=== PATIENT | male | born 1955 | race Caucasian/White ===

== ENCOUNTER 2017-08-21 08:47 | Inpatient (IN) | payer OTHER ==
[2017-08-21] MEDS ORDERED: ONDANSETRON 4 MG/2 ML VIAL IVPUSH ONE ×2 (09:38→14:35)
[2017-08-21] MEDS ORDERED: SODIUM CHLORIDE 0.9% 500 ML INFUS.BAG IV ONE ×2 (09:38→12:11)
[2017-08-21 10:08] LABS: BASOPHIL 0.5 % (0-2.0); EOSINOPHIL 0.2 % (0-4.5); MCH 32.3 pg (25.7-33.7); MEAN CELL VOLUME 94.9 fl (80-96); MEAN PLT VOLUME 8.7 fl (7.5-11.1); NEUTROPHILS 80.8 % (42.8-82.8); PLATELET COUNT 264 K/MM3 (134-434); RDW 12.9 % (11.9-15.9); WHITE BLOOD COUNT 12.1 K/mm3 (4.0-10.0)
[2017-08-21] MEDS ORDERED: ONDANSETRON 4 MG/2 ML VIAL ONE ×2 (10:14→14:35)
[2017-08-21 10:21] LABS: INR 1.08 (0.82-1.09); PROTHROMBIN TIME (PATIENT) 11.9 SEC (9.98-11.88)
[2017-08-21 10:23] LABS: ACTIVATED PTT 30.6 SECONDS (26.9-34.4)
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
[2017-08-21 10:35] LABS: ALK PHOS 110 U/L (45-117); ANION GAP 12 (8-16); CALCIUM 9.8 mg/dL (8.5-10.1); CO2 26 mmol/L (21-32); CREATININE 1.4 mg/dL (0.7-1.3); GLUCOSE,RANDOM 134 mg/dL (74-106); MAGNESIUM 2.4 mg/dL (1.8-2.4); SGOT/AST 81 U/L (15-37); SGPT/ALT 99 U/L (12-78); TOT PROT 8.1 g/dl (6.4-8.2)
[2017-08-21 12:04] LABS: URINE APPEARANCE CLEAR; URINE BILIRUBIN NEGATIVE (NEGATIVE); URINE BLOOD NEGATIVE (NEGATIVE); URINE COLOR AMBER; URINE GLUCOSE (UA) NEGATIVE (NEGATIVE); URINE KETONE NEGATIVE (NEGATIVE); URINE LEUK ESTERASE NEGATIVE (NEGATIVE); URINE NITRITE NEGATIVE (NEGATIVE); URINE PROTEIN NEGATIVE (NEGATIVE); URINE UROBILINOGEN 4.0 E.U/dl mg/dL (0.2-1.0)
[2017-08-21] MEDS ORDERED: LIDOCAINE HCL 2% JELLY (5 ML/TUBE) ONE (14:27)
[2017-08-21] MEDS ORDERED: morphine CARPU-JECT 4 MG/1 ML DISP.SYRIN IVPUSH ONE (14:57)
[2017-08-21] MEDS ORDERED: morphine CARPU-JECT 4 MG/1 ML DISP.SYRIN ONE (14:57)
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
--- NOTE | 2017-08-21 15:58 | EKG ---
Test Reason : Blood Pressure : / mmHG Vent. Rate : 100 BPM Atrial Rate : 100 BPM P-R Int : 152 ms QRS Dur : 082 ms QT Int : 338 ms P-R-T Axes : 057 -29 062 degrees QTc Int : 436 ms NORMAL SINUS RHYTHM POSSIBLE LEFT ATRIAL ENLARGEMENT NONSPECIFIC ST ABNORMALITY ABNORMAL ECG NO PREVIOUS ECGS AVAILABLE Confirmed by ABBY HERNANDEZ MD ([id number]) on 08/21/2017 3:57:22 PM Referred By: Confirmed By:ABBY HERNANDEZ MD
[2017-08-21] MEDS ORDERED: ONDANSETRON 4 MG/2 ML VIAL IVPB PRN ×2 (16:51→20:45)
[2017-08-21] MEDS ORDERED: morphine CARPU-JECT 2 MG/1 ML DISP.SYRIN IVPUSH PRN (16:51)
[2017-08-21] MEDS ORDERED: MIDAZOLAM HCL 2 MG/2 ML SINGLE DOSE VIAL ONE (16:53)
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
[2017-08-21] MEDS ORDERED: SODIUM CHLORIDE 1,000 ML IV SCH (17:00)
[2017-08-21] MEDS ORDERED: SUCCINYLCHOLINE CHLORIDE 200 MG/10 ML VIAL ONE (17:01)
[2017-08-21] MEDS ORDERED: PROPOFOL 20 ML ONE (17:02)
[2017-08-21] MEDS ORDERED: ROCURONIUM BROMIDE 50 MG/5 ML VIAL ONE (17:04)
[2017-08-21] MEDS ORDERED: CEFOXITIN SODIUM 1 GM IVPB ONE (17:04)
[2017-08-21] MEDS ORDERED: ePHEDrine SULFATE 50 MG/1 ML AMPULE ONE (17:30)
[2017-08-21] MEDS ORDERED: cefOXitin SODIUM 1 GM VIAL (RESTRICTED TO ID) IVPB ONE (17:38)
[2017-08-21] MEDS ORDERED: morphine CARPU-JECT 4 MG/1 ML DISP.SYRIN IVPUSH PRN (17:54)
[2017-08-21] MEDS ORDERED: DEXTROSE 5%-0.45% SALINE 1,000 ML IV SCH (18:00)
[2017-08-21] MEDS ORDERED: HYDROmorphone HCL/PF 1 MG/ML VIAL (FOR PYXIS CHARGING ONLY) ONE ×2 (18:00→18:23)
[2017-08-21] MEDS ORDERED: CALCIUM CHLORIDE 1 GM/10 ML *DISP.SYRIN ONE (18:21)
[2017-08-21] MEDS ORDERED: NEOSTIGMINE METHYLSULFATE 0.5 MG/ML - 10 ML MDV ONE (18:31)
[2017-08-21] MEDS ORDERED: GLYCOPYRROLATE 0.2 MG/1 ML VIAL ONE (18:31)
--- NOTE | 2017-08-21 18:36 | PN ---
Teaching Attending Note Name of Resident: Norma Sales ATTENDING PHYSICIAN STATEMENT I saw and evaluated the patient. I reviewed the resident's note and discussed the case with the resident. I agree with the resident's findings and plan as documented. SUBJECTIVE: Pt is seen after surgery in recovery CC: N/V , Abd pain x few days HPI : has h/o ventral hernia which was reducible in past. he developed abd pain few days ago. Skin above abd hernia was became erythematous and hernia became non-reducible. he developed N/V , and then constipation . in ER he was found to have incarcerated hernia , and went to OR OBJECTIVE: drowsy but arousable. Dry MM, NGT with green drainage CV: RRR, tachy Lungs : clear anteriorly Abd : soft, positive BS , surgical dressing on mid abd. TTP . Ext : no edema ASSESSMENT AND PLAN: 62 y/o man with h/o abd wall hernia after laparotomy, h/o HTN who presented with abd pain and was found to have incarcerated hernia 1- Incarcerated ventral hernia: s/p surgical repair POD0. significant blood loss reported during sx . - check CBC in 2 hours . - start meropenem due to the degree of ischemia seen ( given zosyn per Surgical PA ) - ID consult - send blood cx - IVF - pain control , morphine - NPO - monitor electrolytes and blood count. 2- h/o HTN: hold po meds . - labetalol IV PRN fro BP > 170/100 3- DVT px : SCDS, hold any heparin ICU placement Critical Care Total Critical Care Time (in minutes): 45 Critical Care Statement: The care of this patient involved high complexity decision making to prevent further life threatening deterioration of the patient 's condition and/or to evaluate & treat vital organ system(s) failure or risk of failure.
[2017-08-21] MEDS ORDERED: LABETALOL HCL 5 MG/1 ML (100MG/20 ML VIAL) IVPUSH PRN (18:47)
[2017-08-21] MEDS ORDERED: HYDROmorphone *PCA* 10MG/50ML DISP.SYRIN PCA SCH (19:30)
[2017-08-21] MEDS ORDERED: LACTATED RINGERS SOLUTION 1,000 ML IV SCH (19:30)
--- NOTE | 2017-08-21 19:33 | CONSULT ---
Consult Consult Specialty:: Surgery Reason for Consultation:: Intraoperative consultation- incarcerated hernia with small bowel involvement and mesenteric edema - History of Present Illness History of Present Illness: 62 male brought emergently to OR by Dr Orlando for incarecerated ventral hernia Intraop noted to have small bowel involvement with diffuse mesenteric edema and congestion Asked for intraoperative consult Needed small bowel resection for mesenteric congestion and involvement Agree with findings and operative management by Dr Orlando - History Source History Provided By: Medical Record Limitations to Obtaining History: Intubated - Alcohol/Substance Use Hx Alcohol Use: No - Smoking History Smoking history: Never smoked Home Medications - Allergies Allergies/Adverse Reactions: Allergies Allergy/AdvReac Type Severity Reaction Status Date / Time No Known Allergies Allergy Verified 08/21/17 08:56 - Home Medications Home Medications: Ambulatory Orders Aspirin [ASA -] 81 mg PO DAILY 08/21/17 Lisinopril/Hydrochlorothiazide [Lisinopril-Hctz 10-12.5 mg Tab] 1 each PO DAILY 08/21/17 Family Disease History - Family Disease History Family History: Unable to Obtain Review of Systems Unable to obtain ROS, reason: Intraop Physical Exam Vital Signs: Vital Signs Temperature 98.3 F 08/21/17 13:38 Pulse Rate 98 H 08/21/17 15:23 Respiratory Rate 18 08/21/17 15:23 Blood Pressure 125/104 08/21/17 15:23 O2 Sat by Pulse Oximetry (%) 95 08/21/17 15:23 Gastrointestinal: Yes: Other (Incarcerated small bowel with diffuse mesenteric congestion) Problem List - Problems (1) Incarcerated hernia Code(s): K46.0 - UNSP ABDOMINAL HERNIA WITH OBSTRUCTION, WITHOUT GANGRENE Assessment/Plan Intraop consult Agree with Dr Orlando's findings Small bowel resection needed for mesenteric congestion and edema and bowel incarceration
--- NOTE | 2017-08-21 19:33 | CONSULT ---
Consult Consult Specialty:: Surgery Reason for Consultation:: Strangulated ventral hernia, intestuinal obstruction. Consult dictated, [place]. [id number]. - Alcohol/Substance Use Hx Alcohol Use: No - Smoking History Smoking history: Never smoked Home Medications - Allergies Allergies/Adverse Reactions: Allergies Allergy/AdvReac Type Severity Reaction Status Date / Time No Known Allergies Allergy Verified 08/21/17 08:56 - Home Medications Home Medications: Ambulatory Orders Aspirin [ASA -] 81 mg PO DAILY 08/21/17 Lisinopril/Hydrochlorothiazide [Lisinopril-Hctz 10-12.5 mg Tab] 1 each PO DAILY 08/21/17 Physical Exam Vital Signs: Vital Signs Temperature 98.3 F 08/21/17 13:38 Pulse Rate 98 H 08/21/17 15:23 Respiratory Rate 18 08/21/17 15:23 Blood Pressure 125/104 08/21/17 15:23 O2 Sat by Pulse Oximetry (%) 95 08/21/17 15:23 Assessment/Plan Incarcerated ventral hernia with strangulation , Renal dysfunction, Leucocytosis, Hypertension. Plan : Emergency laparotomy, hydrate , consent obtained. Antibiotics
[2017-08-21] MEDS: HYDROmorphone HCL CARPU-JECT 1 MG/1 ML DISP.SYRIN IVPUSH PRN ×4 (19:35→19:50)
[2017-08-21] MEDS ORDERED: HYDROmorphone HCL CARPU-JECT 2 MG/1 ML DISP.SYRIN ONE ×2 (19:35→20:06)
--- NOTE | 2017-08-21 19:39 | OP ---
Operative Note - Note: Operative Date: 08/21/17 Pre-Operative Diagnosis: Strangulated ventral / incisonal hernia,. Hyperetension,. Renal dysfunction ,. Dehydration,. Leucocytosis. Operation: Exploratory laparotomy,. Release of strangulated omentum and small intestine. Small bowel resection with anastamosis,. Omentectomy, lysis of adhesions,. Primary repair of incisional hernia. Findings: Incarcerated incisional / ventral hernia with strangulation. Srangulated small intestine and omentum, Omental adhesions, Massive edema of small bowel mesentery. Post-Operative Diagnosis: Other (Strangulated incisional / ventral hernia, infarcted gangrenous omentum , excised; srangulated loop of small intestinr resected and primary anastamosis performed, marked edematous mesentery of small intestine to the base of the mesentery, with venous congestion.) Surgeon: Jg Orlando Hydrogen Power Plant Engineer: Marguerite Bolden () Anesthesiologist/VELVET STEAMER: Petra Ling Anesthesia: General Specimens Removed: 1)Infarcted omentum,. 2) Strangulated small intestine. Estimated Blood Loss (mls): 250 Operative Report Dictated: Yes
[2017-08-21] MEDS ORDERED: PIPERACILLIN/TAZOB 4.5 GM 4.5 GM in DEXTROSE 5%-WATER - 100 ML IVPB ONE (19:52)
[2017-08-21] MEDS ORDERED: PIPERACILLIN/TAZOB 3.375 GM 3.375 GM in DEXTROSE 5%-WATER - 50 ML IVPB SCH (20:00)
[2017-08-21] MEDS ORDERED: MEROPENEM 500 MG VIAL (RESTRICTED TO ID) IVPB SCH (20:00)
[2017-08-21] MEDS ORDERED: HYDROmorphone HCL CARPU-JECT 1 MG/1 ML DISP.SYRIN IVPUSH ONE (20:10)
[2017-08-21] MEDS ORDERED: HYDROmorphone *PCA* 10MG/50ML DISP.SYRIN PCA ONE (20:38)
[2017-08-21] MEDS ORDERED: HYDROmorphone HCL CARPU-JECT 1 MG/1 ML DISP.SYRIN IVPUSH PRN (20:45)
[2017-08-21] MEDS: HYDROmorphone *PCA* 10MG/50ML DISP.SYRIN PCA SCH (21:00)
[2017-08-21] MEDS: MEROPENEM 500 MG in DEXTROSE 5%-WATER - 100 ML IVPB SCH (21:20)
--- NOTE | 2017-08-21 21:49 | SURG ---
Surgery Artificial Foliage Arranger Note Artificial Foliage Arranger: Marguerite Bolden PA-C Date of Service: 08/21/17 Diagnosis: Strangulated ventral / incisonal hernia,. Hyperetension,. Renal dysfunction , . Dehydration,. Leucocytosis. Procedure: Exploratory laparotomy,. Release of strangulated omentum and small intestine. Small bowel resection with anastamosis,. Omentectomy, lysis of adhesions,. Primary repair of incisional hernia. I was present for the entirety of the operative procedure. For further detail, please refer to operative report. Visit type - Case Type Case Type: ED Admission - Emergency Emergency Visit: Yes ED Registration Date: 08/21/17 Care time: The patient presented to the Emergency Department on the above date and was hospitalized for further evaluation of their emergent condition. - New patient This patient is new to me today: Yes Date on this admission: 08/21/17 - Critical Care Critical Care patient: No
[2017-08-21] MEDS ORDERED: HEPARIN NA (PORCINE) 5,000 UNITS/ML 1ML VIAL SQ SCH (22:00)
[2017-08-21] MEDS: LACTATED RINGERS SOLUTION 1,000 ML IV SCH (22:30)
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
[2017-08-22 01:34] VITALS: BMI 27.6
[2017-08-22] MEDS ORDERED: PIPERACILLIN/TAZOB 3.375 GM 3.375 GM in DEXTROSE 5%-WATER - 50 ML IVPB ONE (04:00)
[2017-08-22] MEDS: MEROPENEM 500 MG in DEXTROSE 5%-WATER - 100 ML IVPB SCH (05:15)
[2017-08-22 05:54] LABS: BASOPHIL 0.1 % (0-2.0); MCH 33.5 pg (25.7-33.7); MCHC 34.8 g/dl (32.0-35.9); MEAN CELL VOLUME 96.2 fl (80-96); MEAN PLT VOLUME 8.6 fl (7.5-11.1); NEUTROPHILS 85.9 % (42.8-82.8); PLATELET COUNT 230 K/MM3 (134-434); RDW 13.2 % (11.9-15.9)
[2017-08-22 06:21] LABS: ALBUMIN 2.8 g/dl (3.4-5.0); ANION GAP 10 (8-16); CALCIUM 8.2 mg/dL (8.5-10.1); CO2 23 mmol/L (21-32); CREATININE 1.7 mg/dL (0.7-1.3); GLUCOSE,RANDOM 127 mg/dL (74-106); PHOSPHOROUS 4.1 mg/dL (2.5-4.9); SGOT/AST 58 U/L (15-37); SGPT/ALT 86 U/L (12-78)
[2017-08-22 06:24] LABS: ALK PHOS 61 U/L (45-117); BILIRUBIN,TOTAL 1.9 mg/dL (0.2-1.0); TOT PROT 5.1 g/dl (6.4-8.2)
--- NOTE | 2017-08-22 08:07 | PN ---
Physical Exam: SUBJECTIVE: Patient seen and examined. POD#1 "Strangulated incisional / ventral hernia, infarcted gangrenous omentum , excised; srangulated loop of small intestinr resected and primary anastamosis performed, marked edematous mesentery of small intestine to the base of the mesentery, with venous congestion" OBJECTIVE: Vital Signs Period Temp Pulse Resp BP Sys/Jacome Pulse Ox Last 24 Hr 97.9 F-98.2 F 88-128 10-24 81-166/58-104 95-100 Intake & Output 08/19/17 08/20/17 08/21/17 08/22/17 23:59 23:59 23:59 23:59 Intake Total 4000 Output Total 400 100 Balance 3600 -100 Weight 84.822 kg 90 kg Constitutional: Yes: Calm Eyes: Yes: Conjunctiva Clear, EOM Intact Cardiovascular: Yes: Regular Rate and Rhythm, S1, S2 Respiratory: Yes: CTA Bilaterally Gastrointestinal: Yes: Distention, Hypoactive Bowel Sounds, Tenderness. Clean wound. Edema: No Wound/Incision: Yes: Clean/Dry, Dressing Dry and Intact Neurological: Yes: Alert, Oriented ...Motor Strength: WNL Psychiatric: Yes: Alert, Oriented Laboratory Results - last 24 hr 08/22/17 08/22/17 05:00 05:00 WBC 8.0 D RBC 3.37 L D Hgb 11.3 L D Hct 32.4 L D MCV 96.2 H MCH 33.5 MCHC 34.8 RDW 13.2 Plt Count 230 MPV 8.6 Neutrophils % 85.9 H Lymphocytes % 5.7 L D Monocytes % 8.3 Eosinophils % 0.0 D Basophils % 0.1 Sodium 142 Potassium 4.6 Chloride 109 H D Carbon Dioxide 23 Anion Gap 10 BUN 39 H Creatinine 1.7 H D Creat Clearance w eGFR 40.78 Random Glucose 127 H Calcium 8.2 L Phosphorus 4.1 Magnesium 2.0 Total Bilirubin 1.9 H AST 58 H D ALT 86 H Alkaline Phosphatase 61 D Total Protein 5.1 L D Albumin 2.8 L D Active Medications Generic Name Dose Route Start Last Admin Trade Name Freq PRN Reason Stop Dose Admin Hydromorphone HCl 0 mg 08/21/17 20:45 08/21/17 21:00 Dilaudid Sign Language Interpreter - WEIGH MACHINE OPERATOR 08/28/17 19:23 10 mg WEIGH MACHINE OPERATOR SANTOSH Administration Protocol Hydromorphone HCl 0.5 mg 08/21/17 20:45 Dilaudid Injection - IVPUSH 08/24/17 19:22 [id number] PRN PAIN Lactated Ringer's 1,000 mls @ 125 mls/hr 08/21/17 22:30 08/21/17 22:30 Lactated Ringers Solution IV 125 mls/hr ASDIR SANTOSH Administration Meropenem 500 mg 08/21/17 20:00 Merrem (Restricted To Id) - IVPB 08/22/17 19:59 Q8H-IV SANTOSH Ondansetron HCl 4 mg 08/21/17 20:45 Zofran Injection IVPB Q6H PRN NAUSEA ASSESSMENT/PLAN: a/p: 62 yo man with strangulated hernia c/b infarcted gangrenous omentum POD: 0 , LORE likely prerenal from abdominal sepsis NPO Boluses of Lactated ringer's to correct creatinine from prerenal LORE Zofran prn for nausea Pain management with WEIGH MACHINE OPERATOR ABX coverage Incentive spirometry O2 for sat >90% Outpatient follow up of lung nodule seen on CT SCD for DVT prophylaxis Visit type - Emergency Visit Emergency Visit: No - New Patient This patient is new to me today: Yes Date on this admission: 08/22/17 - Critical Care Critical Care patient: Yes Total Critical Care Time (in minutes): 30 Critical Care Statement: The care of this patient involved high complexity decision making to prevent further life threatening deterioration of the patient 's condition and/or to evaluate & treat vital organ system(s) failure or risk of failure.
[2017-08-22] MEDS ORDERED: LACTATED RINGERS SOLUTION 1,000 ML IV ONE (08:27)
--- NOTE | 2017-08-22 08:36 | PN ---
Progress Note, Physician Chief Complaint: Patient is awake, alert , fairly comfortable. History of Present Illness: S/P laparotomy , resection of strangulated small intestine and omentum , primary repair of ventral hernia, with lysis of adhesions. P.o.day 1 - Current Medication List Current Medications: Active Medications Hydromorphone HCl (Dilaudid Sound Technician -) 0 mg INTAKE COORDINATOR INTAKE COORDINATOR SANTOSH PRN Reason: Protocol Stop: 08/28/17 19:23 Last Admin: 08/21/17 21:00 Dose: 10 mg Hydromorphone HCl (Dilaudid Injection -) 0.5 mg IVPUSH [id number] PRN PRN Reason: PAIN Stop: 08/24/17 19:22 Lactated Ringer's (Lactated Ringers Solution) 1,000 mls @ 125 mls/hr IV ASDIR SANTOSH Last Admin: 08/21/17 22:30 Dose: 125 mls/hr Meropenem (Merrem (Restricted To Id) -) 500 mg IVPB Q8H-IV SANTOSH Stop: 08/23/17 12:59 Ondansetron HCl (Zofran Injection) 4 mg IVPB Q6H PRN PRN Reason: NAUSEA - Objective Vital Signs: Vital Signs Temperature 98.2 F 08/22/17 05:00 Pulse Rate 88 08/22/17 07:00 Respiratory Rate 18 08/22/17 07:00 Blood Pressure 99/69 08/22/17 07:00 O2 Sat by Pulse Oximetry (%) 95 08/22/17 01:15 Labs: CBC, BMP 08/22/17 05:00 08/22/17 05:00 INR, PTT INR 1.08 (0.82-1.09) 08/21/17 09:45 Problem List - Problems (1) Small intestinal gangrene Code(s): K55.029 - ACUTE INFARCTION OF SMALL INTESTINE, EXTENT UNSPECIFIED (2) Omental infarction Code(s): K55.069 - ACUTE INFARCTION OF INTESTINE, PART AND EXTENT UNSPECIFIED (3) Elevated BUN Code(s): R79.9 - ABNORMAL FINDING OF BLOOD CHEMISTRY, UNSPECIFIED (4) Elevated serum creatinine Code(s): R79.89 - OTHER SPECIFIED ABNORMAL FINDINGS OF BLOOD CHEMISTRY Assessment/Plan Patient is alert , he is informed of operative findings and surgical procedure. Legs are normal, Wound is clean. Creatinine elevated. WBC is normal. Albumin 2.7 , low. Monitor renal function . I & O , Continue nasogastric aspiration , Antibiotics Out of bed . Chest PT. Resumr DVT chemoprophylaxis.
[2017-08-22] MEDS ORDERED: LACTATED RINGERS SOLUTION 500 ML IV ONE (08:54)
--- NOTE | 2017-08-22 09:50 | PN ---
Progress Note (short form) - Note Progress Note: POD #1 - s/p exploratory laparotomy, resection of strangulated small intestine, repair of ventral hernia under general anesthesia. VSS. Pt. doing well, resting comfortably in bed. No complaints. Good pain control on dilaudid ENVIRONMENTAL ENGINEER SCIENTIST. Creatinine a little elevated and urine output down a little. Will need more IV hydration - boluses ordered. Will continue ENVIRONMENTAL ENGINEER SCIENTIST and reevaluate tomorrow.
--- NOTE | 2017-08-22 12:42 | OP ---
DATE OF OPERATION: 08/21/2017 PREOPERATIVE DIAGNOSES: Strangulated ventral/incisional hernia, hypertension, renal dysfunction, dehydration, and leukocytosis. POSTOPERATIVE DIAGNOSES: 1. Incarcerated incisional/ventral hernia with strangulation of omentum and small intestine. 2. Omental adhesions. 3. Massive edema of the small-bowel mesentery with venous congestion. 4. Infarcted gangrenous omentum (excised). 5. Strangulated loop of small intestine, resected with primary anastomosis. 6. Marked edema of the mesentery of small intestine to the base of the mesentery, with venous congestion. SURGEON: Candice Orlando MD SILK FINISHER: BRIAN Coelho and Calvin Gifford MD, with intraoperative consultation and dental assistant teacher. ANESTHESIA: General. ANESTHESIOLOGIST: OPERATIVE DESCRIPTION: This 62-year-old man with history of hypertension on medication came to the emergency room complaining of swelling in his incisional/ventral hernia for the past 4 days with increasing swelling, vomiting , abdominal pain, and distention. The patient was seen, was in a lot of pain. He had swelling and tenderness in the epigastrium above the umbilicus with a large nonreducible mass and erythematous skin over it. He also had elevated BUN and creatinine secondary to dehydration, and leukocytosis. He had a CAT scan of the abdomen which showed herniated small bowel with intestinal obstruction. The mass was not reducible. He had diffuse abdominal pain and tenderness. Patient was resuscitated with 3 L normal saline. The patient was brought up to the holding area at about 2:43 p.m. However, he was held in the holding area until he went into the operating room. Consent was obtained from the patient. His was also explained about the severity of his condition and the possibility of of bowel as well. Patient was given general anesthesia. The abdomen was painted and draped. Nicholson catheter was placed in the bladder. The NG tube was draining bilious material. The abdomen was opened through a vertical midline incision. On making the incision, there was noted a large strangulated hernia defect in the abdominal wall in the midline. This was carefully , and it was noted there was a 2-3 cm defect of the abdominal wall, through which there was a large piece of omentum that had been strangulated and infarcted. The sac was excised, and the omentum was resected and sent to Pathology. The incision was then opened above and below the defect. The small bowel was markedly distended until the loop that was trapped, and the hernia was identified. This was about 6-8 cm in length with constriction on both sides. The distal small bowel was collapsed. However, there was marked edema of the mesentery of the small bowel up to this point, with marked edema of the mesentery, secondary severe venous congestion. The mesentery was very friable. The loop of bowel, small intestine, that was trapped, was very congested. It was decided to resect this segment of the small intestine using KYLEE stapling device. The mesentery was also markedly erythematous, and edematous, and it was oversewn with 3-0 silk sutures in a locking fashion. A ecsh-fa-hyry anastomosis of viable proximal distended small bowel and distally collapsed small bowel, was done around the antimesenteric aspect using KYLEE stapling device after opening the staple line on the antimesenteric side of the bowel after the bowel had been resected. The resected loop of small intestine was sent to Pathology. An adequate anastomosis was performed using 60 mm KYLEE stapling device. The open end of the 2 loops of bowel was then closed off with another layer of KYLEE ford to close the defect. The anastomosis was adequate. The open end of the bowel was closed off, was then resected, leaving an adequate arxb-yh-sjek anastomosis of the loops of bowel, which was essentially a functional end-to-end. A few seromuscular 3-0 silk sutures were obtained to bury the anastomosis. The anastomosis was adequate. The mesentery was carefully approximated with interrupted silk sutures. The mesentery was very erythematous and edematous. The bowel with anastomosis was viable. The bowel was returned to the abdominal cavity. The abdominal cavity was thoroughly irrigated with normal saline. There was no bleeding from the site. The hernia was then repaired primarily using continuous No. 1 PDS sutures. The skin was loosely approximated with interrupted ford. Between the staple line , the wound was packed with Iodoform gauze. Sterile dressing was applied. Estimated blood loss was between 250 to 300 mL. The procedure was then completed, which consisted of exploratory laparotomy, resection of strangulated loop of small intestine with end-to-end anastomosis, lysis of omental adhesions, omentectomy, and primary repair of the incisional hernia. Patient was sent to the recovery room and then to the ICU in critical condition. Susan [id number] cc: Calvin Gifford MD [facility]
[2017-08-22] MEDS ORDERED: LACTATED RINGERS SOLUTION 1,000 ML IV SCH (12:45)
--- NOTE | 2017-08-22 12:51 | PN ---
Teaching Attending Note Name of Resident: Marcel Tilley ATTENDING PHYSICIAN STATEMENT I saw and evaluated the patient. I reviewed the resident's note and discussed the case with the resident. I agree with the resident's findings and plan as documented. SUBJECTIVE: Patient seen and examined in the ICU. Awake and alert. Pain reasonably controlled by ETIOLOGIST. No BM. Minimal flatus. No CP or SOB. Intake & Output 08/19/17 08/20/17 08/21/17 08/22/17 23:59 23:59 23:59 23:59 Intake Total 4000 Output Total 400 100 Balance 3600 -100 Weight 187 lb 198 lb 6.656 oz Last Vital Signs Temp Pulse Resp BP Pulse Ox 98.4 F 105 H 16 92/61 95 08/22/17 10:00 08/22/17 12:00 08/22/17 12:00 08/22/17 12:00 08/22/17 09:00 Active Medications Heparin Sodium (Porcine) (Heparin -) 5,000 unit SQ TID SANTOSH Hydromorphone HCl (Dilaudid Flight Engineer Instructor -) 0 mg ETIOLOGIST ETIOLOGIST SANTOSH PRN Reason: Protocol Stop: 08/28/17 19:23 Last Admin: 08/21/17 21:00 Dose: 10 mg Hydromorphone HCl (Dilaudid Injection -) 0.5 mg IVPUSH [id number] PRN PRN Reason: PAIN Stop: 08/24/17 19:22 Lactated Ringer's (Lactated Ringers Solution) 1,000 mls @ 125 mls/hr IV ASDIR SANTOSH Last Admin: 08/21/17 22:30 Dose: 125 mls/hr Lactated Ringer's (Lactated Ringers Solution) 1,000 mls @ 500 mls/hr IV ASDIR SANTOSH Meropenem (Merrem (Restricted To Id) -) 500 mg IVPB Q8H-IV SANTOSH Stop: 08/23/17 12:59 Ondansetron HCl (Zofran Injection) 4 mg IVPB Q6H PRN PRN Reason: NAUSEA Constitutional: Yes: Awake and alert Eyes: Yes: Conjunctiva Clear, EOM Intact Cardiovascular: Yes: Regular Rate and Rhythm, S1, S2 Respiratory: Yes: Diminished at he bases Gastrointestinal: Yes: Mildly distention, Hypoactive Bowel Sounds, Tenderness Edema: No Wound/Incision: Yes: Clean/Dry, Dressing Dry and Intact Neurological: Yes: Alert, Oriented ...Motor Strength: WNL Psychiatric: Yes: Alert, Oriented Labs: Laboratory Results - last 24 hr 08/21/17 08/22/17 08/22/17 11:55 05:00 05:00 WBC 8.0 D RBC 3.37 L D Hgb 11.3 L D Hct 32.4 L D MCV 96.2 H MCH 33.5 MCHC 34.8 RDW 13.2 Plt Count 230 MPV 8.6 Neutrophils % 85.9 H Lymphocytes % 5.7 L D Monocytes % 8.3 Eosinophils % 0.0 D Basophils % 0.1 Sodium 142 Potassium 4.6 Chloride 109 H D Carbon Dioxide 23 Anion Gap 10 BUN 39 H Creatinine 1.7 H D Creat Clearance w eGFR 40.78 POC Glucometer Random Glucose 127 H Calcium 8.2 L Phosphorus 4.1 Magnesium 2.0 Total Bilirubin 1.9 H AST 58 H D ALT 86 H Alkaline Phosphatase 61 D Total Protein 5.1 L D Albumin 2.8 L D Urine Color Annalise Urine Appearance Clear Urine pH 5.0 Ur Specific [place] 1.025 Urine Protein Negative Urine Glucose (UA) Negative Urine Ketones Negative Urine Blood Negative Urine Nitrite Negative Urine Bilirubin Negative Urine Urobilinogen 4.0 e.u/dl 08/22/17 09:51 WBC RBC Hgb Hct MCV MCH MCHC RDW Plt Count MPV Neutrophils % Lymphocytes % Monocytes % Eosinophils % Basophils % Sodium Potassium Chloride Carbon Dioxide Anion Gap BUN Creatinine Creat Clearance w eGFR POC Glucometer [id number] Random Glucose Calcium Phosphorus Magnesium Total Bilirubin AST ALT Alkaline Phosphatase Total Protein Albumin Urine Color Urine Appearance Urine pH Ur Specific [place] Urine Protein Urine Glucose (UA) Urine Ketones Urine Blood Urine Nitrite Urine Bilirubin Urine Urobilinogen Problem List - Problems (1) Hernia of abdominal cavity, with obstruction Code(s): K46.0 - UNSP ABDOMINAL HERNIA WITH OBSTRUCTION, WITHOUT GANGRENE (2) Incarcerated hernia Code(s): K46.0 - UNSP ABDOMINAL HERNIA WITH OBSTRUCTION, WITHOUT GANGRENE (3) Pulmonary nodule Code(s): R91.1 - SOLITARY PULMONARY NODULE Assessment/Plan POD #1 SB resection with primary anastomosis due to strangulated hernia, infarcted gangrenous omentum LORE NPO NGT to LWS Zofran prn for nausea Pain management with ETIOLOGIST ABX coverage Incentive spirometry O2 for sat >90% Outpatient follow up of lung nodule seen on CT SCD for DVT prophylaxis Dr Eddy Critical care time spent in reviewing chart, evaluating patient and formulating plan - 35 minutes.
[2017-08-22] MEDS ORDERED: LACTATED RINGERS SOLUTION 500 ML IV SCH (12:53)
[2017-08-22] MEDS ORDERED: MEROPENEM 500 MG VIAL (RESTRICTED TO ID) IVPB SCH (13:00)
[2017-08-22] MEDS: HEPARIN NA (PORCINE) 5,000 UNITS/ML 1ML VIAL SQ SCH ×2 (13:43→22:00)
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
[2017-08-22] MEDS: MEROPENEM 1 GM in DEXTROSE 5%-WATER - 100 ML IVPB SCH ×2 (15:29→17:18)
--- NOTE | 2017-08-22 15:44 | PN ---
Teaching Attending Note Name of Resident: Norma Sales ATTENDING PHYSICIAN STATEMENT I saw and evaluated the patient. I reviewed the resident's note and discussed the case with the resident. I agree with the resident's findings and plan as documented. SUBJECTIVE: Feels better than yesterday . abd pain , well controlled with dialudid . no N/V OBJECTIVE: NAD , NGT in CV : RRR, slightly tachy Lungs : CTAB Ext : no edema ABd: soft, TTP in all quadrants . mid line surgical dressing , No BS heard ASSESSMENT AND PLAN: 62 y/o man with h/o abd wall hernia after laparotomy, h/o HTN who presented with abd pain and was found to have strangulated hernia 1- Strangulated ventral hernia: s/p small bowel resection and primary anastomosis, POD1 . No bowel functionobserved. 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 hypotensive 3- LORE: likely prerenal, - cont IVF ' - avoid hypotension 4-Transaminitis : . improved . monitor 5- DVT px : SCDS, heparin ICU level of care Critical Care Total Critical Care Time (in minutes): 30 Critical Care Statement: The care of this patient involved high complexity decision making to prevent further life threatening deterioration of the patient 's condition and/or to evaluate & treat vital organ system(s) failure or risk of failure.
[2017-08-22 15:50] LABS: MCH 33.8 pg (25.7-33.7); MCHC 34.7 g/dl (32.0-35.9); MEAN CELL VOLUME 97.3 fl (80-96); MEAN PLT VOLUME 8.9 fl (7.5-11.1); PLATELET COUNT 186 K/MM3 (134-434); WHITE BLOOD COUNT 7.4 K/mm3 (4.0-10.0)
[2017-08-22 19:43] LABS: ANION GAP 4 (8-16); CALCIUM 8.3 mg/dL (8.5-10.1); CO2 28 mmol/L (21-32); CREATININE 1.4 mg/dL (0.7-1.3); GLUCOSE,RANDOM 110 mg/dL (74-106)
--- NOTE | 2017-08-22 20:33 | PN ---
Physical Exam: SUBJECTIVE: Patient seen and examined No new C/o. No vomiting. OBJECTIVE: Vital Signs Period Temp Pulse Resp BP Sys/Jacome Pulse Ox Last 24 Hr 98 F-98.8 F 88-124 10-24 81-120/58-77 95-100 GENERAL: The patient is awake, alert, and fully oriented, in no acute distress. HEAD: Normal with no signs of trauma. EYES: PERRL, extraocular movements intact, sclera anicteric, conjunctiva clear. No ptosis. ENT: Ears normal, nares patent, oropharynx clear without exudates, moist mucous membranes. NECK: Trachea midline, full range of motion, supple. LUNGS: Breath sounds equal, clear to auscultation bilaterally, no wheezes, no crackles, no accessory muscle use. HEART: Regular rate and rhythm, S1, S2 without murmur, rub or gallop. ABDOMEN: Soft, midline dressing in place , clean dry, appropriately tender, hypoactive bowel sounds, EXTREMITIES: 2+ pulses, warm, well-perfused, no edema. NEUROLOGICAL: Cranial nerves II through XII grossly intact. Normal speech, gait not observed. PSYCH: Normal mood, normal affect. SKIN: Warm, dry, normal turgor, no rashes or lesions noted Laboratory Results - last 24 hr 08/22/17 08/22/17 08/22/17 05:00 05:00 09:51 WBC 8.0 D RBC 3.37 L D Hgb 11.3 L D Hct 32.4 L D MCV 96.2 H MCH 33.5 MCHC 34.8 RDW 13.2 Plt Count 230 MPV 8.6 Neutrophils % 85.9 H Lymphocytes % 5.7 L D Monocytes % 8.3 Eosinophils % 0.0 D Basophils % 0.1 Sodium 142 Potassium 4.6 Chloride 109 H D Carbon Dioxide 23 Anion Gap 10 BUN 39 H Creatinine 1.7 H D Creat Clearance w eGFR 40.78 POC Glucometer 113.22402 Random Glucose 127 H Calcium 8.2 L Phosphorus 4.1 Magnesium 2.0 Total Bilirubin 1.9 H AST 58 H D ALT 86 H Alkaline Phosphatase 61 D Total Protein 5.1 L D Albumin 2.8 L D 08/22/17 08/22/17 15:30 18:30 WBC 7.4 RBC 3.08 L Hgb 10.4 L Hct 30.0 L MCV 97.3 H MCH 33.8 H MCHC 34.7 RDW 13.0 Plt Count 186 MPV 8.9 Neutrophils % Lymphocytes % Monocytes % Eosinophils % Basophils % Sodium 141 Potassium 4.1 Chloride 109 H Carbon Dioxide 28 D Anion Gap 4 L BUN 38 H Creatinine 1.4 H Creat Clearance w eGFR POC Glucometer Random Glucose 110 H Calcium 8.3 L Phosphorus Magnesium Total Bilirubin AST ALT Alkaline Phosphatase Total Protein Albumin Active Medications Generic Name Dose Route Start Last Admin Trade Name Freq PRN Reason Stop Dose Admin Chlorhexidine Gluconate 1 applic 08/22/17 22:00 Hibiclens For Decolonization - TP HS SANTOSH Heparin Sodium (Porcine) 5,000 unit 08/22/17 14:00 08/22/17 13:43 Heparin - SQ 5,000 unit TID SANTOSH Administration Hydromorphone HCl 0 mg 08/21/17 20:45 08/21/17 21:00 Dilaudid Glass Finisher - MULTI CARE TECHNICIAN 08/28/17 19:23 10 mg MULTI CARE TECHNICIAN SANTOSH Administration Protocol Hydromorphone HCl 0.5 mg 08/21/17 20:45 Dilaudid Injection - IVPUSH 08/24/17 19:22 [id number] PRN PAIN Lactated Ringer's 1,000 mls @ 125 mls/hr 08/21/17 22:30 08/21/17 22:30 Lactated Ringers Solution IV 125 mls/hr ASDIR SANTOSH Administration Meropenem 1 gm/ Dextrose 100 mls @ 200 mls/hr 08/22/17 14:15 08/22/17 17:18 IVPB 200 mls/hr Q8H-IV SANTOSH Administration Protocol Mupirocin 1 applic 08/22/17 22:00 Bactroban Ointment (For Decolonization) - NS 08/27/17 21:59 BID SANTOSH Ondansetron HCl 4 mg 08/21/17 20:45 Zofran Injection IVPB Q6H PRN NAUSEA ASSESSMENT/PLAN: 62 y/o man with h/o abd wall hernia after laparotomy, h/o HTN who presented with abd pain and was found to have strangulated hernia 1- Strangulated ventral hernia: s/p small bowel resection and primary anastomosis, POD1 . No bowel function observed. 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 hypotensive 3- LORE: likely prerenal, - cont IVF ' - avoid hypotension 4-Transaminitis : . improved . monitor 5- DVT px : SCDS, heparin Visit type - Emergency Visit Emergency Visit: Yes ED Registration Date: 08/21/17 Care time: The patient presented to the Emergency Department on the above date and was hospitalized for further evaluation of their emergent condition. - New Patient This patient is new to me today: No - Critical Care Critical Care patient: Yes Total Critical Care Time (in minutes): 45 Critical Care Statement: The care of this patient involved high complexity decision making to prevent further life threatening deterioration of the patient 's condition and/or to evaluate & treat vital organ system(s) failure or risk of failure. - Discharge Referral Referred to [facility] Med [facility] No
[2017-08-22] MEDS ORDERED: LACTATED RINGERS SOLUTION 500 ML IV STA (20:39)
[2017-08-22] MEDS: MUPIROCIN 2% TOPICAL OINTMENT FOR DECOLONIZATION NS SCH (21:03)
[2017-08-22] MEDS: CHLORHEXIDINE GLUCONATE 4% CLEANSER FOR DECOLONIZATION TP SCH (21:03)
[2017-08-22] MEDS: LACTATED RINGERS SOLUTION 1,000 ML IV SCH (22:30)
[2017-08-23] MEDS ORDERED: HYDROmorphone *PCA* 10MG/50ML DISP.SYRIN PCA ONE (02:15)
[2017-08-23] MEDS: HYDROmorphone *PCA* 10MG/50ML DISP.SYRIN PCA SCH (02:40)
[2017-08-23] MEDS: MEROPENEM 1 GM in DEXTROSE 5%-WATER - 100 ML IVPB SCH ×3 (02:42→17:46)
[2017-08-23 05:58] LABS: BASOPHIL 0.2 % (0-2.0); EOSINOPHIL 0.1 % (0-4.5); MCH 33.6 pg (25.7-33.7); MCHC 34.8 g/dl (32.0-35.9); MEAN CELL VOLUME 96.7 fl (80-96); MEAN PLT VOLUME 8.7 fl (7.5-11.1); NEUTROPHILS 77.1 % (42.8-82.8); PLATELET COUNT 158 K/MM3 (134-434); RDW 13.2 % (11.9-15.9); WHITE BLOOD COUNT 3.9 K/mm3 (4.0-10.0)
[2017-08-23] MEDS: HEPARIN NA (PORCINE) 5,000 UNITS/ML 1ML VIAL SQ SCH ×3 (06:13→21:06)
[2017-08-23 06:26] LABS: ALBUMIN 2.4 g/dl (3.4-5.0); ALK PHOS 52 U/L (45-117); ANION GAP 7 (8-16); CALCIUM 8.5 mg/dL (8.5-10.1); CO2 30 mmol/L (21-32); CREATININE 1.1 mg/dL (0.7-1.3); GLUCOSE,RANDOM 101 mg/dL (74-106); MAGNESIUM 2.2 mg/dL (1.8-2.4); PHOSPHOROUS 1.5 mg/dL (2.5-4.9); SGOT/AST 34 U/L (15-37); SGPT/ALT 54 U/L (12-78); TOT PROT 5.1 g/dl (6.4-8.2)
--- NOTE | 2017-08-23 09:06 | PN ---
Physical Exam: SUBJECTIVE: Patient seen and examined No complaints. Sitting up in chair OBJECTIVE: Vital Signs Period Temp Pulse Resp BP Sys/Jacome Pulse Ox Last 24 Hr 98.2 F-98.8 F 89-117 16-23 81-162/61-79 97 GENERAL: The patient is awake, alert, and fully oriented, in no acute distress. HEAD: Normal with no signs of trauma. EYES: PERRL, extraocular movements intact, sclera anicteric, conjunctiva clear. No ptosis. ENT: NGT in place draining bilous fluids.Ears normal, nares patent, oropharynx clear without exudates, moist mucous membranes. NECK: Trachea midline, full range of motion, supple. LUNGS: Breath sounds equal, clear to auscultation bilaterally, no wheezes, no crackles, no accessory muscle use. HEART: Regular rate and rhythm, S1, S2 without murmur, rub or gallop. ABDOMEN: Soft, midline dressing in place , clean dry, appropriately tender, hypoactive bowel sounds. EXTREMITIES: 2+ pulses, warm, well-perfused, no edema. NEUROLOGICAL: Cranial nerves II through XII grossly intact. Normal speech, gait not observed. PSYCH: Normal mood, normal affect. SKIN: Warm, dry, normal turgor, no rashes or lesions noted : Nicholson in place draining clear urine Laboratory Results - last 24 hr 08/22/17 08/22/17 08/22/17 09:51 15:30 18:30 WBC 7.4 RBC 3.08 L Hgb 10.4 L Hct 30.0 L MCV 97.3 H MCH 33.8 H MCHC 34.7 RDW 13.0 Plt Count 186 MPV 8.9 Neutrophils % Lymphocytes % Monocytes % Eosinophils % Basophils % Sodium 141 Potassium 4.1 Chloride 109 H Carbon Dioxide 28 D Anion Gap 4 L BUN 38 H Creatinine 1.4 H Creat Clearance w eGFR POC Glucometer 113.05050 Random Glucose 110 H Calcium 8.3 L Phosphorus Magnesium Total Bilirubin AST ALT Alkaline Phosphatase Total Protein Albumin 08/22/17 08/23/17 08/23/17 21:28 05:15 05:15 WBC 3.9 L D RBC 2.59 L Hgb 8.7 L D Hct 25.0 L D MCV 96.7 H MCH 33.6 MCHC 34.8 RDW 13.2 Plt Count 158 MPV 8.7 Neutrophils % 77.1 Lymphocytes % 13.0 D Monocytes % 9.6 Eosinophils % 0.1 D Basophils % 0.2 Sodium 143 Potassium 3.7 Chloride 106 Carbon Dioxide 30 Anion Gap 7 L BUN 27 H D Creatinine 1.1 D Creat Clearance w eGFR > 60 POC Glucometer [phone] Random Glucose 101 Calcium 8.5 Phosphorus 1.5 L D Magnesium 2.2 Total Bilirubin 1.0 D AST 34 D ALT 54 D Alkaline Phosphatase 52 Total Protein 5.1 L Albumin 2.4 L Active Medications Generic Name Dose Route Start Last Admin Trade Name Freq PRN Reason Stop Dose Admin Chlorhexidine Gluconate 1 applic 08/22/17 22:00 08/22/17 21:03 Hibiclens For Decolonization - TP 1 applic HS SANTOSH Administration Heparin Sodium (Porcine) 5,000 unit 08/22/17 14:00 08/23/17 06:13 Heparin - SQ 5,000 unit TID SANTOSH Administration Hydromorphone HCl 0 mg 08/21/17 20:45 08/23/17 02:40 Dilaudid Chief Petroleum Engineer - SOLUTIONS EXECUTIVE CLOUD SALES 08/28/17 19:23 10 mg SOLUTIONS EXECUTIVE CLOUD SALES SANTOSH Administration Protocol Hydromorphone HCl 0.5 mg 08/21/17 20:45 Dilaudid Injection - IVPUSH 08/24/17 19:22 [id number] PRN PAIN Lactated Ringer's 1,000 mls @ 125 mls/hr 08/21/17 22:30 08/22/17 22:30 Lactated Ringers Solution IV 125 mls/hr ASDIR SANTOSH Administration Meropenem 1 gm/ Dextrose 100 mls @ 200 mls/hr 08/22/17 14:15 08/23/17 02:42 IVPB 200 mls/hr Q8H-IV SANTOSH Administration Protocol Mupirocin 1 applic 08/22/17 22:00 08/22/17 21:03 Bactroban Ointment (For Decolonization) - NS 08/27/17 21:59 1 applic BID SANTOSH Administration Ondansetron HCl 4 mg 08/21/17 20:45 Zofran Injection IVPB Q6H PRN NAUSEA ASSESSMENT/PLAN: 62 y/o man with h/o abd wall hernia after laparotomy, h/o HTN who presented with abd pain and was found to have strangulated hernia # Strangulated ventral hernia: s/p small bowel resection and primary anastomosis , POD1 . No bowel function observed. hypotensive this am s/p IVF bolus - cont IVF - cont meropenem - follow blood cx - pain control with dilaudid SOLUTIONS EXECUTIVE CLOUD SALES - monitor electrolyte and H&H , monitor for any signs of sepsis #Neutopenia On antibiotics repeat CBC watch #Anemia: not tachypneic no evidence of decompensation repeat CBC watch if hgb drops below 7 transfuse #h/o HTN: hold po meds . hypotensive #LORE: likely prerenal; Improving Cr-1.0 from 1.7 - cont IVF ' - avoid hypotension Visit type - Emergency Visit Emergency Visit: Yes ED Registration Date: 08/21/17 Care time: The patient presented to the Emergency Department on the above date and was hospitalized for further evaluation of their emergent condition. - New Patient This patient is new to me today: No - Critical Care Critical Care patient: Yes Total Critical Care Time (in minutes): 40 Critical Care Statement: The care of this patient involved high complexity decision making to prevent further life threatening deterioration of the patient 's condition and/or to evaluate & treat vital organ system(s) failure or risk of failure. - Discharge Referral Referred to [facility] Med [facility].C.: No
--- NOTE | 2017-08-23 09:10 | PN ---
Progress Note (short form) - Note Progress Note: Pot op day#2.P 106,BP126/75 and Spo2 100% on O2 3L NC.Patient stable and c/o pain score of 3-4/10.He did not use DRY JANITOR today so will DC DRY JANITOR and put patient on Dilaudid IV PRN.No any anesthesia related problem.Patient DC from the anesthesia care.
[2017-08-23] MEDS ORDERED: HYDROmorphone HCL CARPU-JECT 1 MG/1 ML DISP.SYRIN IVPB PRN (09:11)
--- NOTE | 2017-08-23 09:51 | PN ---
Teaching Attending Note Name of Resident: Norma Sales ATTENDING PHYSICIAN STATEMENT I saw and evaluated the patient. I reviewed the resident's note and discussed the case with the resident. I agree with the resident's findings and plan as documented. SUBJECTIVE: Minimal abd pain , has no fever or chills. NO N/V . OBJECTIVE: NAD , NGT in , AAOx3 CV : RRR Lungs : CTAB Ext : no edema ABD: soft, TTP in all quadrants . mid line surgical dressing , hypoactive BS ASSESSMENT AND PLAN: 62 y/o man with h/o abd wall hernia after laparotomy, h/o HTN who presented with abd pain and was found to have strangulated hernia 1- Strangulated ventral hernia: s/p small bowel resection and primary anastomosis, POD2. Bowel sounds have returned, but no flatus or BM. pain is controlled off EXPLORATION MANAGER . Hb dropped frm 16-->8.7 . - cont but decrease IVF - cont meropenem - blood cx neg to date ( drawn before abx ) - cont PRN dilaudid - replete electrolytes 2- h/o HTN: Not hypotensive any more . BP meds o n hold. - will resume if BP increases 3- Acute blood loss anemia : due to surgical loss. - No need fro transusion now , as he has no tachycardia, or hypotension or other Sx. - monitor . 4- LORE: likely prerenal, resolved - cont IVF 5-Transaminitis : resolved 6- DVT px : SCDS, heparin Transfer to med surg
--- NOTE | 2017-08-23 10:16 | PN ---
Progress Note (short form) - Note Progress Note: PULMONARY/CCM Pt seen and examined in the ICU. Pain controlled. No nausea or vomiting. No flatus or BM. No fevers or chills. Last Vital Signs Temp Pulse Resp BP Pulse Ox 98.7 F 85 20 146/79 97 08/23/17 02:00 08/23/17 10:00 08/23/17 10:00 08/23/17 10:00 08/22/17 20:11 Intake & Output 08/20/17 08/21/17 08/22/17 08/23/17 23:59 23:59 23:59 23:59 Intake Total 4000 3950 875 Output Total 400 1600 1300 Balance 3600 2350 -425 Weight 187 lb 198 lb 6.656 oz 198 lb 6.656 oz Gen: NAD at rest Heart: RRR Lung: decreased breath sounds at the bases Abd: soft, appropriately tender, no rebound, dressings clean, decreased bowel sounds Ext: no edema CBC, BMP 08/23/17 05:15 08/23/17 05:15 Active Medications Chlorhexidine Gluconate (Hibiclens For Decolonization -) 1 applic TP HS SANTOSH Last Admin: 08/22/17 21:03 Dose: 1 applic Heparin Sodium (Porcine) (Heparin -) 5,000 unit SQ TID SANTOSH Last Admin: 08/23/17 06:13 Dose: 5,000 unit Hydromorphone HCl (Dilaudid Injection -) 1 mg IVPB Q4H PRN PRN Reason: PAIN Meropenem 1 gm/ Dextrose 100 mls @ 200 mls/hr IVPB Q8H-IV SANTOSH PRN Reason: Protocol Last Admin: 08/23/17 02:42 Dose: 200 mls/hr Lactated Ringer's (Lactated Ringers Solution) 1,000 mls @ 75 mls/hr IV ASDIR SANTOSH Mupirocin (Bactroban Ointment (For Decolonization) -) 1 applic NS BID SANTOSH Stop: 08/27/17 21:59 Last Admin: 08/22/17 21:03 Dose: 1 applic Ondansetron HCl (Zofran Injection) 4 mg IVPB Q6H PRN PRN Reason: NAUSEA A/P Strangulated Ventral Hernia s/p exploratory laparotomy/small bowel resection/primary anastamosis Anemia Acute Kidney Injury improving HTN - on empiric antibiotics - pain control - incentive spirometry - await return of bowel function - IVF - OOB, ambulate - DVT prophylaxis - transfer to surgical floor when ok with surgery
[2017-08-23] MEDS ORDERED: PT OWN MED DRAWER 7, Y5N ONE ×2 (11:26→17:36)
[2017-08-23] MEDS: LACTATED RINGERS SOLUTION 1,000 ML IV SCH (11:28)
[2017-08-23] MEDS: MUPIROCIN 2% TOPICAL OINTMENT FOR DECOLONIZATION NS SCH ×2 (11:28→21:06)
[2017-08-23] MEDS: KCL 10 MEQ IVPB 100 ML IVPB SCH ×3 (12:03→14:41)
--- NOTE | 2017-08-23 13:43 | PN ---
Progress Note, Physician History of Present Illness: patient doing well c/o of throat and mouth pain - Current Medication List Current Medications: Active Medications Chlorhexidine Gluconate (Hibiclens For Decolonization -) 1 applic TP HS [facility] Last Admin: 08/22/17 21:03 Dose: 1 applic Heparin Sodium (Porcine) (Heparin -) 5,000 unit SQ TID [facility] Last Admin: 08/23/17 06:13 Dose: 5,000 unit Hydromorphone HCl (Dilaudid Injection -) 1 mg IVPB Q4H PRN PRN Reason: PAIN Meropenem 1 gm/ Dextrose 100 mls @ 200 mls/hr IVPB Q8H-IV SANTOSH PRN Reason: Protocol Last Admin: 08/23/17 11:28 Dose: 200 mls/hr Lactated Ringer's (Lactated Ringers Solution) 1,000 mls @ 75 mls/hr IV ASDIR [facility] Last Admin: 08/23/17 11:28 Dose: 75 mls/hr Potassium Chloride (Potassium Chloride 10 Meq Premix Ivpb -) 100 mls @ 100 mls/ hr IVPB Q60M [facility] Stop: 08/23/17 13:59 Last Admin: 08/23/17 12:03 Dose: 100 mls/hr Mupirocin (Bactroban Ointment (For Decolonization) -) 1 applic NS BID [facility] Stop: 08/27/17 21:59 Last Admin: 08/23/17 11:28 Dose: 1 applic Ondansetron HCl (Zofran Injection) 4 mg IVPB Q6H PRN PRN Reason: NAUSEA - Objective Vital Signs: Vital Signs Temperature 98.7 F 08/23/17 02:00 Pulse Rate 85 08/23/17 10:00 Respiratory Rate 20 08/23/17 10:00 Blood Pressure 146/79 08/23/17 10:00 O2 Sat by Pulse Oximetry (%) 97 08/22/17 20:11 Constitutional: Yes: Calm, Mild Distress HENT: Yes: Other (mouth ulcer --patient has developed and sore throat) Cardiovascular: Yes: Regular Rate and Rhythm Respiratory: Yes: Regular, CTA Bilaterally Gastrointestinal: Yes: Soft, Other (absent bowel sounds ng tube in place still drianing) Musculoskeletal: Yes: WNL Extremities: Yes: WNL Neurological: Yes: Alert, Oriented Psychiatric: Yes: Alert, Oriented Labs: CBC, BMP 08/23/17 05:15 08/23/17 05:15 INR, PTT INR 1.08 (0.82-1.09) 08/21/17 09:45 Assessment/Plan Problem List - Problems (1) Hernia of abdominal cavity, with obstruction Code(s): K46.0 - UNSP ABDOMINAL HERNIA WITH OBSTRUCTION, WITHOUT GANGRENE (2) Incarcerated hernia Code(s): K46.0 - UNSP ABDOMINAL HERNIA WITH OBSTRUCTION, WITHOUT GANGRENE (3) Pulmonary nodule Code(s): R91.1 - SOLITARY PULMONARY NODULE POD #1 SB resection with primary anastomosis due to strangulated hernia, infarcted gangrenous omentum LORE plan continue abx hydration ng suction monitor bp rest as per icu will start magic mouth wash and also nystatin swish and spit cc time 45 min
[2017-08-23 13:46] LABS: MCH 32.8 pg (25.7-33.7); MCHC 34.4 g/dl (32.0-35.9); MEAN CELL VOLUME 95.4 fl (80-96); MEAN PLT VOLUME 8.3 fl (7.5-11.1); PLATELET COUNT 166 K/MM3 (134-434); RDW 13.1 % (11.9-15.9); WHITE BLOOD COUNT 5.9 K/mm3 (4.0-10.0)
[2017-08-23] MEDS: MAG HYDROX/ALH/SMC/DPHA/LIDO 240 ML MOUTHWASH MM SCH ×2 (14:36→23:03)
[2017-08-23] MEDS: NYSTATIN 500,000 UNITS/5 ML SUSPENSION PO SCH ×3 (14:36→23:03)
--- NOTE | 2017-08-23 15:47 | PN ---
Progress Note, Physician Chief Complaint: Patient is out of bed in chair. - Current Medication List Current Medications: Active Medications Chlorhexidine Gluconate (Hibiclens For Decolonization -) 1 applic TP HS [facility] Last Admin: 08/22/17 21:03 Dose: 1 applic Heparin Sodium (Porcine) (Heparin -) 5,000 unit SQ TID [facility] Last Admin: 08/23/17 06:13 Dose: 5,000 unit Hydromorphone HCl (Dilaudid Injection -) 1 mg IVPB Q4H PRN PRN Reason: PAIN Meropenem 1 gm/ Dextrose 100 mls @ 200 mls/hr IVPB Q8H-IV [facility]ANTOSH PRN Reason: Protocol Last Admin: 08/23/17 11:28 Dose: 200 mls/hr Lactated Ringer's (Lactated Ringers Solution) 1,000 mls @ 75 mls/hr IV ASDIR [facility] Last Admin: 08/23/17 11:28 Dose: 75 mls/hr Lidocaine/Aluminum/Magnesium/Simeth (Magic Mouthwash *Sjr Formula* -) 5 ml MM Q6HPO [facility] Last Admin: 08/23/17 14:36 Dose: 5 ml Mupirocin (Bactroban Ointment (For Decolonization) -) 1 applic NS BID [facility] Stop: 08/27/17 21:59 Last Admin: 08/23/17 11:28 Dose: 1 applic Nystatin (Nystatin Oral Suspension -) 500,000 units PO Q6HPO [facility] Last Admin: 08/23/17 14:36 Dose: 500,000 units Ondansetron HCl (Zofran Injection) 4 mg IVPB Q6H PRN PRN Reason: NAUSEA - Objective Vital Signs: Vital Signs Temperature 99.8 F H 08/23/17 14:00 Pulse Rate 102 H 08/23/17 14:00 Respiratory Rate 24 08/23/17 14:00 Blood Pressure 126/78 08/23/17 14:00 O2 Sat by Pulse Oximetry (%) 95 08/23/17 14:33 Labs: CBC, BMP 08/23/17 13:25 08/23/17 05:15 INR, PTT INR 1.08 (0.82-1.09) 08/21/17 09:45 Problem List - Problems (1) Small intestinal gangrene Code(s): K55.029 - ACUTE INFARCTION OF SMALL INTESTINE, EXTENT UNSPECIFIED (2) Omental infarction Code(s): K55.069 - ACUTE INFARCTION OF INTESTINE, PART AND EXTENT UNSPECIFIED (3) Elevated BUN Code(s): R79.9 - ABNORMAL FINDING OF BLOOD CHEMISTRY, UNSPECIFIED (4) Elevated serum creatinine Code(s): R79.89 - OTHER SPECIFIED ABNORMAL FINDINGS OF BLOOD CHEMISTRY Assessment/Plan Urine ouput has improved. Wbc is normal Hematocrit is stable around 25. Wound is clean. NG drainage 400ml. Plan : D/C baptiste catheter, maintain NG, Follow hematocrit and platelets.
[2017-08-23 17:39] LABS: BASOPHIL 0.2 % (0-2.0); EOSINOPHIL 0.3 % (0-4.5); MCH 33.1 pg (25.7-33.7); MEAN CELL VOLUME 94.6 fl (80-96); MEAN PLT VOLUME 8.7 fl (7.5-11.1); PLATELET COUNT 175 K/MM3 (134-434); WHITE BLOOD COUNT 5.4 K/mm3 (4.0-10.0)
[2017-08-23 18:13] LABS: MAGNESIUM 2.3 mg/dL (1.8-2.4); PHOSPHOROUS 1.4 mg/dL (2.5-4.9)
[2017-08-23] MEDS: CHLORHEXIDINE GLUCONATE 4% CLEANSER FOR DECOLONIZATION TP SCH (21:06)
[2017-08-24] MEDS: MEROPENEM 1 GM in DEXTROSE 5%-WATER - 100 ML IVPB SCH ×3 (02:43→18:16)
[2017-08-24] MEDS: NYSTATIN 500,000 UNITS/5 ML SUSPENSION PO SCH ×3 (05:58→18:16)
[2017-08-24] MEDS: MAG HYDROX/ALH/SMC/DPHA/LIDO 240 ML MOUTHWASH MM SCH ×3 (05:59→18:15)
[2017-08-24] MEDS: HEPARIN NA (PORCINE) 5,000 UNITS/ML 1ML VIAL SQ SCH ×3 (05:59→21:18)
[2017-08-24 06:08] LABS: BASOPHIL 0.4 % (0-2.0); MCH 33.4 pg (25.7-33.7); MCHC 35.3 g/dl (32.0-35.9); MEAN CELL VOLUME 94.9 fl (80-96); MEAN PLT VOLUME 8.8 fl (7.5-11.1); NEUTROPHILS 74.2 % (42.8-82.8); PLATELET COUNT 176 K/MM3 (134-434); WHITE BLOOD COUNT 3.9 K/mm3 (4.0-10.0)
[2017-08-24 06:26] LABS: ALBUMIN 2.5 g/dl (3.4-5.0); ANION GAP 6 (8-16); CALCIUM 8.9 mg/dL (8.5-10.1); CO2 34 mmol/L (21-32); CREATININE 0.8 mg/dL (0.7-1.3); GLUCOSE,RANDOM 102 mg/dL (74-106); MAGNESIUM 2.4 mg/dL (1.8-2.4); PHOSPHOROUS 1.7 mg/dL (2.5-4.9); SGOT/AST 29 U/L (15-37); SGPT/ALT 40 U/L (12-78)
[2017-08-24 06:28] LABS: ALK PHOS 54 U/L (45-117); BILIRUBIN,TOTAL 0.8 mg/dL (0.2-1.0)
--- NOTE | 2017-08-24 07:36 | PN ---
Physical Exam: SUBJECTIVE: Patient seen and examined OBJECTIVE: Vital Signs Period Temp Pulse Resp BP Sys/Jacome Pulse Ox Last 24 Hr 98.4 F-99.8 F 85-108 16-24 119-167/72-86 92-95 GENERAL: The patient is awake, alert, and fully oriented, in no acute distress. HEAD: Normal with no signs of trauma. EYES: PERRL, extraocular movements intact, sclera anicteric, conjunctiva clear. No ptosis. ENT: Ears normal, nares patent, oropharynx clear without exudates, moist mucous membranes. NECK: Trachea midline, full range of motion, supple. LUNGS: Breath sounds equal, clear to auscultation bilaterally, no wheezes, no crackles, no accessory muscle use. HEART: Regular rate and rhythm, S1, S2 without murmur, rub or gallop. ABDOMEN: Soft, nontender, nondistended, normoactive bowel sounds, no guarding, no rebound, no hepatosplenomegaly, no masses. EXTREMITIES: 2+ pulses, warm, well-perfused, no edema. NEUROLOGICAL: Cranial nerves II through XII grossly intact. Normal speech, gait not observed. PSYCH: Normal mood, normal affect. SKIN: Warm, dry, normal turgor, no rashes or lesions noted Laboratory Results - last 24 hr 08/23/17 08/23/17 08/23/17 13:25 17:20 17:20 WBC 5.9 D 5.4 RBC 2.76 L 2.64 L Hgb 9.0 L 8.8 L Hct 26.3 L 25.0 L MCV 95.4 94.6 MCH 32.8 33.1 MCHC 34.4 35.0 RDW 13.1 13.0 Plt Count 166 175 MPV 8.3 8.7 Neutrophils % 77.0 Lymphocytes % 11.4 Monocytes % 11.1 H Eosinophils % 0.3 D Basophils % 0.2 Sodium Potassium Chloride Carbon Dioxide Anion Gap BUN Creatinine Creat Clearance w eGFR Random Glucose Calcium Phosphorus 1.4 L Magnesium 2.3 Total Bilirubin AST ALT Alkaline Phosphatase Total Protein Albumin 08/24/17 08/24/17 05:15 05:15 WBC 3.9 L RBC 2.49 L Hgb 8.3 L Hct 23.6 L MCV 94.9 MCH 33.4 MCHC 35.3 RDW 13.0 Plt Count 176 MPV 8.8 Neutrophils % 74.2 Lymphocytes % 14.6 D Monocytes % 9.8 Eosinophils % 1.0 D Basophils % 0.4 Sodium 144 Potassium 3.5 Chloride 104 Carbon Dioxide 34 H Anion Gap 6 L BUN 24 H Creatinine 0.8 D Creat Clearance w eGFR > 60 Random Glucose 102 Calcium 8.9 Phosphorus 1.7 L D Magnesium 2.4 Total Bilirubin 0.8 AST 29 ALT 40 D Alkaline Phosphatase 54 Total Protein 5.0 L Albumin 2.5 L Active Medications Generic Name Dose Route Start Last Admin Trade Name Freq PRN Reason Stop Dose Admin Chlorhexidine Gluconate 1 applic 08/22/17 22:00 08/23/17 21:06 Hibiclens For Decolonization - TP 1 applic HS [facility] Administration Heparin Sodium (Porcine) 5,000 unit 08/22/17 14:00 08/24/17 05:59 Heparin - SQ 5,000 unit TID [facility] Administration Hydromorphone HCl 1 mg 08/23/17 09:11 Dilaudid Injection - IVPB Q4H PRN PAIN Meropenem 1 gm/ Dextrose 100 mls @ 200 mls/hr 08/22/17 14:15 08/24/17 02:43 IVPB 200 mls/hr Q8H-IV [facility] Administration Protocol Lactated Ringer's 1,000 mls @ 75 mls/hr 08/23/17 09:51 08/23/17 11:28 Lactated Ringers Solution IV 75 mls/hr ASDIR [facility] Administration Lidocaine/Aluminum/Magnesium/Simeth 5 ml 08/23/17 18:00 08/24/17 05:59 Magic Mouthwash *Sjr Formula* - MM 5 ml Q6HPO [facility] Administration Mupirocin 1 applic 08/22/17 22:00 08/23/17 21:06 Bactroban Ointment (For Decolonization) - NS 08/27/17 21:59 1 applic BID [facility] Administration Nystatin 500,000 units 08/23/17 18:00 08/24/17 05:58 Nystatin Oral Suspension - PO 500,000 units Q6HPO [facility] Administration Ondansetron HCl 4 mg 08/21/17 20:45 Zofran Injection IVPB Q6H PRN NAUSEA Potassium Chloride 20 meq 08/24/17 07:34 Potassium Chloride 20 Meq Premix Ivpb - IVPB 08/24/17 07:35 ONCE ONE ASSESSMENT/PLAN:
[2017-08-24] MEDS ORDERED: POTASSIUM CHLORIDE 20 MEQ PREMIX IVPB 100 ML IVPB ONE (08:30)
[2017-08-24] MEDS ORDERED: PT OWN MED DRAWER 7, Y5N ONE ×3 (08:49→22:48)
[2017-08-24] MEDS: MUPIROCIN 2% TOPICAL OINTMENT FOR DECOLONIZATION NS SCH ×2 (09:40→21:14)
[2017-08-24] MEDS: LACTATED RINGERS SOLUTION 1,000 ML IV SCH ×2 (09:47→09:51)
--- NOTE | 2017-08-24 10:15 | PN ---
Progress Note (short form) - Note Progress Note: PULMONARY/CCM Pt seen and examined in the ICU. Pain controlled. No nausea or vomiting. No flatus or BM. No fevers or chills. Last Vital Signs Temp Pulse Resp BP Pulse Ox 98.2 F 96 H 18 172/86 96 08/24/17 10:00 08/24/17 10:00 08/24/17 10:00 08/24/17 10:00 08/24/17 08:00 Intake & Output 08/21/17 08/22/17 08/23/17 08/24/17 23:59 23:59 23:59 23:59 Intake Total 4000 3950 3690 825 Output Total 400 1600 2900 1600 Balance 3600 2350 790 -775 Weight 187 lb 198 lb 6.656 oz 198 lb 6.656 oz Gen: NAD at rest Heart: RRR Lung: decreased breath sounds at the bases Abd: abdominal binder in place decreased bowel sounds Ext: no edema CBC, BMP 08/24/17 05:15 08/24/17 05:15 Active Medications Chlorhexidine Gluconate (Hibiclens For Decolonization -) 1 applic TP HS [facility] Last Admin: 08/23/17 21:06 Dose: 1 applic Heparin Sodium (Porcine) (Heparin -) 5,000 unit SQ TID [facility] Last Admin: 08/24/17 05:59 Dose: 5,000 unit Hydromorphone HCl (Dilaudid Injection -) 1 mg IVPB Q4H PRN PRN Reason: PAIN Meropenem 1 gm/ Dextrose 100 mls @ 200 mls/hr IVPB Q8H-IV [facility] PRN Reason: Protocol Last Admin: 08/24/17 09:39 Dose: 200 mls/hr Lactated Ringer's (Lactated Ringers Solution) 1,000 mls @ 75 mls/hr IV ASDIR [facility] Last Admin: 08/24/17 09:47 Dose: 75 mls/hr Lidocaine/Aluminum/Magnesium/Simeth (Magic Mouthwash *Sjr Formula* -) 5 ml MM Q6HPO [facility] Last Admin: 08/24/17 05:59 Dose: 5 ml Mupirocin (Bactroban Ointment (For Decolonization) -) 1 applic NS BID [facility] Stop: 08/27/17 21:59 Last Admin: 08/24/17 09:40 Dose: 1 applic Nystatin (Nystatin Oral Suspension -) 500,000 units PO Q6HPO [facility] Last Admin: 08/24/17 05:58 Dose: 500,000 units Ondansetron HCl (Zofran Injection) 4 mg IVPB Q6H PRN PRN Reason: NAUSEA A/P Strangulated Ventral Hernia s/p exploratory laparotomy/small bowel resection/primary anastamosis Anemia Acute Kidney Injury improving HTN - on empiric antibiotics - pain control - incentive spirometry - await return of bowel function - IVF - OOB, ambulate - DVT prophylaxis - transfer to surgical floor when ok with surgery
--- NOTE | 2017-08-24 12:33 | PN ---
Progress Note, Physician Chief Complaint: Surgery: Patient has no complaints. Feels some bowel activity in the abdomen . has not passed flatus , or had a bowel movement. - Current Medication List Current Medications: Active Medications Chlorhexidine Gluconate (Hibiclens For Decolonization -) 1 applic TP HS [facility] Last Admin: 08/23/17 21:06 Dose: 1 applic Heparin Sodium (Porcine) (Heparin -) 5,000 unit SQ TID [facility] Last Admin: 08/24/17 05:59 Dose: 5,000 unit Hydromorphone HCl (Dilaudid Injection -) 1 mg IVPB Q4H PRN PRN Reason: PAIN Meropenem 1 gm/ Dextrose 100 mls @ 200 mls/hr IVPB Q8H-IV [facility] PRN Reason: Protocol Last Admin: 08/24/17 09:39 Dose: 200 mls/hr Lactated Ringer's (Lactated Ringers Solution) 1,000 mls @ 75 mls/hr IV ASDIR [facility] Last Admin: 08/24/17 09:51 Dose: Not Given Lidocaine/Aluminum/Magnesium/Simeth (Magic Mouthwash *Sjr Formula* -) 5 ml MM Q6HPO [facility] Last Admin: 08/24/17 05:59 Dose: 5 ml Mupirocin (Bactroban Ointment (For Decolonization) -) 1 applic NS BID [facility] Stop: 08/27/17 21:59 Last Admin: 08/24/17 09:40 Dose: 1 applic Nystatin (Nystatin Oral Suspension -) 500,000 units PO Q6HPO [facility] Last Admin: 08/24/17 05:58 Dose: 500,000 units Ondansetron HCl (Zofran Injection) 4 mg IVPB Q6H PRN PRN Reason: NAUSEA - Objective Vital Signs: Vital Signs Temperature 98.2 F 08/24/17 10:00 Pulse Rate 91 H 08/24/17 11:15 Respiratory Rate 18 08/24/17 10:00 Blood Pressure 172/86 08/24/17 10:00 O2 Sat by Pulse Oximetry (%) 96 08/24/17 11:15 Labs: CBC, BMP 08/24/17 05:15 08/24/17 05:15 INR, PTT INR 1.08 (0.82-1.09) 08/21/17 09:45 Problem List - Problems (1) Small intestinal gangrene Code(s): K55.029 - ACUTE INFARCTION OF SMALL INTESTINE, EXTENT UNSPECIFIED (2) Omental infarction Code(s): K55.069 - ACUTE INFARCTION OF INTESTINE, PART AND EXTENT UNSPECIFIED (3) Elevated BUN Code(s): R79.9 - ABNORMAL FINDING OF BLOOD CHEMISTRY, UNSPECIFIED (4) Elevated serum creatinine Code(s): R79.89 - OTHER SPECIFIED ABNORMAL FINDINGS OF BLOOD CHEMISTRY Assessment/Plan Post op day #2. Urine ouput has improved. Afebrile. Wbc is normal Hematocrit is stable around 23. Wound is clean. No drainage , no sign of infection.. NG drainage 1200ml in 24 hours. Patient is swallowing a lot of ice chips. Plan : maintain NG, Follow hematocrit . Continue antibiotics, Maintain ng tube to suction.
--- NOTE | 2017-08-24 14:25 | PN ---
Progress Note, Physician History of Present Illness: patient doing well mouth and throat pain much better - Current Medication List Current Medications: Active Medications Chlorhexidine Gluconate (Hibiclens For Decolonization -) 1 applic TP HS [facility] Last Admin: 08/23/17 21:06 Dose: 1 applic Heparin Sodium (Porcine) (Heparin -) 5,000 unit SQ TID [facility] Last Admin: 08/24/17 05:59 Dose: 5,000 unit Hydromorphone HCl (Dilaudid Injection -) 1 mg IVPB Q4H PRN PRN Reason: PAIN Meropenem 1 gm/ Dextrose 100 mls @ 200 mls/hr IVPB Q8H-IV [facility] PRN Reason: Protocol Last Admin: 08/24/17 09:39 Dose: 200 mls/hr Lactated Ringer's (Lactated Ringers Solution) 1,000 mls @ 75 mls/hr IV ASDIR [facility] Last Admin: 08/24/17 09:51 Dose: Not Given Lidocaine/Aluminum/Magnesium/Simeth (Magic Mouthwash *Sjr Formula* -) 5 ml MM Q6HPO [facility] Last Admin: 08/24/17 12:00 Dose: Not Given Mupirocin (Bactroban Ointment (For Decolonization) -) 1 applic NS BID [facility] Stop: 08/27/17 21:59 Last Admin: 08/24/17 09:40 Dose: 1 applic Nystatin (Nystatin Oral Suspension -) 500,000 units PO Q6HPO [facility] Last Admin: 08/24/17 12:00 Dose: Not Given Ondansetron HCl (Zofran Injection) 4 mg IVPB Q6H PRN PRN Reason: NAUSEA - Objective Vital Signs: Vital Signs Temperature 97.9 F 08/24/17 12:00 Pulse Rate 90 08/24/17 12:00 Respiratory Rate 20 08/24/17 12:00 Blood Pressure 147/86 08/24/17 12:00 O2 Sat by Pulse Oximetry (%) 96 08/24/17 11:15 Constitutional: Yes: No Distress, Calm HENT: Yes: Atraumatic Cardiovascular: Yes: Regular Rate and Rhythm Respiratory: Yes: Regular, CTA Bilaterally Gastrointestinal: Yes: Soft, Other (ng tube in place) Musculoskeletal: Yes: WNL Extremities: Yes: WNL Neurological: Yes: Alert, Oriented Psychiatric: Yes: Alert, Oriented Labs: CBC, BMP 08/24/17 05:15 08/24/17 05:15 INR, PTT INR 1.08 (0.82-1.09) 08/21/17 09:45 Assessment/Plan Problem List - Problems (1) Hernia of abdominal cavity, with obstruction Code(s): K46.0 - UNSP ABDOMINAL HERNIA WITH OBSTRUCTION, WITHOUT GANGRENE (2) Incarcerated hernia Code(s): K46.0 - UNSP ABDOMINAL HERNIA WITH OBSTRUCTION, WITHOUT GANGRENE (3) Pulmonary nodule Code(s): R91.1 - SOLITARY PULMONARY NODULE POD #1 SB resection with primary anastomosis due to strangulated hernia, infarcted gangrenous omentum LORE plan continue abx hydration ng suction continue mouth wash rest as per surgery cc time 40 min
[2017-08-24] MEDS ORDERED: POTASSIUM PHOSPHATE 15 MM in DEXTROSE 5%-WATER - 250 ML IVPB ONE (18:33)
--- NOTE | 2017-08-24 18:37 | PN ---
Progress Note (short form) - Note Progress Note: Subjective: minimal abd pain , no N/V, no flatus or BM yet Objective: Vital Signs: Last Vital Signs Temp Pulse Resp BP Pulse Ox 98.0 F 85 20 167/88 96 08/24/17 18:00 08/24/17 18:00 08/24/17 18:00 08/24/17 18:00 08/24/17 11:15 Laboratory Results - last 24 hr 08/24/17 08/24/17 05:15 05:15 WBC 3.9 L RBC 2.49 L Hgb 8.3 L Hct 23.6 L MCV 94.9 MCH 33.4 MCHC 35.3 RDW 13.0 Plt Count 176 MPV 8.8 Neutrophils % 74.2 Lymphocytes % 14.6 D Monocytes % 9.8 Eosinophils % 1.0 D Basophils % 0.4 Sodium 144 Potassium 3.5 Chloride 104 Carbon Dioxide 34 H Anion Gap 6 L BUN 24 H Creatinine 0.8 D Creat Clearance w eGFR > 60 Random Glucose 102 Calcium 8.9 Phosphorus 1.7 L D Magnesium 2.4 Total Bilirubin 0.8 AST 29 ALT 40 D Alkaline Phosphatase 54 Total Protein 5.0 L Albumin 2.5 L Microbiology 08/21/17 21:05 Blood Culture - Preliminary Blood - Peripheral Venous NO GROWTH OBTAINED AFTER 48 HOURS, INCUBATION TO CONTINUE FOR 3 DAYS. 08/21/17 21:10 Blood Culture - Preliminary Blood - Peripheral Venous NO GROWTH OBTAINED AFTER 48 HOURS, INCUBATION TO CONTINUE FOR 3 DAYS. Physical Exam: NAD , NGT in , AAOx3 CV : RRR Lungs : CTAB Ext : no edema ABD: soft, TTP in all quadrants . mid line surgical dressing, removed . has a mid line clear sugical wound with ford , NL BS ASSESSMENT AND PLAN: 62 y/o man with h/o abd wall hernia after laparotomy, h/o HTN who presented with abd pain and was found to have strangulated hernia 1- Strangulated ventral hernia: s/p small bowel resection and primary anastomosis, POD3. Bowel sounds have returned, but no flatus or BM. stable HB - Cont IVF - cont meropenem - blood cx neg to date - cont PRN dilaudid - replete electrolytes 2- HTN: - start norvasc while here - cont to hold lisinopril, adn HCTZ ( home meds ) , due to recent recovery of his LORE 3- Acute blood loss anemia : due to surgical loss. - No need fro transusion now , as he has no tachycardia, or hypotension or other Sx. - monitor . 4- LORE: likely prerenal, resolved - cont IVF 5-Transaminitis : resolved 6- DVT px : SCDS, heparin WIll transfer to [facility] Surg probably tomorrow Visit type - Emergency Visit Emergency Visit: Yes ED Registration Date: 08/21/17 Care time: The patient presented to the Emergency Department on the above date and was hospitalized for further evaluation of their emergent condition. - New Patient This patient is new to me today: No - Critical Care Critical Care patient: No
[2017-08-24] MEDS ORDERED: amLODIPine BESYLATE 5 MG TABLET (FP) PO SCH (18:45)
[2017-08-24] MEDS ORDERED: LABETALOL HCL 5 MG/1 ML (100MG/20 ML VIAL) IVPUSH PRN (19:16)
[2017-08-24] MEDS: CHLORHEXIDINE GLUCONATE 4% CLEANSER FOR DECOLONIZATION TP SCH (21:18)
[2017-08-25] MEDS: NYSTATIN 500,000 UNITS/5 ML SUSPENSION PO SCH ×4 (00:30→17:20)
[2017-08-25] MEDS: MAG HYDROX/ALH/SMC/DPHA/LIDO 240 ML MOUTHWASH MM SCH ×4 (00:30→17:20)
[2017-08-25] MEDS: MEROPENEM 1 GM in DEXTROSE 5%-WATER - 100 ML IVPB SCH ×3 (02:26→17:22)
[2017-08-25 06:04] LABS: BASOPHIL 0.3 % (0-2.0); EOSINOPHIL 2.3 % (0-4.5); MCH 32.7 pg (25.7-33.7); MCHC 34.4 g/dl (32.0-35.9); MEAN CELL VOLUME 95.1 fl (80-96); MEAN PLT VOLUME 7.9 fl (7.5-11.1); NEUTROPHILS 72.6 % (42.8-82.8); PLATELET COUNT 204 K/MM3 (134-434); RDW 12.7 % (11.9-15.9); WHITE BLOOD COUNT 3.8 K/mm3 (4.0-10.0)
[2017-08-25] MEDS: HEPARIN NA (PORCINE) 5,000 UNITS/ML 1ML VIAL SQ SCH ×3 (06:35→21:30)
[2017-08-25 06:37] LABS: ANION GAP 9 (8-16); CALCIUM 8.5 mg/dL (8.5-10.1); CO2 33 mmol/L (21-32); CREATININE 0.7 mg/dL (0.7-1.3); GLUCOSE,RANDOM 92 mg/dL (74-106); MAGNESIUM 2.4 mg/dL (1.8-2.4)
[2017-08-25] MEDS: LACTATED RINGERS SOLUTION 1,000 ML IV SCH ×2 (08:00→09:51)
--- NOTE | 2017-08-25 09:06 | PN ---
Physical Exam: 24H Events: Continues to be NPO with ice chips only, NGT high bilious output overnight, + Flatus, no BMs. SUBJECTIVE: Patient seen and examined in ICU. Minimal abdominal pain. No fever, chills, nausea, or vomitting. OBJECTIVE: Vital Signs Period Temp Pulse Resp BP Sys/Jacome Pulse Ox Last 24 Hr 97.9 F-99.6 F 70-100 17-22 130-172/65-96 95-96 Intake & Output 08/22/17 08/23/17 08/24/17 08/25/17 23:59 23:59 23:59 23:59 Intake Total 3950 3690 1975 1250 Output Total 1600 2900 3150 700 Balance 2350 790 -1175 550 Weight 90 kg 90 kg 88.11 kg GENERAL: The patient is awake, alert, and fully oriented, nad EYES: sclera anicteric, conjunctiva clear ENT: NGT, moist mucous membranes LUNGS: CTAB, no wheezes, rhonchi or rales HEART: rrr, normal s1/s2, no murmur, rub or gallop ABDOMEN: soft, diffuse mild TTP, intact abdominal dressing/binder EXTREMITIES: 2+ pulses, warm, well-perfused, no edema Laboratory Results - last 24 hr 08/25/17 08/25/17 05:00 05:00 WBC 3.8 L RBC 2.65 L Hgb 8.7 L Hct 25.2 L MCV 95.1 MCH 32.7 MCHC 34.4 RDW 12.7 Plt Count 204 MPV 7.9 D Neutrophils % 72.6 Lymphocytes % 13.4 Monocytes % 11.4 H Eosinophils % 2.3 D Basophils % 0.3 Sodium 146 H Potassium 3.4 L Chloride 104 Carbon Dioxide 33 H Anion Gap 9 BUN 21 H Creatinine 0.7 Random Glucose 92 Calcium 8.5 Phosphorus 3.0 D Magnesium 2.4 Active Medications Chlorhexidine Gluconate (Hibiclens For Decolonization -) 1 applic TP HS [facility] Last Admin: 08/24/17 21:18 Dose: 1 applic Heparin Sodium (Porcine) (Heparin -) 5,000 unit SQ TID [facility] Last Admin: 08/25/17 06:35 Dose: 5,000 unit Hydromorphone HCl (Dilaudid Injection -) 1 mg IVPB Q4H PRN PRN Reason: PAIN Meropenem 1 gm/ Dextrose 100 mls @ 200 mls/hr IVPB Q8H-IV [facility] PRN Reason: Protocol Last Admin: 08/25/17 02:26 Dose: 200 mls/hr Lactated Ringer's (Lactated Ringers Solution) 1,000 mls @ 75 mls/hr IV ASDIR [facility] Last Admin: 08/25/17 08:00 Dose: 75 mls/hr Labetalol HCl (Normodyne Injection -) 10 mg IVPUSH Q6H PRN PRN Reason: HYPERTENSION Lidocaine/Aluminum/Magnesium/Simeth (Magic Mouthwash *Sjr Formula* -) 5 ml MM Q6HPO [facility] Last Admin: 08/25/17 06:22 Dose: 5 ml Mupirocin (Bactroban Ointment (For Decolonization) -) 1 applic NS BID [facility] Stop: 08/27/17 21:59 Last Admin: 08/24/17 21:14 Dose: 1 applic Nystatin (Nystatin Oral Suspension -) 500,000 units PO Q6HPO [facility] Last Admin: 08/25/17 06:37 Dose: 500,000 units Ondansetron HCl (Zofran Injection) 4 mg IVPB Q6H PRN PRN Reason: NAUSEA ASSESSMENT/PLAN: 62yo man who is POD4 s/p ex-lap and small bowel resection and anastomosis for strangulated ventral hernia. He continues to be NPO with bilious drainage via NGT. Pre-renal LORE resolving with downtrending creatinine. #GI -Bowel rest -Advance diet per surgery -Monitor NGT output -Zofran for nausea #Pulm -Incentive spirometry #ID -Emperic abx per ID (meropenem) #HTN -Hold home meds -Labetalol 10mg IV q6h prn #Neuro -hydromorphone 1 mg IVPB Q4H PRN #Renal -Continue IVF #FEN -LR @ 75cc/hr -Repleting K with 20mEq KCl IVPB -NPO, advance per surgery #DVT ppx -SCD's -Heparin 5000U sq TID #GI ppx - not indicated #Dispo: can transfer to floors pending surgery approval FULL code d/w Dr. Jasen Villatoro MD PGY-1 Visit type - Emergency Visit Emergency Visit: No - New Patient This patient is new to ri today: Yes Date on this admission: 08/25/17 - Critical Care Critical Care patient: Yes Total Critical Care Time (in minutes): 35 Critical Care Statement: The care of this patient involved high complexity decision making to prevent further life threatening deterioration of the patient 's condition and/or to evaluate & treat vital organ system(s) failure or risk of failure.
[2017-08-25] MEDS: MUPIROCIN 2% TOPICAL OINTMENT FOR DECOLONIZATION NS SCH ×2 (09:46→21:30)
[2017-08-25] MEDS ORDERED: POTASSIUM CHLORIDE 20 MEQ PREMIX IVPB 100 ML IVPB ONE (12:00)
[2017-08-25] MEDS: KCL 10 MEQ IVPB 100 ML IVPB SCH ×2 (12:20→13:20)
[2017-08-25] MEDS ORDERED: PT OWN MED DRAWER 7, Y5N ONE (12:30)
--- NOTE | 2017-08-25 13:12 | PN ---
Teaching Attending Note Name of Resident: Tracey Villatoro ATTENDING PHYSICIAN STATEMENT I saw and evaluated the patient. I reviewed the resident's note and discussed the case with the resident. I agree with the resident's findings and plan as documented. SUBJECTIVE: Pt seen and examined in the ICU. +flatus, no BM. No fevers or chills. High output from NGT. OBJECTIVE: Last Vital Signs Temp Pulse Resp BP Pulse Ox 99.0 F 86 20 173/86 94 L 08/25/17 12:00 08/25/17 12:00 08/25/17 12:00 08/25/17 12:00 08/25/17 10:50 Intake & Output 08/22/17 08/23/17 08/24/17 08/25/17 23:59 23:59 23:59 23:59 Intake Total 3950 3690 1975 1250 Output Total 1600 2900 3150 700 Balance 2350 790 -1175 550 Weight 198 lb 6.656 oz 198 lb 6.656 oz 194 lb 4 oz Gen: NAD at rest Heart: RRR Lung: decreased breath sounds at the bases Abd: soft, nontender, + bowel sounds Ext: no edema CBC, BMP 08/25/17 05:00 08/25/17 05:00 Active Medications Chlorhexidine Gluconate (Hibiclens For Decolonization -) 1 applic TP HS [facility] Last Admin: 08/24/17 21:18 Dose: 1 applic Heparin Sodium (Porcine) (Heparin -) 5,000 unit SQ TID [facility] Last Admin: 08/25/17 06:35 Dose: 5,000 unit Hydromorphone HCl (Dilaudid Injection -) 1 mg IVPB Q4H PRN PRN Reason: PAIN Meropenem 1 gm/ Dextrose 100 mls @ 200 mls/hr IVPB Q8H-IV [facility] PRN Reason: Protocol Last Admin: 08/25/17 09:44 Dose: 200 mls/hr Lactated Ringer's (Lactated Ringers Solution) 1,000 mls @ 75 mls/hr IV ASDIR [facility] Last Admin: 08/25/17 09:51 Dose: Not Given Potassium Chloride (Potassium Chloride 10 Meq Premix Ivpb -) 100 mls @ 100 mls/ hr IVPB Q60M [facility] Stop: 08/25/17 14:44 Last Admin: 08/25/17 12:20 Dose: 100 mls/hr Labetalol HCl (Normodyne Injection -) 10 mg IVPUSH Q6H PRN PRN Reason: HYPERTENSION Last Admin: 08/25/17 12:33 Dose: 10 mg Lidocaine/Aluminum/Magnesium/Simeth (Magic Mouthwash *Sjr Formula* -) 5 ml MM Q6HPO [facility] Last Admin: 08/25/17 12:14 Dose: 5 ml Mupirocin (Bactroban Ointment (For Decolonization) -) 1 applic NS BID [facility] Stop: 08/27/17 21:59 Last Admin: 08/25/17 09:46 Dose: 1 applic Nystatin (Nystatin Oral Suspension -) 500,000 units PO Q6HPO [facility] Last Admin: 08/25/17 12:13 Dose: 500,000 units Ondansetron HCl (Zofran Injection) 4 mg IVPB Q6H PRN PRN Reason: NAUSEA ASSESSMENT AND PLAN: Strangulated Ventral Hernia s/p exploratory laparotomy/small bowel resection/primary anastamosis Anemia Acute Kidney Injury improving HTN - on empiric antibiotics - pain control - incentive spirometry - await return of bowel function - IVF - OOB, ambulate - DVT prophylaxis - transfer to surgical floor when ok with surgery
--- NOTE | 2017-08-25 14:57 | PN ---
Progress Note, Physician History of Present Illness: patient with no complaints still with alonso colored ng tube secretions color has darkened from yesterday patient with temp is 99 no other complaints - Current Medication List Current Medications: Active Medications Chlorhexidine Gluconate (Hibiclens For Decolonization -) 1 applic TP HS [facility] Last Admin: 08/24/17 21:18 Dose: 1 applic Heparin Sodium (Porcine) (Heparin -) 5,000 unit SQ TID [facility] Last Admin: 08/25/17 14:43 Dose: 5,000 unit Hydromorphone HCl (Dilaudid Injection -) 1 mg IVPB Q4H PRN PRN Reason: PAIN Meropenem 1 gm/ Dextrose 100 mls @ 200 mls/hr IVPB Q8H-IV [facility] PRN Reason: Protocol Last Admin: 08/25/17 09:44 Dose: 200 mls/hr Lactated Ringer's (Lactated Ringers Solution) 1,000 mls @ 75 mls/hr IV ASDIR [facility] Last Admin: 08/25/17 09:51 Dose: Not Given Labetalol HCl (Normodyne Injection -) 10 mg IVPUSH Q6H PRN PRN Reason: HYPERTENSION Last Admin: 08/25/17 12:33 Dose: 10 mg Lidocaine/Aluminum/Magnesium/Simeth (Magic Mouthwash *Sjr Formula* -) 5 ml MM Q6HPO [facility] Last Admin: 08/25/17 12:14 Dose: 5 ml Mupirocin (Bactroban Ointment (For Decolonization) -) 1 applic NS BID [facility] Stop: 08/27/17 21:59 Last Admin: 08/25/17 09:46 Dose: 1 applic Nystatin (Nystatin Oral Suspension -) 500,000 units PO Q6HPO [facility] Last Admin: 08/25/17 12:13 Dose: 500,000 units Ondansetron HCl (Zofran Injection) 4 mg IVPB Q6H PRN PRN Reason: NAUSEA - Objective Vital Signs: Vital Signs Temperature 98.2 F 08/25/17 14:00 Pulse Rate 73 08/25/17 14:00 Respiratory Rate 20 08/25/17 14:00 Blood Pressure 146/79 08/25/17 14:00 O2 Sat by Pulse Oximetry (%) 94 L 08/25/17 10:50 Constitutional: Yes: No Distress, Calm Cardiovascular: Yes: Regular Rate and Rhythm Respiratory: Yes: Regular, CTA Bilaterally Gastrointestinal: Yes: Soft, Other (ng tube with slightly bloody secretions) Musculoskeletal: Yes: WNL Extremities: Yes: WNL Neurological: Yes: Alert, Oriented Psychiatric: Yes: Alert, Oriented Labs: CBC, BMP 08/25/17 05:00 08/25/17 05:00 INR, PTT INR 1.08 (0.82-1.09) 08/21/17 09:45 Assessment/Plan Problem List - Problems (1) Hernia of abdominal cavity, with obstruction Code(s): K46.0 - UNSP ABDOMINAL HERNIA WITH OBSTRUCTION, WITHOUT GANGRENE (2) Incarcerated hernia Code(s): K46.0 - UNSP ABDOMINAL HERNIA WITH OBSTRUCTION, WITHOUT GANGRENE (3) Pulmonary nodule Code(s): R91.1 - SOLITARY PULMONARY NODULE SB resection with primary anastomosis due to strangulated hernia, infarcted gangrenous omentum LORE plan continue empiric abx hydration ng suction continue mouth wash rest as per surgery will see the temp curve might stop abx tomorrow cc time 40 min
--- NOTE | 2017-08-25 15:24 | PATH ---
Surgical Pathology Report Patient Name: MARY BETH MYERS [facility]. Rec. #: [id number] /Age/Gender: 1955 (Age: 62) / M Account: [id number] Location: ICU [facility] [employer] Taken: 08/22/2017 Received: 08/22/2017 Reported: 08/25/2017 Physicians: Candice Orlando M.D. Specimen(s) Received A: SMALL BOWEL B: HERNIATED OMENTUM Clinical History Abdominal hernia with obstruction Final Diagnosis A. SMALL BOWEL, SEGMENTAL RESECTION: PORTION OF SMALL BOWEL WITH TRANSMURAL HEMORRHAGE AND ISCHEMIA. PROXIMAL AND DISTAL MARGINS OF RESECTION FREE OF ISCHEMIC CHANGES.: B. SOFT TISSUE, ABDOMEN, EXCISION: BENIGN ADIPOSE TISSUE CONSISTENT WITH PORTIONS OF OMENTUM, WITH VASCULAR CONGESTION. FIBROMEMBRANOUS TISSUE WITH MESOTHELIAL LINING CONSISTENT WITH PORTION OF HERNIA SAC PRESENT. Electronically Signed Portillo Randhawa M.D. Gross Description A. Received in formalin labeled "small bowel," is a 30 cm in length portion of small bowel with 2 stapled mucosal margins and moderate attached fat. The serosa is olea purple and dusky. The mucosa is hart with focally flattened folds. No mucosal masses are identified. Sectioning reveals multiple foci of submucosal hemorrhage. Separately received within the same container is a 5.5 x 1.5 x 1.5 cm additional portion of unremarkable bowel with a staple line. [employer] sections are submitted in 6 cassettes as follows: 9-9-[id number] stapled mucosal margins; 1-0-wvfrwtveghvxfr small bowel; 6-section from separately received portion of small bowel. B. Received in formalin labeled "herniated omentum," is a 7.5 x 7.5 x 2.2 cm aggregate of yellow, lobulated adipose tissue. Sectioning reveals a focus of hemorrhage. [employer] sections are submitted in one cassette. /08/22/2017 saudi08/22/2017
--- NOTE | 2017-08-25 15:56 | PN ---
Progress Note, Physician History of Present Illness: S/P repair of strangulated ventral hernia, small bowel resection. PO day 4. Passing flatus. Abdomen is soft , not tender, Wound is clean, no sign of infection. D/C Ng tube , sips of water , liquid diet in am. hematocrit is stable, 25. Normal WBC. - Current Medication List Current Medications: Active Medications Chlorhexidine Gluconate (Hibiclens For Decolonization -) 1 applic TP HS [facility] Last Admin: 08/24/17 21:18 Dose: 1 applic Heparin Sodium (Porcine) (Heparin -) 5,000 unit SQ TID [facility] Last Admin: 08/25/17 14:43 Dose: 5,000 unit Hydromorphone HCl (Dilaudid Injection -) 1 mg IVPB Q4H PRN PRN Reason: PAIN Meropenem 1 gm/ Dextrose 100 mls @ 200 mls/hr IVPB Q8H-IV [facility] PRN Reason: Protocol Last Admin: 08/25/17 09:44 Dose: 200 mls/hr Lactated Ringer's (Lactated Ringers Solution) 1,000 mls @ 75 mls/hr IV ASDIR [facility] Last Admin: 08/25/17 09:51 Dose: Not Given Labetalol HCl (Normodyne Injection -) 10 mg IVPUSH Q6H PRN PRN Reason: HYPERTENSION Last Admin: 08/25/17 12:33 Dose: 10 mg Lidocaine/Aluminum/Magnesium/Simeth (Magic Mouthwash *Sjr Formula* -) 5 ml MM Q6HPO [facility] Last Admin: 08/25/17 12:14 Dose: 5 ml Mupirocin (Bactroban Ointment (For Decolonization) -) 1 applic NS BID [facility] Stop: 08/27/17 21:59 Last Admin: 08/25/17 09:46 Dose: 1 applic Nystatin (Nystatin Oral Suspension -) 500,000 units PO Q6HPO [facility] Last Admin: 08/25/17 12:13 Dose: 500,000 units Ondansetron HCl (Zofran Injection) 4 mg IVPB Q6H PRN PRN Reason: NAUSEA - Objective Vital Signs: Vital Signs Temperature 98.2 F 08/25/17 14:00 Pulse Rate 73 08/25/17 14:00 Respiratory Rate 20 08/25/17 14:00 Blood Pressure 146/79 09/25/17 14:00 O2 Sat by Pulse Oximetry (%) 94 L 08/25/17 10:50 Labs: CBC, BMP 08/25/17 05:00 08/25/17 05:00 INR, PTT INR 1.08 (0.82-1.09) 08/21/17 09:45 Problem List - Problems (1) Small intestinal gangrene Code(s): K55.029 - ACUTE INFARCTION OF SMALL INTESTINE, EXTENT UNSPECIFIED (2) Omental infarction Code(s): K55.069 - ACUTE INFARCTION OF INTESTINE, PART AND EXTENT UNSPECIFIED (3) Elevated BUN Code(s): R79.9 - ABNORMAL FINDING OF BLOOD CHEMISTRY, UNSPECIFIED (4) Elevated serum creatinine Code(s): R79.89 - OTHER SPECIFIED ABNORMAL FINDINGS OF BLOOD CHEMISTRY
[2017-08-25] MEDS: amLODIPine BESYLATE 5 MG TABLET (FP) PO SCH (16:43)
--- NOTE | 2017-08-25 17:21 | PN ---
Teaching Attending Note Name of Resident: Norma Sales ATTENDING PHYSICIAN STATEMENT I saw and evaluated the patient. I reviewed the resident's note and discussed the case with the resident. I agree with the resident's findings and plan as documented. SUBJECTIVE: no fever or chills, has mild abd pain . mno N/V OBJECTIVE: NAD , NGT in , AAOx3 CV : RRR Lungs : CTAB Ext : no edema ABD: soft, TTP in all quadrants . mid line surgical dressing, removed . has a mid line clear surgical wound with ford , NL BS ASSESSMENT AND PLAN: 62 y/o man with h/o abd wall hernia after laparotomy, h/o HTN who presented with abd pain and was found to have strangulated hernia 1- Strangulated ventral hernia: s/p small bowel resection and primary anastomosis, POD4 Bowel sounds have returned, had flatus but no BM. stable HB - Cont IVF - cont meropenem - blood cx neg to date - cont PRN dilaudid - replete electrolytes 2- HTN: - PRN IV meds when BP > 165/100 while NPO 3- Acute blood loss anemia : due to surgical loss. -stable HB - monitor . 4- LORE: likely prerenal, resolved - cont IVF 5-Transaminitis : resolved 6- DVT px : SCDS, heparin Critical Care Total Critical Care Time (in minutes): 35 Critical Care Statement: The care of this patient involved high complexity decision making to prevent further life threatening deterioration of the patient 's condition and/or to evaluate & treat vital organ system(s) failure or risk of failure.
--- NOTE | 2017-08-25 18:13 | PN ---
Physical Exam: SUBJECTIVE: Patient seen and examined Said to have passed gas OBJECTIVE: Vital Signs Period Temp Pulse Resp BP Sys/Jacome Pulse Ox Last 24 Hr 97.9 F-99.6 F 70-100 17-22 130-174/65-96 94-96 GENERAL: The patient is awake, alert, and fully oriented, in no acute distress. HEAD: Normal with no signs of trauma. EYES: PERRL, extraocular movements intact, sclera anicteric, conjunctiva clear. No ptosis. ENT: NGT in place draining bilous fluids.Ears normal, nares patent, oropharynx clear without exudates, moist mucous membranes. NECK: Trachea midline, full range of motion, supple. LUNGS: Breath sounds equal, clear to auscultation bilaterally, no wheezes, no crackles, no accessory muscle use. HEART: Regular rate and rhythm, S1, S2 without murmur, rub or gallop. ABDOMEN: Soft, band across abdoment and chest, midline surgical wound seen, clean, dry with ford in place. appropriately tender, normoactive bowel sounds. EXTREMITIES: 2+ pulses, warm, well-perfused, no edema. NEUROLOGICAL: Cranial nerves II through XII grossly intact. Normal speech, gait not observed. PSYCH: Normal mood, normal affect. SKIN: Warm, dry, normal turgor, no rashes or lesions noted Laboratory Results - last 24 hr 08/25/17 08/25/17 05:00 05:00 WBC 3.8 L RBC 2.65 L Hgb 8.7 L Hct 25.2 L MCV 95.1 MCH 32.7 MCHC 34.4 RDW 12.7 Plt Count 204 MPV 7.9 D Neutrophils % 72.6 Lymphocytes % 13.4 Monocytes % 11.4 H Eosinophils % 2.3 D Basophils % 0.3 Sodium 146 H Potassium 3.4 L Chloride 104 Carbon Dioxide 33 H Anion Gap 9 BUN 21 H Creatinine 0.7 Random Glucose 92 Calcium 8.5 Phosphorus 3.0 D Magnesium 2.4 Active Medications Generic Name Dose Route Start Last Admin Trade Name Freq PRN Reason Stop Dose Admin Amlodipine Besylate 5 mg 08/25/17 16:30 08/25/17 16:43 Norvasc - PO 5 mg DAILY [facility] Administration Chlorhexidine Gluconate 1 applic 08/22/17 22:00 08/24/17 21:18 Hibiclens For Decolonization - TP 1 applic HS [facility] Administration Heparin Sodium (Porcine) 5,000 unit 08/22/17 14:00 08/25/17 14:43 Heparin - SQ 5,000 unit TID [facility] Administration Hydromorphone HCl 1 mg 08/23/17 09:11 Dilaudid Injection - IVPB Q4H PRN PAIN Meropenem 1 gm/ Dextrose 100 mls @ 200 mls/hr 08/22/17 14:15 08/25/17 17:22 IVPB 200 mls/hr Q8H-IV [facility] Administration Protocol Lactated Ringer's 1,000 mls @ 75 mls/hr 08/23/17 09:51 08/25/17 09:51 Lactated Ringers Solution IV Not Given ASDIR [facility] Lidocaine/Aluminum/Magnesium/Simeth 5 ml 08/23/17 18:00 08/25/17 17:20 Magic Mouthwash *Sjr Formula* - MM 5 ml Q6HPO [facility] Administration Mupirocin 1 applic 08/22/17 22:00 08/25/17 09:46 Bactroban Ointment (For Decolonization) - NS 08/27/17 21:59 1 applic BID [facility] Administration Nystatin 500,000 units 08/23/17 18:00 08/25/17 17:20 Nystatin Oral Suspension - PO 500,000 units Q6HPO [facility] Administration Ondansetron HCl 4 mg 08/21/17 20:45 Zofran Injection IVPB Q6H PRN NAUSEA ASSESSMENT/PLAN: 62 y/o man with h/o abd wall hernia after laparotomy, h/o HTN who presented with abd pain and was found to have strangulated hernia s/p laparotomy # Strangulated ventral hernia: s/p small bowel resection and primary anastomosis. 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 IV labetolol - with standing parameters #LORE: likely prerenal; IResolved #Electrolytes Replete as needed BMP #Prophylaxis DVT-Heparin #Dispo Transfer to Med-Surg- per surgeon Visit type - Emergency Visit Emergency Visit: Yes ED Registration Date: 08/21/17 Care time: The patient presented to the Emergency Department on the above date and was hospitalized for further evaluation of their emergent condition. - New Patient This patient is new to me today: No - Critical Care Critical Care patient: Yes Total Critical Care Time (in minutes): 43 Critical Care Statement: The care of this patient involved high complexity decision making to prevent further life threatening deterioration of the patient 's condition and/or to evaluate & treat vital organ system(s) failure or risk of failure. - Discharge Referral Referred to [facility] Med P.C.: No
[2017-08-25] MEDS ORDERED: HYDROmorphone HCL CARPU-JECT 1 MG/1 ML DISP.SYRIN IVPB PRN (18:52)
[2017-08-25] MEDS ORDERED: LACTATED RINGERS SOLUTION 1,000 ML IV SCH (18:52)
[2017-08-25] MEDS ORDERED: ONDANSETRON 4 MG/2 ML VIAL IVPB PRN (18:52)
[2017-08-25] MEDS: CHLORHEXIDINE GLUCONATE 4% CLEANSER FOR DECOLONIZATION TP SCH (21:30)
[2017-08-26] MEDS: NYSTATIN 500,000 UNITS/5 ML SUSPENSION PO SCH ×5 (00:41→23:37)
[2017-08-26] MEDS: MAG HYDROX/ALH/SMC/DPHA/LIDO 240 ML MOUTHWASH MM SCH ×6 (00:41→23:37)
[2017-08-26] MEDS ORDERED: PT OWN MED DRAWER 7, Y5N ONE ×6 (01:13→23:32)
[2017-08-26] MEDS: MEROPENEM 1 GM in DEXTROSE 5%-WATER - 100 ML IVPB SCH ×2 (01:17→11:35)
[2017-08-26] MEDS: HYDROmorphone *PCA* 10MG/50ML DISP.SYRIN PCA SCH (01:58)
[2017-08-26] MEDS: HEPARIN NA (PORCINE) 5,000 UNITS/ML 1ML VIAL SQ SCH ×3 (05:36→21:26)
[2017-08-26 07:59] LABS: BASOPHIL 0.6 % (0-2.0); EOSINOPHIL 2.6 % (0-4.5); MCH 32.9 pg (25.7-33.7); MCHC 34.3 g/dl (32.0-35.9); MEAN CELL VOLUME 95.9 fl (80-96); MEAN PLT VOLUME 8.5 fl (7.5-11.1); NEUTROPHILS 68.1 % (42.8-82.8); PLATELET COUNT 273 K/MM3 (134-434); RDW 13.1 % (11.9-15.9); WHITE BLOOD COUNT 6.7 K/mm3 (4.0-10.0)
[2017-08-26 08:16] LABS: GLUCOSE,RANDOM 91 mg/dL (74-106)
[2017-08-26 08:29] LABS: ANION GAP 8 (8-16); CALCIUM 8.5 mg/dL (8.5-10.1); CO2 30 mmol/L (21-32); CREATININE 0.8 mg/dL (0.7-1.3); MAGNESIUM 2.4 mg/dL (1.8-2.4); PHOSPHOROUS 2.6 mg/dL (2.5-4.9)
--- NOTE | 2017-08-26 09:33 | PN ---
Progress Note, Physician History of Present Illness: PO day 5. He has had a bowel movement, liquid stools. Wound is clean , no drainage. Abdomen is soft , not distended. WBC is normal . Hematocrit is improving. Will progress diet. Discharge planning, possible discharge in a.m. - Current Medication List Current Medications: Active Medications Amlodipine Besylate (Norvasc -) 5 mg PO DAILY [facility] Last Admin: 08/25/17 16:43 Dose: 5 mg Chlorhexidine Gluconate (Hibiclens For Decolonization -) 1 applic TP HS [facility] Last Admin: 08/25/17 21:30 Dose: Not Given Heparin Sodium (Porcine) (Heparin -) 5,000 unit SQ TID [facility] Last Admin: 08/26/17 05:36 Dose: 5,000 unit Hydromorphone HCl (Dilaudid Injection -) 1 mg IVPB Q4H PRN PRN Reason: PAIN Meropenem 1 gm/ Dextrose 100 mls @ 200 mls/hr IVPB Q8H-IV [facility] PRN Reason: Protocol Last Admin: 08/26/17 01:17 Dose: 200 mls/hr Lactated Ringer's (Lactated Ringers Solution) 1,000 mls @ 75 mls/hr IV ASDIR [facility] Last Admin: 08/25/17 19:42 Dose: 75 mls/hr Lidocaine/Aluminum/Magnesium/Simeth (Magic Mouthwash *Sjr Formula* -) 5 ml MM Q6HPO [facility] Last Admin: 08/26/17 05:36 Dose: 5 ml Mupirocin (Bactroban Ointment (For Decolonization) -) 1 applic NS BID [facility] Stop: 08/27/17 21:59 Last Admin: 08/25/17 21:30 Dose: Not Given Nystatin (Nystatin Oral Suspension -) 500,000 units PO Q6HPO [facility] Last Admin: 08/26/17 05:36 Dose: 500,000 units Ondansetron HCl (Zofran Injection) 4 mg IVPB Q6H PRN PRN Reason: NAUSEA - Objective Vital Signs: Vital Signs Temperature 99.3 F 08/26/17 06:00 Pulse Rate 89 08/26/17 06:00 Respiratory Rate 20 08/26/17 06:00 Blood Pressure 155/98 08/26/17 06:00 O2 Sat by Pulse Oximetry (%) 94 L 08/25/17 21:00 Labs: CBC, BMP 08/26/17 07:00 08/26/17 07:00 INR, PTT INR 1.08 (0.82-1.09) 08/21/17 09:45 Problem List - Problems (1) Small intestinal gangrene Code(s): K55.029 - ACUTE INFARCTION OF SMALL INTESTINE, EXTENT UNSPECIFIED (2) Omental infarction Code(s): K55.069 - ACUTE INFARCTION OF INTESTINE, PART AND EXTENT UNSPECIFIED (3) Elevated BUN Code(s): R79.9 - ABNORMAL FINDING OF BLOOD CHEMISTRY, UNSPECIFIED (4) Elevated serum creatinine Code(s): R79.89 - OTHER SPECIFIED ABNORMAL FINDINGS OF BLOOD CHEMISTRY
[2017-08-26] MEDS: MUPIROCIN 2% TOPICAL OINTMENT FOR DECOLONIZATION NS SCH ×2 (09:36→21:27)
[2017-08-26] MEDS: amLODIPine BESYLATE 5 MG TABLET (FP) PO SCH (10:10)
[2017-08-26] MEDS: LISINOPRIL 10 MG TABLET (FP) PO SCH (15:14)
--- NOTE | 2017-08-26 15:55 | PN ---
Progress Note (short form) - Note Progress Note: No acute events overnight. (+) Liquid BM. No CP or SOB. OBJECTIVE: Intake & Output 08/23/17 08/24/17 08/25/17 08/26/17 23:59 23:59 23:59 23:59 Intake Total 3690 1975 2770 700 Output Total 2900 3150 1400 Balance 790 -1175 1370 700 Weight 198 lb 6.656 oz 194 lb 4 oz 196 lb 4 oz Last Vital Signs Temp Pulse Resp BP Pulse Ox 99.0 F 99 H 18 133/73 94 L 08/26/17 13:34 08/26/17 13:34 08/26/17 13:34 08/26/17 13:34 08/26/17 09:00 Active Medications Chlorhexidine Gluconate (Hibiclens For Decolonization -) 1 applic TP HS [facility] Last Admin: 08/25/17 21:30 Dose: Not Given Heparin Sodium (Porcine) (Heparin -) 5,000 unit SQ TID [facility] Last Admin: 08/26/17 15:14 Dose: 5,000 unit Hydromorphone HCl (Dilaudid Injection -) 1 mg IVPB Q4H PRN PRN Reason: PAIN Meropenem 1 gm/ Dextrose 100 mls @ 200 mls/hr IVPB Q8H-IV [facility] PRN Reason: Protocol Last Admin: 08/26/17 11:35 Dose: 200 mls/hr Lidocaine/Aluminum/Magnesium/Simeth (Magic Mouthwash *Sjr Formula* -) 5 ml MM Q6HPO [facility] Last Admin: 08/26/17 11:36 Dose: 5 ml Lisinopril (Prinivil) 10 mg PO DAILY [facility] Last Admin: 08/26/17 15:14 Dose: 10 mg Mupirocin (Bactroban Ointment (For Decolonization) -) 1 applic NS BID [facility] Stop: 08/27/17 21:59 Last Admin: 08/26/17 09:36 Dose: Not Given Nystatin (Nystatin Oral Suspension -) 500,000 units PO Q6HPO [facility] Last Admin: 08/26/17 11:35 Dose: 500,000 units Ondansetron HCl (Zofran Injection) 4 mg IVPB Q6H PRN PRN Reason: NAUSEA Gen: NAD at rest Heart: RRR Lung: decreased breath sounds at the bases Abd: soft, nontender, + bowel sounds Ext: no edema Laboratory Results - last 24 hr 08/26/17 08/26/17 07:00 07:00 WBC 6.7 D RBC 2.87 L Hgb 9.4 L Hct 27.5 L MCV 95.9 MCH 32.9 MCHC 34.3 RDW 13.1 Plt Count 273 D MPV 8.5 Neutrophils % 68.1 Lymphocytes % 18.1 D Monocytes % 10.6 H Eosinophils % 2.6 Basophils % 0.6 Sodium 141 Potassium 3.6 Chloride 103 Carbon Dioxide 30 Anion Gap 8 BUN 19 H Creatinine 0.8 Random Glucose 91 Calcium 8.5 Phosphorus 2.6 Magnesium 2.4 ASSESSMENT AND PLAN: Strangulated Ventral Hernia s/p exploratory laparotomy/small bowel resection/primary anastamosis Anemia Acute Kidney Injury improving HTN - pain control - incentive spirometry - IVF - OOB, ambulate - DVT prophylaxis - PO per surgery Dr Eddy
--- NOTE | 2017-08-26 16:57 | PN ---
Progress Note, Physician History of Present Illness: patient with no complaints ng tube removed patient tolerated liquid diet - Current Medication List Current Medications: Active Medications Chlorhexidine Gluconate (Hibiclens For Decolonization -) 1 applic TP HS [facility] Last Admin: 08/25/17 21:30 Dose: Not Given Heparin Sodium (Porcine) (Heparin -) 5,000 unit SQ TID [facility] Last Admin: 08/26/17 15:14 Dose: 5,000 unit Hydromorphone HCl (Dilaudid Injection -) 1 mg IVPB Q4H PRN PRN Reason: PAIN Lidocaine/Aluminum/Magnesium/Simeth (Magic Mouthwash *Sjr Formula* -) 5 ml MM Q6HPO [facility] Last Admin: 08/26/17 11:36 Dose: 5 ml Lisinopril (Prinivil) 10 mg PO DAILY [facility] Last Admin: 08/26/17 15:14 Dose: 10 mg Mupirocin (Bactroban Ointment (For Decolonization) -) 1 applic NS BID [facility] Stop: 08/27/17 21:59 Last Admin: 08/26/17 09:36 Dose: Not Given Nystatin (Nystatin Oral Suspension -) 500,000 units PO Q6HPO [facility] Last Admin: 08/26/17 11:35 Dose: 500,000 units Ondansetron HCl (Zofran Injection) 4 mg IVPB Q6H PRN PRN Reason: NAUSEA - Objective Vital Signs: Vital Signs Temperature 99.0 F 08/26/17 13:34 Pulse Rate 99 H 08/26/17 13:34 Respiratory Rate 18 08/26/17 13:34 Blood Pressure 133/73 08/26/17 13:34 O2 Sat by Pulse Oximetry (%) 94 L 08/26/17 09:00 Constitutional: Yes: No Distress, Calm Cardiovascular: Yes: Regular Rate and Rhythm Respiratory: Yes: Regular, CTA Bilaterally Gastrointestinal: Yes: Normal Bowel Sounds, Soft Musculoskeletal: Yes: WNL Extremities: Yes: WNL Neurological: Yes: Alert, Oriented Psychiatric: Yes: Alert Labs: CBC, BMP 08/26/17 07:00 08/26/17 07:00 INR, PTT INR 1.08 (0.82-1.09) 08/21/17 09:45 Assessment/Plan Problem List - Problems (1) Hernia of abdominal cavity, with obstruction Code(s): K46.0 - UNSP ABDOMINAL HERNIA WITH OBSTRUCTION, WITHOUT GANGRENE (2) Incarcerated hernia Code(s): K46.0 - UNSP ABDOMINAL HERNIA WITH OBSTRUCTION, WITHOUT GANGRENE (3) Pulmonary nodule Code(s): R91.1 - SOLITARY PULMONARY NODULE SB resection with primary anastomosis due to strangulated hernia, infarcted gangrenous omentum LORE plan continue as per surgery will stop all abx
--- NOTE | 2017-08-26 18:50 | PN ---
Physical Exam: SUBJECTIVE: Patient seen and examined Patient seen. Had NGT removed yesterday, started feeds today and passed loose stool. OBJECTIVE: Vital Signs Period Temp Pulse Resp BP Sys/Jacome Pulse Ox Last 24 Hr 98.7 F-100.4 F 87-99 18-20 133-181/73-98 94-94 GENERAL: The patient is awake, alert, and fully oriented, in no acute distress. HEAD: Normal with no signs of trauma. EYES: PERRL, extraocular movements intact, sclera anicteric, conjunctiva clear. No ptosis. ENT: NGT removed. .Ears normal, nares patent, oropharynx clear without exudates , moist mucous membranes. NECK: Trachea midline, full range of motion, supple. LUNGS: Breath sounds equal, clear to auscultation bilaterally, no wheezes, no crackles, no accessory muscle use. HEART: Regular rate and rhythm, S1, S2 without murmur, rub or gallop. ABDOMEN: Soft, band across abdoment and chest, midline surgical wound seen, clean, dry with ford in place. Mild tenderness normoactive bowel sounds. EXTREMITIES: 2+ pulses, warm, well-perfused, no edema. NEUROLOGICAL: Cranial nerves II through XII grossly intact. Normal speech, gait not observed. PSYCH: Normal mood, normal affect. SKIN: Warm, dry, normal turgor, no rashes or lesions noted Laboratory Results - last 24 hr 08/26/17 08/26/17 07:00 07:00 WBC 6.7 D RBC 2.87 L Hgb 9.4 L Hct 27.5 L MCV 95.9 MCH 32.9 MCHC 34.3 RDW 13.1 Plt Count 273 D MPV 8.5 Neutrophils % 68.1 Lymphocytes % 18.1 D Monocytes % 10.6 H Eosinophils % 2.6 Basophils % 0.6 Sodium 141 Potassium 3.6 Chloride 103 Carbon Dioxide 30 Anion Gap 8 BUN 19 H Creatinine 0.8 Random Glucose 91 Calcium 8.5 Phosphorus 2.6 Magnesium 2.4 Active Medications Generic Name Dose Route Start Last Admin Trade Name Freq PRN Reason Stop Dose Admin Chlorhexidine Gluconate 1 applic 08/25/17 22:00 08/25/17 21:30 Hibiclens For Decolonization - TP Not Given HS [facility] Heparin Sodium (Porcine) 5,000 unit 08/25/17 22:00 08/26/17 15:14 Heparin - SQ 5,000 unit TID [facility] Administration Hydromorphone HCl 1 mg 08/25/17 18:52 Dilaudid Injection - IVPB Q4H PRN PAIN Lidocaine/Aluminum/Magnesium/Simeth 5 ml 08/26/17 00:00 08/26/17 18:28 Magic Mouthwash *Sjr Formula* - MM 5 ml Q6HPO [facility] Administration Lisinopril 10 mg 08/26/17 12:30 08/26/17 15:14 Prinivil PO 10 mg DAILY [facility] Administration Mupirocin 1 applic 08/25/17 22:00 08/26/17 09:36 Bactroban Ointment (For Decolonization) - NS 08/27/17 21:59 Not Given BID [facility] Nystatin 500,000 units 08/26/17 00:00 08/26/17 18:25 Nystatin Oral Suspension - PO 500,000 units Q6HPO [facility] Administration Ondansetron HCl 4 mg 08/25/17 18:52 Zofran Injection IVPB Q6H PRN NAUSEA ASSESSMENT/PLAN: 62 y/o man with h/o abd wall hernia after laparotomy, h/o HTN who presented with abd pain and was found to have strangulated hernia s/p laparotomy # Strangulated ventral hernia: s/p small bowel resection and primary anastomosis. Bowel sounds present, has passed gas -stop IVF - completed meropenem - per Dr Fay today - follow blood cx - no growth after 72hrs -Stable counts #Leucopenia- Improved Stable counts #Anemia: improved stable repeat CBC #h/o HTN: hold po meds . resume Lisinopril 10mg Hold HCTZ Stop amlodipine #LORE: likely prerenal; Resolved #FEN Electrolytes-stable Upgrade feeds as tolerated BMP #Prophylaxis DVT-Heparin Visit type - Emergency Visit Emergency Visit: Yes ED Registration Date: 08/21/17 Care time: The patient presented to the Emergency Department on the above date and was hospitalized for further evaluation of their emergent condition. - New Patient This patient is new to me today: No - Critical Care Critical Care patient: No - Discharge Referral Referred to [facility] Med P.C.: No
--- NOTE | 2017-08-26 19:02 | PN ---
Teaching Attending Note Name of Resident: Nroma Sales ATTENDING PHYSICIAN STATEMENT I saw and evaluated the patient. I reviewed the resident's note and discussed the case with the resident. I agree with the resident's findings and plan as documented. SUBJECTIVE: fever this am . one episode of watery BM. abd pain better . OBJECTIVE: NAD , NGT in , AAOx3 CV : RRR Lungs : CTAB Ext : no edema ABD: soft, TTP in all quadrants . mid line surgical dressing, removed . has a mid line clear surgical wound with ford , NL BS ASSESSMENT AND PLAN: 62 y/o man with h/o abd wall hernia after laparotomy, h/o HTN who presented with abd pain and was found to have strangulated hernia 1- Strangulated ventral hernia: s/p small bowel resection and primary anastomosis, POD5 - DC IVF - ABx stopped today. monitor if fever recurs - blood cx neg to date - Cont PRN dilaudid - diet 2- HTN: - resume BP meds 3- Acute blood loss anemia : due to surgical loss. - Stable HB - monitor . 4- LORE: likely prerenal, resolved 5-Transaminitis : resolved 6- DVT px : SCDS, heparin
[2017-08-26] MEDS: CHLORHEXIDINE GLUCONATE 4% CLEANSER FOR DECOLONIZATION TP SCH (21:27)
[2017-08-27] MEDS: NYSTATIN 500,000 UNITS/5 ML SUSPENSION PO SCH ×3 (06:03→17:25)
[2017-08-27] MEDS: HEPARIN NA (PORCINE) 5,000 UNITS/ML 1ML VIAL SQ SCH ×2 (06:04→13:48)
[2017-08-27] MEDS: MAG HYDROX/ALH/SMC/DPHA/LIDO 240 ML MOUTHWASH MM SCH ×3 (06:04→17:25)
[2017-08-27 08:28] LABS: BASOPHIL 0.4 % (0-2.0); EOSINOPHIL 2.7 % (0-4.5); MCH 32.4 pg (25.7-33.7); MEAN CELL VOLUME 95.5 fl (80-96); MEAN PLT VOLUME 8.3 fl (7.5-11.1); PLATELET COUNT 267 K/MM3 (134-434); RDW 13.3 % (11.9-15.9); WHITE BLOOD COUNT 6.3 K/mm3 (4.0-10.0)
--- NOTE | 2017-08-27 08:40 | PN ---
Teaching Attending Note Name of Resident: Norma Sales ATTENDING PHYSICIAN STATEMENT I saw and evaluated the patient. I reviewed the resident's note and discussed the case with the resident. I agree with the resident's findings and plan as documented. SUBJECTIVE: Patient is feeling better, with no acute distress. No shortness of breath, wants to go home. OBJECTIVE: Vital Signs Temperature 99.1 F 08/27/17 06:00 Pulse Rate 75 08/27/17 06:00 Respiratory Rate 18 08/27/17 06:00 Blood Pressure 146/89 08/27/17 06:00 O2 Sat by Pulse Oximetry (%) 96 08/26/17 21:00 CBCD WBC 6.3 K/mm3 (4.0-10.0) 08/27/17 07:18 RBC 2.86 M/mm3 (4.00-5.60) L 08/27/17 07:18 Hgb 9.3 GM/dL (11.7-16.9) L 08/27/17 07:18 Hct 27.3 % (35.4-49) L 08/27/17 07:18 MCV 95.5 fl (80-96) 08/27/17 07:18 MCHC 34.0 g/dl (32.0-35.9) 08/27/17 07:18 RDW 13.3 % (11.9-15.9) 08/27/17 07:18 Plt Count 267 K/MM3 (134-434) 08/27/17 07:18 MPV 8.3 fl (7.5-11.1) 08/27/17 07:18 CMP Sodium 141 mmol/L (136-145) 08/26/17 07:00 Potassium 3.6 mmol/L (3.5-5.1) 08/26/17 07:00 Chloride 103 mmol/L (98-107) 08/26/17 07:00 Carbon Dioxide 30 mmol/L (21-32) 08/26/17 07:00 Anion Gap 8 (8-16) 08/26/17 07:00 BUN 19 mg/dL (7-18) H 08/26/17 07:00 Creatinine 0.8 mg/dL (0.7-1.3) 08/26/17 07:00 Creat Clearance w eGFR > 60 (>60) 08/24/17 05:15 Random Glucose 91 mg/dL (74-106) 08/26/17 07:00 Calcium 8.5 mg/dL (8.5-10.1) 08/26/17 07:00 Total Bilirubin 0.8 mg/dL (0.2-1.0) 08/24/17 05:15 AST 29 U/L (15-37) 08/24/17 05:15 ALT 40 U/L (12-78) D 08/24/17 05:15 Alkaline Phosphatase 54 U/L (45-117) 08/24/17 05:15 Total Protein 5.0 g/dl (6.4-8.2) L 08/24/17 05:15 Albumin 2.5 g/dl (3.4-5.0) L 08/24/17 05:15 Current Medications Generic Name Dose Route Start Last Admin Trade Name Freq PRN Reason Stop Dose Admin Chlorhexidine Gluconate 1 applic 08/25/17 22:00 08/26/17 21:27 Hibiclens For Decolonization - TP Not Given HS SANTOSH Heparin Sodium (Porcine) 5,000 unit 08/25/17 22:00 08/27/17 06:04 Heparin - SQ 5,000 unit TID S[facility] Administration Hydromorphone HCl 1 mg 08/25/17 18:52 Dilaudid Injection - IVPB Q4H PRN PAIN Lidocaine/Aluminum/Magnesium/Simeth 5 ml 08/26/17 00:00 08/27/17 06:04 Magic Mouthwash *Sjr Formula* - MM 5 ml Q6HPO S[facility] Administration Lisinopril 10 mg 08/26/17 12:30 08/26/17 15:14 Prinivil PO 10 mg DAILY S[facility] Administration Mupirocin 1 applic 08/25/17 22:00 08/26/17 21:27 Bactroban Ointment (For Decolonization) - NS 08/27/17 21:59 Not Given BID SANTOSH Nystatin 500,000 units 08/26/17 00:00 08/27/17 06:03 Nystatin Oral Suspension - PO 500,000 units Q6HPO [facility] Administration Ondansetron HCl 4 mg 08/25/17 18:52 Zofran Injection IVPB Q6H PRN NAUSEA Home Medications Medication Instructions Recorded Aspirin [ASA -] 81 mg PO DAILY 08/21/17 Lisinopril/Hydrochlorothiazide 1 each PO DAILY 08/21/17 [Lisinopril-Hctz 10-12.5 mg Tab] Microbiology 08/21/17 21:05 Blood - Peripheral Venous Blood Culture - Final NO GROWTH AFTER 5 DAYS INCUBATION 08/21/17 21:10 Blood - Peripheral Venous Blood Culture - Final NO GROWTH AFTER 5 DAYS INCUBATION 08/21/17 11:55 Urine - Urine Clean Catch Urine Culture - Final NO GROWTH OBTAINED PE: Anna are intact rest of physical intact per resident's note ASSESSMENT AND PLAN: 62 y/o man with h/o abd wall hernia after laparotomy, h/o HTN who presented with abd pain and was found to have strangulated hernia # POD #6 s/p Strangulated ventral hernia , small bowel resection with primary anastomosis Off antibiotic now, patient can be discharge home as per surgery and ID. PAtient was told if he develops fever to return to ED. continue incentive spirometer. # HTN: continue BP meds # Acute blood loss anemia : due to surgical loss. # LORE: likely prerenal, resolved #Transaminitis : resolved discharge patient home today
--- NOTE | 2017-08-27 08:51 | PN ---
Physical Exam: SUBJECTIVE: Patient seen and examined. Had 3 loose bowels yesterday. No new compalints this morning. Tolerated clear liquids yesterday and is starting regular diet today Asking about wound care at home OBJECTIVE: Vital Signs Period Temp Pulse Resp BP Sys/Jacome Pulse Ox Last 24 Hr 97.5 F-100.4 F 74-99 18-18 128-152/67-91 94-96 GENERAL: The patient is awake, alert, and fully oriented, in no acute distress. HEAD: Normal with no signs of trauma. EYES: PERRL, extraocular movements intact, sclera anicteric, conjunctiva clear. No ptosis. ENT: NGT removed. .Ears normal, nares patent, oropharynx clear without exudates , moist mucous membranes. NECK: Trachea midline, full range of motion, supple. LUNGS: Breath sounds equal, clear to auscultation bilaterally, no wheezes, no crackles, no accessory muscle use. HEART: Regular rate and rhythm, S1, S2 without murmur, rub or gallop. ABDOMEN: Soft, abdominal compression in place, midline surgical wound seen, clean, dry with ford in place. Mild tenderness normoactive bowel sounds. EXTREMITIES: 2+ pulses, warm, well-perfused, no edema. NEUROLOGICAL: Cranial nerves II through XII grossly intact. Normal speech, gait not observed. PSYCH: Normal mood, normal affect. SKIN: Warm, dry, normal turgor, no rashes or lesions noted Laboratory Results - last 24 hr 08/27/17 07:18 WBC 6.3 RBC 2.86 L Hgb 9.3 L Hct 27.3 L MCV 95.5 MCH 32.4 MCHC 34.0 RDW 13.3 Plt Count 267 MPV 8.3 Neutrophils % 69.0 Lymphocytes % 17.4 Monocytes % 10.5 H Eosinophils % 2.7 Basophils % 0.4 Active Medications Generic Name Dose Route Start Last Admin Trade Name Freq PRN Reason Stop Dose Admin Chlorhexidine Gluconate 1 applic 08/25/17 22:00 08/26/17 21:27 Hibiclens For Decolonization - TP Not Given HS [facility] Heparin Sodium (Porcine) 5,000 unit 08/25/17 22:00 08/27/17 06:04 Heparin - SQ 5,000 unit TID [facility] Administration Hydromorphone HCl 1 mg 08/25/17 18:52 Dilaudid Injection - IVPB Q4H PRN PAIN Lidocaine/Aluminum/Magnesium/Simeth 5 ml 08/26/17 00:00 08/27/17 06:04 Magic Mouthwash *Sjr Formula* - MM 5 ml Q6HPO [facility] Administration Lisinopril 10 mg 08/26/17 12:30 08/26/17 15:14 Prinivil PO 10 mg DAILY [facility] Administration Mupirocin 1 applic 08/25/17 22:00 08/26/17 21:27 Bactroban Ointment (For Decolonization) - NS 08/27/17 21:59 Not Given BID S[facility]H Nystatin 500,000 units 08/26/17 00:00 08/27/17 06:03 Nystatin Oral Suspension - PO 500,000 units Q6HPO [facility] Administration Ondansetron HCl 4 mg 08/25/17 18:52 Zofran Injection IVPB Q6H PRN NAUSEA ASSESSMENT/PLAN: 62 y/o man with h/o abd wall hernia after laparotomy, h/o HTN who presented with abd pain and was found to have strangulated hernia s/p laparotomy # Strangulated ventral hernia: s/p small bowel resection and primary anastomosis. Pased loose stool C. diff toxin pending - completed meropenem -Stable counts Wound care instructions per surgical team #Leucopenia- Resolved Stable counts #Anemia: improved stable repeat CBC #h/o HTN: hold po meds . Continue Lisinopril 10mg Hold HCTZ #LORE: likely prerenal; Resolved #FEN Electrolytes-stable Upgrade feeds as tolerated BMP #Prophylaxis DVT-Heparin #Dispo Likely D/C today
[2017-08-27 08:58] LABS: ANION GAP 6 (8-16); CO2 31 mmol/L (21-32); CREATININE 0.8 mg/dL (0.7-1.3); GLUCOSE,RANDOM 92 mg/dL (74-106); MAGNESIUM 2.3 mg/dL (1.8-2.4); PHOSPHOROUS 2.7 mg/dL (2.5-4.9)
[2017-08-27] MEDS: MUPIROCIN 2% TOPICAL OINTMENT FOR DECOLONIZATION NS SCH (10:22)
[2017-08-27] MEDS: LISINOPRIL 10 MG TABLET (FP) PO SCH (10:24)
[2017-08-27] MEDS ORDERED: PT OWN MED DRAWER 7, Y5N ONE (11:54)
--- NOTE | 2017-08-27 14:37 | PN ---
Progress Note, Physician History of Present Illness: patient doing well no complaints still in 99 but clinically no issues tenderness at operated site - Current Medication List Current Medications: Active Medications Chlorhexidine Gluconate (Hibiclens For Decolonization -) 1 applic TP HS [facility] Last Admin: 08/26/17 21:27 Dose: Not Given Heparin Sodium (Porcine) (Heparin -) 5,000 unit SQ TID [facility] Last Admin: 08/27/17 13:48 Dose: 5,000 unit Hydromorphone HCl (Dilaudid Injection -) 1 mg IVPB Q4H PRN PRN Reason: PAIN Lidocaine/Aluminum/Magnesium/Simeth (Magic Mouthwash *Sjr Formula* -) 5 ml MM Q6HPO [facility] Last Admin: 08/27/17 11:57 Dose: 5 ml Lisinopril (Prinivil) 10 mg PO DAILY [facility] Last Admin: 08/27/17 10:24 Dose: 10 mg Mupirocin (Bactroban Ointment (For Decolonization) -) 1 applic NS BID [facility] Stop: 08/27/17 21:59 Last Admin: 08/27/17 10:22 Dose: Not Given Nystatin (Nystatin Oral Suspension -) 500,000 units PO Q6HPO [facility] Last Admin: 08/27/17 11:57 Dose: 500,000 units Ondansetron HCl (Zofran Injection) 4 mg IVPB Q6H PRN PRN Reason: NAUSEA - Objective Vital Signs: Vital Signs Temperature 99.9 F H 08/27/17 13:33 Pulse Rate 93 H 08/27/17 13:33 Respiratory Rate 16 08/27/17 13:33 Blood Pressure 122/70 08/27/17 13:33 O2 Sat by Pulse Oximetry (%) 96 08/27/17 09:00 Constitutional: Yes: No Distress, Calm Cardiovascular: Yes: Regular Rate and Rhythm Respiratory: Yes: Regular, CTA Bilaterally Gastrointestinal: Yes: Normal Bowel Sounds, Soft, Other Musculoskeletal: Yes: WNL Extremities: Yes: WNL Neurological: Yes: Alert, Oriented Psychiatric: Yes: Alert, Oriented Labs: CBC, BMP 08/27/17 07:18 08/27/17 07:18 INR, PTT INR 1.08 (0.82-1.09) 08/21/17 09:45 Assessment/Plan Problem List - Problems (1) Hernia of abdominal cavity, with obstruction Code(s): K46.0 - UNSP ABDOMINAL HERNIA WITH OBSTRUCTION, WITHOUT GANGRENE (2) Incarcerated hernia Code(s): K46.0 - UNSP ABDOMINAL HERNIA WITH OBSTRUCTION, WITHOUT GANGRENE (3) Pulmonary nodule Code(s): R91.1 - SOLITARY PULMONARY NODULE SB resection with primary anastomosis due to strangulated hernia, infarcted gangrenous omentum LORE plan continue as per surgery stable off abx
[2017-08-27 14:52] VITALS: PULSE 88
[2017-08-27 17:52] VITALS: BP 110/60; TEMP 98.8
--- NOTE | 2017-08-27 20:04 | DS ---
Physical Exam: SUBJECTIVE: Patient seen and examined No new complaints overnight Had three bowel movements last night. OBJECTIVE: Vital Signs Period Temp Pulse Resp BP Sys/Jacome Pulse Ox Last 24 Hr 98.8 F-99.9 F 74-104 16-18 110-149/60-89 96-96 PHYSICAL EXAM GENERAL: The patient is awake, alert, and fully oriented, in no acute distress. HEAD: Normal with no signs of trauma. EYES: PERRL, extraocular movements intact, sclera anicteric, conjunctiva clear. No ptosis. ENT: NGT removed. .Ears normal, nares patent, oropharynx clear without exudates , moist mucous membranes. NECK: Trachea midline, full range of motion, supple. LUNGS: Breath sounds equal, clear to auscultation bilaterally, no wheezes, no crackles, no accessory muscle use. HEART: Regular rate and rhythm, S1, S2 without murmur, rub or gallop. ABDOMEN: Soft, abdominal compression in place, midline surgical wound seen, clean, dry with ford in place. Mild tenderness normoactive bowel sounds. EXTREMITIES: 2+ pulses, warm, well-perfused, no edema. NEUROLOGICAL: Cranial nerves II through XII grossly intact. Normal speech, gait not observed. PSYCH: Normal mood, normal affect. SKIN: Warm, dry, normal turgor, no rashes or lesions noted LABS Laboratory Results - last 24 hr 08/27/17 08/27/17 07:18 07:18 WBC 6.3 RBC 2.86 L Hgb 9.3 L Hct 27.3 L MCV 95.5 MCH 32.4 MCHC 34.0 RDW 13.3 Plt Count 267 MPV 8.3 Neutrophils % 69.0 Lymphocytes % 17.4 Monocytes % 10.5 H Eosinophils % 2.7 Basophils % 0.4 Sodium 138 Potassium 3.6 Chloride 101 Carbon Dioxide 31 Anion Gap 6 L BUN 16 Creatinine 0.8 Random Glucose 92 Calcium 8.0 L Phosphorus 2.7 Magnesium 2.3 HOSPITAL COURSE: Date of Admission:08/21/17 Date of Discharge: 08/27/17 62 y/o man with h/o abd wall hernia after laparotomy, h/o HTN who presented with abd pain and was found to have strangulated hernia s/p laparotomy with small bowel resection and primary anastomosis. When he presented, he was noted to have LORE BUN-41, Cr-1.4 on admission, probably prerenal from dehydration but recovered fully, BUN 19 and Cr-0.8 on discharge. Was managed for 5 days on meropem for fecal spillage, received fluids and electrolytes as needed, and recovered well tolerating full diet. He was discharged to follow up with his surgeon and primary care doctor in one week, and to resume his home aspirin and lisinopril-HCTZ. Minutes to complete discharge: 40 Discharge Summary Reason For Visit: ABDOMINAL HERNIA WITH OBSTRUCTION - Instructions Diet, Activity, Other Instructions: You were admitted for a hernia that got complicated with obstruction and of your bowel You had surgery and had your bowel repaired. You were treated with antibiotics, fluids and electrolytes. Follow up with your primary doctor in one week. Also follow up with your surgeon in one week Continue taking all your medicines If you feel you are not getting better or your symptoms worsen see your primary care doctor, or go to the nearest emergency room if you spike tempreature please come back to th emergency room Disposition: HOME - Home Medications Comprehensive Discharge Medication List: Ambulatory Orders Aspirin [ASA -] 81 mg PO DAILY 08/21/17 Lisinopril/Hydrochlorothiazide [Lisinopril-Hctz 10-12.5 mg Tab] 1 each PO DAILY 08/21/17 This patient is new to me today: No Emergency Visit: Yes ED Registration Date: 08/21/17 Care time: The patient presented to the Emergency Department on the above date and was hospitalized for further evaluation of their emergent condition. Critical Care patient: No - Discharge Referral Referred to [facility] No
== END 2017-08-27 19:00 | disposition home or self-care (01) | DRG 329 ==
LOC: JER 08:47 → JERBED 14:23 → JICU 22:01 → J6S 08-25 20:00
PROVIDERS: ADMIT Internal Medicine; ATTEND Internal Medicine
PROC: 0DB80ZZ Excision of Small Intestine, Open Approach (ICD-10-PCS; 2017-08-21)
PROC: 0DBS0ZZ (ICD-10-PCS; 2017-08-21)
PROC: 0DNS0ZZ (ICD-10-PCS; 2017-08-21)
PROC: 0DN80ZZ Release Small Intestine, Open Approach (ICD-10-PCS; 2017-08-21)
PROC: 0WQF0ZZ Repair Abdominal Wall, Open Approach (ICD-10-PCS; principal; 2017-08-21 15:00)
DX: K43.0 Incisional hernia with obstruction, without gangrene (principal); K55.029 Acute infarction of small intestine, extent unspecified; N17.9 Acute kidney failure, unspecified; D62 Acute posthemorrhagic anemia; I10 Essential (primary) hypertension; K66.0 Peritoneal adhesions (postprocedural) (postinfection); D72.828 Other elevated white blood cell count; E86.0 Dehydration; R79.89 Other specified abnormal findings of blood chemistry; R91.1 Solitary pulmonary nodule; R74.0 Nonspecific elevation of levels of transaminase and lactic acid dehydrogenase [LDH]; D70.8 Other neutropenia
CPT/HCPCS: 36415; 71010-TC; 71020-TC; 74020-TC; 74177-TC; 80048; 80053; 81003; 83605; 83690; 83735; 84100; 85025; 85027; 85610; 85730; 86850; 86900; 86901; 87040; 87045; 87046; 87086; 87205; 87324; 87449; 88305-TC; 88307-TC; 93005; 93010; 94760; 97116-GP; 97161-GP; 99284-25; J1644; Q9967

== ENCOUNTER 2017-08-30 16:57 | Inpatient (IN) | payer OTHER ==
[2017-08-30 17:19] VITALS: BMI 24.4
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
[2017-08-30 18:13] LABS: BASOPHIL 0.3 % (0-2.0); EOSINOPHIL 0.9 % (0-4.5); MCH 32.8 pg (25.7-33.7); MCHC 34.9 g/dl (32.0-35.9); MEAN PLT VOLUME 8.2 fl (7.5-11.1); NEUTROPHILS 83.9 % (42.8-82.8); PLATELET COUNT 321 K/MM3 (134-434); RDW 12.9 % (11.9-15.9); WHITE BLOOD COUNT 7.8 K/mm3 (4.0-10.0)
[2017-08-30] MEDS ORDERED: METRONIDAZOLE 500 MG PREMIXED 100 ML IVPB ONE ×2 (18:15→18:45)
[2017-08-30] MEDS ORDERED: LEVOFLOXACIN 750 MG IVPB 150 ML IVPB ONE ×2 (18:15→18:36)
[2017-08-30 18:34] LABS: INR 1.34 (0.82-1.09); PROTHROMBIN TIME (PATIENT) 14.8 SEC (9.98-11.88)
[2017-08-30 20:04] LABS: ALBUMIN 2.1 g/dl (3.4-5.0); ALK PHOS 95 U/L (45-117); ANION GAP 8 (8-16); BILIRUBIN,TOTAL 0.7 mg/dL (0.2-1.0); CALCIUM 7.9 mg/dL (8.5-10.1); CO2 29 mmol/L (21-32); CREATININE 0.9 mg/dL (0.7-1.3); GLUCOSE,RANDOM 121 mg/dL (74-106); SGOT/AST 31 U/L (15-37); SGPT/ALT 39 U/L (12-78); TOT PROT 5.5 g/dl (6.4-8.2)
--- NOTE | 2017-08-30 23:40 | HP ---
CHIEF COMPLAINT: abdominal discharge from recent surgical site PCP: Jen Goode HISTORY OF PRESENT ILLNESS: 62 y/o M w/PMH of HTN and recent hospitalization (discharged from [facility] 3 days ago) for incarcerated hernia requiring surgery and anastamosis presents to the ER with foul smelling discharge from surgical site. Pt has noted increasing discharge since yesterday and states the discharge has been foul smelling. Pt also c/o fevers and chills since yesterday. Measured temp of 102 at home today but did not take any medication to alleviate the fever. He has also has had loose BMs every morning for the last 3 days with today being watery but with no blood noted. Pt denies any CP, SOB, nausea, vomiting, and is tolerating diet. Besides drainage pt states he feels well. ER course was notable for: (1) CT abd (2) Flagyl Levaquin (3) Recent Travel: denies PAST MEDICAL HISTORY: HTN, recent hospitalization (discharged 08/27/17) for incarcerated hernia PAST SURGICAL HISTORY: Laparatomy 1978; strangulated hernia s/p laparotomy with small bowel resection and primary anastomosis (08/21/17) Social History: Smoking: Quit 30years ago previous 20pack years of smoking Alcohol: social Drugs: denies Family History: Father passed from [place] at 53 Allergies No Known Allergies Allergy (Verified 08/30/17 17:10) HOME MEDICATIONS: Home Medications Medication Instructions Recorded Aspirin [ASA -] 81 mg PO DAILY 08/21/17 Lisinopril/Hydrochlorothiazide 1 each PO DAILY 08/21/17 [Lisinopril-Hctz 10-12.5 mg Tab] REVIEW OF SYSTEMS CONSTITUTIONAL: +fever Absent: loss of appetite CARDIOVASCULAR: Absent: chest pain RESPIRATORY: Absent: shortness of breath, dyspnea with exertion GASTROINTESTINAL: +loose stools Absent: abdominal pain, abdominal distension, nausea, vomiting, constipation, melena, hematochezia GENITOURINARY: Absent: dysuria, frequency SKIN: +midline abd surigcal incision with reddish/brown drainage NEUROLOGIC: Absent: headache, light headedness, dizziness PHYSICAL EXAMINATION Vital Signs - 24 hr 08/30/17 17:11 Temperature 99.5 F Pulse Rate 102 H Respiratory 16 Rate Blood Pressure 118/56 O2 Sat by Pulse 97 Oximetry (%) GENERAL: Awake, alert, and fully oriented, in no acute distress. HEAD: Normal with no signs of trauma. EYES: Pupils equal, round and reactive to light, extraocular movements intact, sclera anicteric, conjunctiva clear. No lid lag. EARS, NOSE, THROAT: Ears normal, nares patent, oropharynx clear without exudates. Moist mucous membranes. NECK: Normal range of motion, supple without lymphadenopathy, JVD, or masses. LUNGS: Breath sounds equal, clear to auscultation bilaterally. No wheezes, and no crackles. No accessory muscle use. HEART: Regular rate and rhythm, normal S1 and S2 without murmur, rub or gallop. ABDOMEN:+RLQ mild tender to palpation. Midline surgical site with drainage, with some reddish/brown drainage on pad. Soft, not distended, normoactive bowel sounds. MUSCULOSKELETAL: Normal range of motion at all joints. No bony deformities or tenderness. No CVA tenderness. UPPER EXTREMITIES: 2+ pulses, warm, well-perfused. No cyanosis. No clubbing. No peripheral edema. LOWER EXTREMITIES: 2+ pulses, warm, well-perfused. No calf tenderness. No peripheral edema. NEUROLOGICAL: Cranial nerves II-XII intact. Normal speech. Normal gait. PSYCHIATRIC: Cooperative. Good eye contact. Appropriate mood and affect. SKIN: Warm, dry, normal turgor, no rashes or lesions noted, normal capillary refill. Laboratory Results - last 24 hr 08/30/17 08/30/17 08/30/17 17:50 17:50 17:50 WBC 7.8 RBC 3.00 L Hgb 9.8 L Hct 28.2 L MCV 94.0 MCH 32.8 MCHC 34.9 RDW 12.9 Plt Count 321 D MPV 8.2 Neutrophils % 83.9 H D Lymphocytes % 6.6 L D Monocytes % 8.3 Eosinophils % 0.9 Basophils % 0.3 PT with INR 14.80 H INR 1.34 H Sodium Cancelled Potassium Cancelled Chloride Cancelled Carbon Dioxide Cancelled Anion Gap Cancelled BUN Cancelled Creatinine Cancelled Creat Clearance w eGFR Cancelled Random Glucose Cancelled Lactic Acid Calcium Cancelled Total Bilirubin Cancelled AST Cancelled ALT Cancelled Alkaline Phosphatase Cancelled Total Protein Cancelled Albumin Cancelled Blood Type Antibody Screen 09/30/17 09/30/17 09/30/17 17:50 18:35 18:40 WBC RBC Hgb Hct MCV MCH MCHC RDW Plt Count MPV Neutrophils % Lymphocytes % Monocytes % Eosinophils % Basophils % PT with INR INR Sodium 131 L Potassium 3.2 L Chloride 94 L Carbon Dioxide 29 Anion Gap 8 BUN 15 Creatinine 0.9 Creat Clearance w eGFR > 60 Random Glucose 121 H D Lactic Acid 1.0 Calcium 7.9 L Total Bilirubin 0.7 AST 31 ALT 39 Alkaline Phosphatase 95 D Total Protein 5.5 L Albumin 2.1 L Blood Type O POSITIVE Antibody Screen Negative Imaging: CT abdomen: Pending official read. Prelim read shows possible wound dehiscence, 11x8x5 cm abscess ASSESSMENT/PLAN: 62 y/o M w/PMH of HTN and recent hospitalization (discharged 3 days ago from [facility]) for incarcerated hernia requiring small bowel resection and primary anastamosis admitted for intra-abdominal abscess and wound dehiscence. -Wound dehiscence and intra-abdominal abscess -secondary to abscess and possible anastamosis failure -c/w levaquin and metronidazole -f/u blood cultures; lactic acid wnl currently -NPO -IVF - NS -Surgery consulted - Dr. Orlando; spoke with Dr. Orlando who would like ID to see him , c/w abx, and Dr. Orlando will see him in the AM. -f/u official CT abd read -check C. Diff -pain control with morphine prn -HTN -will hold, restart if hypertensive. Currently normotensive. -DVT ppx -SCDs, ambulation -FEN -IVF - NS -Hyponatremia, Hypochloremia - on NS -Hypokalemia - will replete -monitor electrolytes -NPO except for meds -Dispo: -Admit to med/surg; will need surgical evaluation <Gabriele White - Last Filed: 08/31/17 01:15> CHIEF COMPLAINT: PCP: HISTORY OF PRESENT ILLNESS: ER course was notable for: (1) (2) (3) Recent Travel: PAST MEDICAL HISTORY: PAST SURGICAL HISTORY: Social History: Smoking: Alcohol: Drugs: Family History: Allergies No Known Allergies Allergy (Verified 08/30/17 17:10) HOME MEDICATIONS: Home Medications Medication Instructions Recorded Aspirin [ASA -] 81 mg PO DAILY 08/21/17 Lisinopril/Hydrochlorothiazide 1 each PO DAILY 08/21/17 [Lisinopril-Hctz 10-12.5 mg Tab] REVIEW OF SYSTEMS CONSTITUTIONAL: Absent: fever, chills, diaphoresis, generalized weakness, malaise, loss of appetite, weight change HEENT: Absent: rhinorrhea, nasal congestion, throat pain, throat swelling, difficulty swallowing, mouth swelling, ear pain, eye pain, visual changes CARDIOVASCULAR: Absent: chest pain, syncope, palpitations, irregular heart rate, lightheadedness , peripheral edema RESPIRATORY: Absent: cough, shortness of breath, dyspnea with exertion, orthopnea, wheezing, stridor, hemoptysis GASTROINTESTINAL: Absent: abdominal pain, abdominal distension, nausea, vomiting, diarrhea, constipation, melena, hematochezia GENITOURINARY: Absent: dysuria, frequency, urgency, hesitancy, hematuria, flank pain, genital pain MUSCULOSKELETAL: Absent: myalgia, arthralgia, joint swelling, back pain, neck pain SKIN: Absent: rash, itching, pallor HEMATOLOGIC/IMMUNOLOGIC: Absent: easy bleeding, easy bruising, lymphadenopathy, frequent infections ENDOCRINE: Absent: unexplained weight gain, unexplained weight loss, heat intolerance, cold intolerance NEUROLOGIC: Absent: headache, focal weakness or paresthesias, dizziness, unsteady gait, seizure, mental status changes, bladder or bowel incontinence PSYCHIATRIC: Absent: anxiety, depression, suicidal or homicidal ideation, hallucinations. PHYSICAL EXAMINATION Vital Signs - 24 hr 08/31/17 01:14 Temperature 99 F Pulse Rate 89 Respiratory 16 Rate Blood Pressure 128/81 O2 Sat by Pulse 98 Oximetry (%) GENERAL: Awake, alert, and fully oriented, in no acute distress. HEAD: Normal with no signs of trauma. EYES: Pupils equal, round and reactive to light, extraocular movements intact, sclera anicteric, conjunctiva clear. No lid lag. EARS, NOSE, THROAT: Ears normal, nares patent, oropharynx clear without exudates. Moist mucous membranes. NECK: Normal range of motion, supple without lymphadenopathy, JVD, or masses. LUNGS: Breath sounds equal, clear to auscultation bilaterally. No wheezes, and no crackles. No accessory muscle use. HEART: Regular rate and rhythm, normal S1 and S2 without murmur, rub or gallop. ABDOMEN: Soft, nontender, not distended, normoactive bowel sounds, no guarding, no rebound, no masses. No hepatomegaly or splenomegaly. MUSCULOSKELETAL: Normal range of motion at all joints. No bony deformities or tenderness. No CVA tenderness. UPPER EXTREMITIES: 2+ pulses, warm, well-perfused. No cyanosis. No clubbing. No peripheral edema. LOWER EXTREMITIES: 2+ pulses, warm, well-perfused. No calf tenderness. No peripheral edema. NEUROLOGICAL: Cranial nerves II-XII intact. Normal speech. Normal gait. PSYCHIATRIC: Cooperative. Good eye contact. Appropriate mood and affect. SKIN: Warm, dry, normal turgor, no rashes or lesions noted, normal capillary refill. ASSESSMENT/PLAN: <Hai Shaikh - Last Filed: 08/31/17 06:19> Problem List - Problem (1) Intra-abdominal abscess post-procedure Code(s): T81.4XXA - INFECTION FOLLOWING A PROCEDURE, INITIAL ENCOUNTER K65.1 - PERITONEAL ABSCESS Qualifiers: Encounter type: initial encounter Qualified Code(s): T81.4XXA - Infection following a procedure, initial encounter; T81.4XXA - Infection following a procedure, initial encounter; K65.1 - Peritoneal abscess; K65.1 - Peritoneal abscess; K65.1 - Peritoneal abscess (2) Dehiscence of surgical wound Code(s): T81.31XA - DISRUPTION OF EXTERNAL OPERATION (SURGICAL) WOUND, NEC, INIT <Gabriele White - Last Filed: 08/31/17 01:15> Visit type - Emergency Visit Emergency Visit: Yes ED Registration Date: 08/30/17 Care time: The patient presented to the Emergency Department on the above date and was hospitalized for further evaluation of their emergent condition. - New Patient This patient is new to me today: Yes Date on this admission: 08/31/17 - Critical Care Critical Care patient: No <Gabriele White - Last Filed: 08/31/17 01:15>
--- NOTE | 2017-08-31 00:07 | HP ---
CHIEF COMPLAINT: drainage out of surgery wound with bad smell PCP: Davina sidhu MD Surgeon is Dr. Orlando HISTORY OF PRESENT ILLNESS: 62y M hx of htn, presnts with complaint of abd discharge. The pt has a history of recent incarcerated hernia requiring emergenty surgery s/p anastamosis appox 9 days ago, was d/c from the hospital 3 days ago presents with increased discharge from the wound site. The pt states his abdominal wound started discharging some fluid yesterday that was foul smelling, increased discharge today. Pt endorsed fever/chills, and endorses abdominal pain that has bene persistent since the surgery but is not significantly worse. Patient denies any headach, blurry vision, N/V/C, or urinary symptoms. ER course was notable for: (1) EKG: NSR , (2) Levofluxacine 750 , (3)IV fluids NS @ 125 cc/hr Recent Travel: denies PAST MEDICAL HISTORY: HTN, PAST SURGICAL HISTORY: laparotomy Social History: Smoking:previous smoker. Alcohol:sochial Drugs: never Family History: Allergies No Known Allergies Allergy (Verified 08/30/17 17:10) HOME MEDICATIONS: Home Medications Medication Instructions Recorded Aspirin [ASA -] 81 mg PO DAILY 08/21/17 Lisinopril/Hydrochlorothiazide 1 each PO DAILY 08/21/17 [Lisinopril-Hctz 10-12.5 mg Tab] REVIEW OF SYSTEMS CONSTITUTIONAL: Absent: fever, chills, diaphoresis, generalized weakness, malaise, loss of appetite, weight change HEENT: Absent: rhinorrhea, nasal congestion, throat pain, throat swelling, difficulty swallowing, mouth swelling, ear pain, eye pain, visual changes CARDIOVASCULAR: Absent: chest pain, syncope, palpitations, irregular heart rate, lightheadedness , peripheral edema RESPIRATORY: Absent: cough, shortness of breath, dyspnea with exertion, orthopnea, wheezing, stridor, hemoptysis GASTROINTESTINAL: Absent: abdominal pain, abdominal distension, nausea, vomiting, diarrhea since friday , constipation, melena, hematochezia GENITOURINARY: Absent: dysuria, frequency, urgency, hesitancy, hematuria, flank pain, genital pain MUSCULOSKELETAL: Absent: myalgia, arthralgia, joint swelling, back pain, neck pain SKIN: Absent: rash, itching, pallor HEMATOLOGIC/IMMUNOLOGIC: Absent: easy bleeding, easy bruising, lymphadenopathy, frequent infections ENDOCRINE: Absent: unexplained weight gain, unexplained weight loss, heat intolerance, cold intolerance NEUROLOGIC: Absent: headache, focal weakness or paresthesias, dizziness, unsteady gait, seizure, mental status changes, bladder or bowel incontinence PSYCHIATRIC: Absent: anxiety, depression, suicidal or homicidal ideation, hallucinations. Vital Signs (72 hours) 08/30/17 08/31/17 17:11 01:14 Temperature 99.5 F 99 F Pulse Rate 102 H 89 Respiratory 16 16 Rate Blood Pressure 118/56 128/81 O2 Sat by Pulse 97 98 Oximetry (%) PHYSICAL EXAMINATION GENERAL: Awake, alert, and fully oriented, in no acute distress. HEAD: Normal with no signs of trauma. EYES: sclera anicteric, conjunctiva clear. No lid lag. EARS, NOSE, THROAT: Moist mucous membranes. NECK: Normal range of motion, supple without lymphadenopathy, JVD, or masses. LUNGS: Breath sounds equal, clear to auscultation bilaterally. No wheezes, and no crackles. No accessory muscle use. HEART: Regular rate and rhythm, normal S1 and S2 without murmur, rub or gallop. ABDOMEN: Soft, tender to palpation and perqusion RLQ and RMQ , not distended, decreased bowel sounds, no guarding, no rebound, S/P surgey wound with ford in med of abdomen MUSCULOSKELETAL: Normal range of motion at all joints. No bony deformities or tenderness. No CVA tenderness. LOWER EXTREMITIES: 2+ pulses, warm, well-perfused. No calf tenderness. No peripheral edema. NEUROLOGICAL: good mentation SKIN: Warm, dry, no rashes or lesions noted, normal capillary refill. CBC, BMP 08/30/17 17:50 08/30/17 18:[address] abd/pelvis :performed in ER which showed 11 x8x5 cm multiloculated abscess in right upper abdominal quadrant. Extraluminal gas bubbles along right anterior portion of collection. Possible dehiscence /perforation vs extension of infection into mesenteric /omental fat. Slightly thickened small bowel loops ASSESSMENT/PLAN: 62 y/o M w/PMH of HTN and recent hospitalization (discharged 3 days ago from [facility]) for incarcerated hernia requiring small bowel resection and primary anastamosis admitted for intra-abdominal abscess and wound dehiscence. #Wound dehiscence with intra-abdominal abscess * Pt dc from the hospital on 08/21 * return with drainage with yellow foul smelling * CT abdomen shows 11X8X5 cm multiloculated abscess in RUQ with gas bubbles * levaquin and metronidazole started in ED, will continue Abx * IV fluids NS @ 75 CC /hr * pain contol with morphine 2 gm PO Q 4 Hr * wound culture, blood culture , C. diff due to diarrhea * Surgery was contacted and aware of the case and the CT result. * repeat CBC, CMP in AM * NPO till mariajose surgeon see him # Diarrhea, * started 3 days ago,watery with no blood , BM once a day * S/P meropenem use in last hospitalization (DC on Friday ) * C.diff toxin and assay * IV fluids NS @ 75 CC/hr # Anemia , Microcytic secondary to acute blood loss in last surgery vs iron deficiency vs low intake * H/H 9.8/28.2 * Iron studies * monitor #Hypokalemia , [facility]at[facility] 2[facility]2 low oral intake and diarrhea * K 3.2 , replet with 40 K-Dur once * Na 131, NS @ 75CC/hr * repeat BMP in AM #HTN, * on Lisinopril/Hydrochlorothiazide will hold for now,normotenssive , resume when his blood pressure is elevated * Hold ASA for now * # Progh * DVT: SCDS with early ambulations * GI: No needed # FEN: * F: NS @ 75 CC /hr * E: hypokalemia, hyponatremia , will replete and monitor * N: NPO for now except for meds * # Dispo, * Admit to med -surg Visit type - Emergency Visit Emergency Visit: Yes ED Registration Date: 08/30/17 Care time: The patient presented to the Emergency Department on the above date and was hospitalized for further evaluation of their emergent condition. - New Patient This patient is new to me today: Yes Date on this admission: 09/01/17 - Critical Care Critical Care patient: No
[2017-08-31] MEDS ORDERED: morphine CARPU-JECT 2 MG/1 ML DISP.SYRIN IVPUSH PRN (01:19)
--- NOTE | 2017-08-31 01:21 | PN ---
Teaching Attending Note Name of Resident: Hai Shaikh ATTENDING PHYSICIAN STATEMENT I saw and evaluated the patient. I reviewed the resident's note and discussed the case with the resident. Chart, data, imaging reviewed. I agree with the resident's findings and plan as documented with modifications below. SUBJECTIVE: 62y M hx of htn s/p surgery for incarcerated hernia, intestinal anastamosis on , d/c from hospital 08/29 presented with increased discharge, from the wound site, was foul smelling. He had minimal abdominal pain, mainly localized to RLQ. C/o some loose stools since his discharge from hospital. CT abd/pelvis performed in ER which showed 11 x8x5 cm multiloculated abscess in right upper abdominal quadrant. Extraluminal gas bubbles along right anterior portion of collection. Possible dehiscence /perforation vs extension of infection into mesenteric /omental fat. Slightly thickened small bowel loops. Case was discussed with Dr. Orlando from surgery who is aware of CT findings. OBJECTIVE: Last Vital Signs Temp Pulse Resp BP Pulse Ox 99.5 F 102 H 16 118/56 97 08/30/17 17:11 08/30/17 17:11 08/30/17 17:11 08/30/17 17:11 08/30/17 17:11 General - nontoxic appearing, NAD, AAox3, answers questions and follows commands. HEENT at, nc, dry oral mucosa Neck -supple, no masses CV -s1+s2+ RRR Chest - CTA b/l ABdomen decrease BS, midline operative wound extending from umbilicus downward, erythematous with some bloody-serous drainage Ext - no edema or clubbing Abnormal Lab Results 08/30/17 08/30/17 08/30/17 17:50 17:50 18:40 RBC 3.00 L Hgb 9.8 L Hct 28.2 L Neutrophils % 83.9 H D Lymphocytes % 6.6 L D PT with INR 14.80 H INR 1.34 H Sodium 131 L Potassium 3.2 L Chloride 94 L Random Glucose 121 H D Calcium 7.9 L Total Protein 5.5 L Albumin 2.1 L Abdomen/pelvis CT -see above for report ASSESSMENT AND PLAN: #Post op multiloculated abscess in right upper abdominal quadrant. Possible dehiscence /perforation vs extension of infection into mesenteric / omental fat. Dr. Orlando made aware of CT findings and case was discussed with him. Patient is clinically and hemodynamically stable for admission to med/surg S/p Levofloxacin and metronidazole. -admit to med/surg -NPO -IV fluid hydration -Blood cx x2 sent -send swab for culture from wound drainage if any -continue levofloxacin 750mg IV daily and metrondazole 500mg iv q8hrs -local wound care -EKG -ID consult -Surgery consult #Hypokalemia -PO potassium replacement #Diarrhea -send stool for Cdiff PCR #DVT ppx -heparin sc
[2017-08-31] MEDS ORDERED: POTASSIUM CHLORIDE TABS 20 MEQ TABLET.ER (FP) PO ONE ×2 (01:30→12:15)
[2017-08-31] MEDS: SODIUM CHLORIDE 1,000 ML IV SCH ×4 (01:54→21:07)
[2017-08-31] MEDS ORDERED: metroNIDAZOLE 250 MG TABLET PO SCH (05:00)
[2017-08-31] MEDS ORDERED: LEVOFLOXACIN 250 MG TABLET (FP) PO SCH (08:15)
[2017-08-31 08:38] LABS: BASOPHIL 0.4 % (0-2.0); EOSINOPHIL 0.8 % (0-4.5); MCH 32.3 pg (25.7-33.7); MCHC 34.6 g/dl (32.0-35.9); MEAN CELL VOLUME 93.3 fl (80-96); NEUTROPHILS 79.8 % (42.8-82.8); PLATELET COUNT 325 K/MM3 (134-434); RDW 12.9 % (11.9-15.9); WHITE BLOOD COUNT 6.7 K/mm3 (4.0-10.0)
[2017-08-31 08:51] LABS: INR 1.5 (0.82-1.09); PROTHROMBIN TIME (PATIENT) 16.6 SEC (9.98-11.88)
[2017-08-31 08:54] LABS: ACTIVATED PTT 30.5 SECONDS (26.9-34.4)
[2017-08-31 09:02] LABS: ALK PHOS 94 U/L (45-117); ANION GAP 7 (8-16); BILIRUBIN,TOTAL 0.7 mg/dL (0.2-1.0); CALCIUM 7.7 mg/dL (8.5-10.1); CO2 27 mmol/L (21-32); GLUCOSE,RANDOM 90 mg/dL (74-106); PHOSPHOROUS 2.7 mg/dL (2.5-4.9); SGOT/AST 35 U/L (15-37); SGPT/ALT 39 U/L (12-78); TOT PROT 5.4 g/dl (6.4-8.2)
--- NOTE | 2017-08-31 09:54 | EKG ---
Test Reason : Blood Pressure : / mmHG Vent. Rate : 086 BPM Atrial Rate : 086 BPM P-R Int : 144 ms QRS Dur : 084 ms QT Int : 380 ms P-R-T Axes : 063 -13 049 degrees QTc Int : 454 ms NORMAL SINUS RHYTHM NORMAL ECG WHEN COMPARED WITH ECG OF 21-AUG-2017 15:01, NO SIGNIFICANT CHANGE WAS FOUND Confirmed by HAILE CASTREJON MD ([id number]) on 08/31/2017 9:53:47 AM Referred By: Confirmed By:HAILE CASTREJON MD
[2017-08-31] MEDS ORDERED: LEVOFLOXACIN 500 MG TABLET (FP) PO SCH (10:00)
[2017-08-31] MEDS ORDERED: AMINO ACIDS 4.25%/D5W 1,000 ML IV SCH ×2 (11:00→15:45)
--- NOTE | 2017-08-31 11:22 | PN ---
Physical Exam: SUBJECTIVE: Patient seen and examined. No acute events overnight. Pt denies any complaints including n/v/d/c, chest pain, SOB, and dysuria. OBJECTIVE: Vital Signs Period Temp Pulse Resp BP Sys/Jacome Pulse Ox Last 24 Hr 99 F 89 16-16 128/81 98 GENERAL: The patient is awake, alert, and fully oriented, in no acute distress. HEAD: Normal with no signs of trauma. EYES: PERRL, extraocular movements intact, sclera anicteric, conjunctiva clear. No ptosis. ENT: Ears normal, nares patent, oropharynx clear without exudates, moist mucous membranes. NECK: Trachea midline, full range of motion, supple. LUNGS: Breath sounds equal, clear to auscultation bilaterally, no wheezes, no crackles, no accessory muscle use. HEART: Regular rate and rhythm, S1, S2 without murmur, rub or gallop. ABDOMEN: bandage overlying mid-abdomen. soft, minimally tender around incision line, non-distended, no peritoneal signs. Mid-line 8cm incision with ford w/ malodorous, bloody discharge. EXTREMITIES: 2+ pulses, warm, well-perfused, no edema. NEUROLOGICAL: Cranial nerves II through XII grossly intact. Normal speech, gait not observed. PSYCH: Normal mood, normal affect. SKIN: Warm, dry, normal turgor, no rashes or lesions noted Laboratory Results - last 24 hr 08/31/17 08/31/17 08/31/17 08:34 08:34 08:34 WBC 6.7 RBC 2.68 L Hgb 8.7 L D Hct 25.0 L MCV 93.3 MCH 32.3 MCHC 34.6 RDW 12.9 Plt Count 325 MPV 8.0 Neutrophils % 79.8 Lymphocytes % 9.4 D Monocytes % 9.6 Eosinophils % 0.8 Basophils % 0.4 PT with INR 16.60 H INR 1.50 H PTT (Actin FS) 30.5 Sodium 132 L Potassium 3.5 Chloride 98 Carbon Dioxide 27 Anion Gap 7 L BUN 14 Creatinine 1.0 Creat Clearance w eGFR > 60 Random Glucose 90 D Calcium 7.7 L Phosphorus 2.7 Magnesium 2.0 Total Bilirubin 0.7 AST 35 ALT 39 Alkaline Phosphatase 94 Total Protein 5.4 L Albumin 2.0 L Active Medications Generic Name Dose Route Start Last Admin Trade Name Freq PRN Reason Stop Dose Admin Heparin Sodium (Porcine) 5,000 unit 08/31/17 14:00 Heparin - SQ TID SANTOSH Sodium Chloride 1,000 mls @ 125 mls/hr 08/31/17 01:30 08/31/17 09:58 Normal Saline - IV 125 mls/hr ASDIR SANTOSH Administration Amino Acids 1,000 mls @ 42 mls/hr 08/31/17 11:00 Clinimix - IV Q24H SANTOSH Levofloxacin 750 mg 08/31/17 08:15 08/31/17 09:53 Levaquin - PO 750 mg DAILY@06 SANTOSH Administration Metronidazole 500 mg 08/31/17 05:00 08/31/17 05:52 Flagyl - PO 500 mg TID SANTOSH Administration Morphine Sulfate 2 mg 08/31/17 01:19 Morphine Injection - IVPUSH Q4H PRN FEVER OR PAIN EKG: NSR, QTc of 454 ASSESSMENT/PLAN: 62M w/PMH of HTN and recent hospitalization (discharged 3 days ago from [facility]) for incarcerated hernia requiring small bowel resection and primary anastamosis admitted for intra-abdominal abscess and wound dehiscence. #Wound dehiscence with intra-abdominal abscess * wound with bloody, foul smelling drainage * CT abdomen shows 11X8X5 cm multiloculated abscess in RUQ with gas bubbles, f/ u final CT read * continue levaquin and metronidazole * IV fluids NS @ 125 CC /hr * pain control with morphine 2g PO Q4Hr * F/U wound culture and blood culture * Surgery Dr. Orlando was contacted last night and aware of the case and the CT result. Paged him again this am to determine time for surgery, awaiting response. * NPO # Diarrhea * started 3 days ago, watery with no blood, BM once a day * S/P meropenem use in last hospitalization (DC on Friday) * f/u C.diff toxin and assay * NS @ 125 CC/hr # Anemia , Microcytic secondary to acute blood loss in last surgery vs iron deficiency vs low intake * Hgb of 8.7 today, down from 9.8 yesterday * f/u Iron studies * monitor and trend Hgb #Hypokalemia , hyponatremia likely 2/2 low oral intake and diarrhea * K 3.5, replete with 40 K-Dur once * Na 132, NS @ 125 CC/hr * trend BMP #HTN * on Lisinopril/Hydrochlorothiazide will hold for now, BP 120-130/55-80, resume when his blood pressure is elevated * Hold ASA for now # FEN/PPx: * NS @ 125 CC/hr * E: hypokalemia, hyponatremia, will replete and monitor * N: NPO and PPN (clinimix) * DVT: SCDS, heparin held until time of surgery confirmed * GI: None needed -Jose Lan MD PGY1 Visit type - Emergency Visit Emergency Visit: Yes ED Registration Date: 08/30/17 Care time: The patient presented to the Emergency Department on the above date and was hospitalized for further evaluation of their emergent condition. - New Patient This patient is new to me today: Yes Date on this admission: 08/31/17 - Critical Care Critical Care patient: No
--- NOTE | 2017-08-31 11:53 | CON.ID ---
Consult - History of Present Illness Chief Complaint: Drainage from surgical abd wound History of Present Illness: 62y M with history of surgery for incarcerated ventral hernia and anastomosis on 08/21/17 presenting with increased foul-smelling drainage from the lower aspect of surgical wound site. He was discharged on 08/29/17 and noted this in the past few days. States he has been feeling feverish and has occasional chills but reports mild abdominal pain in Rt lower quadrant. Reports 1 loose BM per day since hospital discharge. CT abd/pelvis has been done which showed 11 x8x5 cm multiloculated abscess in right upper abdominal quadrant. Extraluminal gas bubbles along right anterior portion of collection. Possible dehiscence /perforation vs extension of infection into mesenteric /omental fat as well as small bowel wall thickening. Currently he is alert, afebrile, and denies abd pain. Has no other specific complaints. 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 No: AFIB, Aneurysm, Aortic Insufficiency, Aortic Stenosis, CAD, CHF, Deep Vein Thrombosis, Hyperlipdemia, [place], Mitral Insufficiency, Mitral Stenosis, Murmur, Pulmonary Hypertension, Other Pulmonary: No: Asthma, Bronchitis, Cancer, COPD, O2 Dependent, Pneumonia, Previously Intubated, Pulmonary Embolus, Pulmonary Fibrosis, Sleep Apnea, Other Gastrointestinal: Yes: Other (ventral hernia). No: Ascites, Cancer, Constipation, Crohn's Disease, Diverticulitis, Diverticulosis, Esophageal Varices, Gastritis, GERD, GI Bleed, Hemorrhoids, Hiatal Hernia, Inflamatory Bowel Disease, Irritable Bowel Disease, Pancreatitis, Peptic Ulcer Disease, Ulcerative Colitis Hepatobiliary: No: Cirrhosis, Cholelithiasis, Cholecystitis, Choledocholithiasis , Hepatitis A, Hepatitis B, Hepatitis C, Other Renal/: No: Renal Failure, Renal Inusuff, BPH, Cancer, Hematuria, Hemodialysis , Neurogenic Bladder, Renal Calculi, UTI, Other Heme/Onc: No: Anemia, B12 Deficiency, Bleeding Disorder, Cancer, Current Chemotherapy, Current Radiation Therapy, Hemochromatosis, Hypercoaguable State, Myeloproliferative Synd, Sickle Cell Disease, Sickle Cell Trait, Thrombocytopenia, Other Infectious Disease: No: AIDS, C-Diff, Herpes Zoster, HIV, MRSA, STD's, Tuberculosis, VREF, Other Psych: No: Addictions, Anxiety, Bipolar, Depression, Panic, Psychosis, Schizophrenia, Other Musculoskeletal: No: Bursitis, Chronic low back pain, Hemiparesis, Hemiplegia, Osteoarthritis, Paraplegia, Other Rheumatology: No: Fibromyalgia, Gout, Lupus, Rheumatoid Arthritis, Sarcoidosis, Vasculitis, Other ENT: No: Allergic Rhinitis, Sinusitis, Other Endocrine: No: [place]mo's Disease, Pardeep's Disease, Diabetes Insipidus, Diabetes Mellitus, Hyperparathyroidism, Hyperthyroidism, Hypothyroidism, Osteopenia, SIADH, Other Dermatology: No: Basal Cell, Cellulitis, Eczema, Melanoma, Psoriasis, Squamous Cell, Other - Past Surgical History Past Surgical History: Yes: Hernia Repair - Alcohol/Substance Use Hx Alcohol Use: No - Smoking History Smoking history: Former smoker Have you smoked in the past 12 months: No Home Medications - Allergies Allergies/Adverse Reactions: Allergies Allergy/AdvReac Type Severity Reaction Status Date / Time No Known Allergies Allergy Verified 08/30/17 17:10 - Home Medications Home Medications: Ambulatory Orders Aspirin [ASA -] 81 mg PO DAILY 08/21/17 Lisinopril/Hydrochlorothiazide [Lisinopril-Hctz 10-12.5 mg Tab] 1 each PO DAILY 08/21/17 Family Disease History - Family Disease History Family History: Denies Review of Systems - Review of Systems Constitutional: reports: No Symptoms Eyes: reports: No Symptoms HENT: reports: No Symptoms Neck: reports: No Symptoms Cardiovascular: reports: No Symptoms Respiratory: reports: No Symptoms Gastrointestinal: reports: Abdominal Pain (minimal at this time) Genitourinary: reports: No Symptoms Musculoskeletal: reports: No Symptoms Integumentary: reports: Incision (dehiscense in lower aspect of abd wound site with drainage) Neurological: reports: No Symptoms Hematology/Lymphatic: reports: No Symptoms Physical Exam Vital Signs: Vital Signs Temperature 99 F 08/31/17 01:14 Pulse Rate 89 08/31/17 01:14 Respiratory Rate 16 08/31/17 01:14 Blood Pressure 128/81 08/31/17 01:14 O2 Sat by Pulse Oximetry (%) 98 08/31/17 01:14 Constitutional: Yes: No Distress, Calm Eyes: Yes: WNL HENT: Yes: WNL Cardiovascular: Yes: Regular Rate and Rhythm Respiratory: Yes: CTA Bilaterally Gastrointestinal: Yes: Normal Bowel Sounds, Soft, Tenderness (minimal tenderness ) Renal/: Yes: WNL Musculoskeletal: Yes: WNL Extremities: Yes: WNL Edema: No Wound/Incision: Yes: Draining (semipurulent discharge draining from lower abd incision site) Neurological: Yes: Alert, Oriented ...Motor Strength: WNL Psychiatric: Yes: Alert, Oriented Labs: CBC, BMP 08/31/17 08:34 08/31/17 08:34 Assessment/Plan Surgical site infection/ intra-abd abscess s/p Ventral incarcerated hernia repair and anastomosis HTN - d/c Cipro/Flagyl - start Zosyn IV - evaluation of abscess, consider drainage - follow up wound culture results - continue monitor wbc/vitals - case d/w Dr. Orlando
--- NOTE | 2017-08-31 12:33 | CONSULT ---
Consult Consult Specialty:: General Surgery Reason for Consultation:: Postop abdominal wound infection. - History of Present Illness Chief Complaint: Drainage from the abdominal wound, since Friday , 08/29/2017, came to the ER yesterday evening for drainage from the abdominal wound. History of Present Illness: Patient is s/p surgery for strangulated incisional hernia on 08/21/2017, was discharged home tolerating diet. He had strangulated, omentum, and a loop of small intestine , with marked venous congestion of the small bowel mesentery . He was discharged home tolerating diet. Abdominal wound was packed, and approximated with few interrupted ford. He has no h/o fever, no nausea, or vomiting. He has been moving his bowels daily , with one bowel movement a day. 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 No: AFIB, Aneurysm, Aortic Insufficiency, Aortic Stenosis, CAD, CHF, Deep Vein Thrombosis, Hyperlipdemia, [place], Mitral Insufficiency, Mitral Stenosis, Murmur, Pulmonary Hypertension, Other Pulmonary: No: Asthma, Bronchitis, Cancer, COPD, O2 Dependent, Pneumonia, Previously Intubated, Pulmonary Embolus, Pulmonary Fibrosis, Sleep Apnea, Other Gastrointestinal: Yes: Other (ventral hernia). No: Ascites, Cancer, Constipation, Crohn's Disease, Diverticulitis, Diverticulosis, Esophageal Varices, Gastritis, GERD, GI Bleed, Hemorrhoids, Hiatal Hernia, Inflamatory Bowel Disease, Irritable Bowel Disease, Pancreatitis, Peptic Ulcer Disease, Ulcerative Colitis Hepatobiliary: No: Cirrhosis, Cholelithiasis, Cholecystitis, Choledocholithiasis , Hepatitis A, Hepatitis B, Hepatitis C, Other Renal/: No: Renal Failure, Renal Inusuff, BPH, Cancer, Hematuria, Hemodialysis , Neurogenic Bladder, Renal Calculi, UTI, Other Infectious Disease: No: AIDS, C-Diff, Herpes Zoster, HIV, MRSA, STD's, Tuberculosis, VREF, Other Psych: No: Addictions, Anxiety, Bipolar, Depression, Panic, Psychosis, Schizophrenia, Other Musculoskeletal: No: Bursitis, Chronic low back pain, Hemiparesis, Hemiplegia, Osteoarthritis, Paraplegia, Other Rheumatology: No: Fibromyalgia, Gout, Lupus, Rheumatoid Arthritis, Sarcoidosis, Vasculitis, Other ENT: No: Allergic Rhinitis, Sinusitis, Other Endocrine: No: Wise's Disease, [place]'s Disease, Diabetes Insipidus, Diabetes Mellitus, Hyperparathyroidism, Hyperthyroidism, Hypothyroidism, Osteopenia, SIADH, Other Dermatology: No: Basal Cell, Cellulitis, Eczema, Melanoma, Psoriasis, Squamous Cell, Other - Past Surgical History Past Surgical History: Yes: Hernia Repair - Alcohol/Substance Use Hx Alcohol Use: No - Smoking History Smoking history: Former smoker Have you smoked in the past 12 months: No Home Medications - Allergies Allergies/Adverse Reactions: Allergies Allergy/AdvReac Type Severity Reaction Status Date / Time No Known Allergies Allergy Verified 08/30/17 17:10 - Home Medications Home Medications: Ambulatory Orders Aspirin [ASA -] 81 mg PO DAILY 08/21/17 Lisinopril/Hydrochlorothiazide [Lisinopril-Hctz 10-12.5 mg Tab] 1 each PO DAILY 08/21/17 Physical Exam Vital Signs: Vital Signs Temperature 99.1 F 08/31/17 09:19 Pulse Rate 82 08/31/17 09:19 Respiratory Rate 18 08/31/17 09:19 Blood Pressure 119/67 08/31/17 09:19 O2 Sat by Pulse Oximetry (%) 98 08/31/17 09:00 Gastrointestinal: Yes: Other (Drainage from the bottome of the incision , foul smelling purulent fluid. Cultures sent. Lower 2 ford removed. Abdomen is soft , not distended and not tender.) Labs: CBC, BMP 08/31/17 08:34 08/31/17 08:34 Imaging - Results Cat Scan: Report Reviewed, Image Reviewed (? Interloop abscess, and wound infection. No spillage of contrast outside the lumen of the bowel. Discussed with Dr. Lopez.) Assessment/Plan 1)Postoperative wound infection , / dehiscence, 2) Intraabdominal abscess., s/p repair of srangulated small intestine and omentum in a ventral / incisional hernia. two ford removed, pus evacuated , wound irrigated and dresses. Cultures are pending. Antibiotics, Continue oral feeding, ID consultation. will follow.
[2017-08-31] MEDS ORDERED: PIPERACILLIN/TAZOB 3.375 GM 3.375 GM in DEXTROSE 5%-WATER - 50 ML IVPB SCH (13:00)
[2017-08-31] MEDS ORDERED: HEPARIN NA (PORCINE) 5,000 UNITS/ML 1ML VIAL SQ SCH (14:00)
[2017-08-31] MEDS ORDERED: DEXTROSE 5%-WATER - 50 ML IVPB ONE ×2 (14:24→18:08)
[2017-08-31] MEDS ORDERED: PIPERACILLIN/TAZOBACTAM 3.375 GM VIAL IVPB ONE ×2 (14:24→18:08)
[2017-08-31] MEDS: PIPERACILLIN/TAZOB 3.375 GM 3.375 GM in DEXTROSE 5%-WATER - 50 ML IVPB SCH ×2 (14:42→18:35)
--- NOTE | 2017-08-31 15:29 | PN ---
Teaching Attending Note Name of Resident: Jose Lan ATTENDING PHYSICIAN STATEMENT I saw and evaluated the patient. I reviewed the resident's note and discussed the case with the resident. I agree with the resident's findings and plan as documented. SUBJECTIVE:Patient c/o dull lower abdominal pain and foul smelling discharge from Surgical site OBJECTIVE: Middle aged man not in distress c/o mild lower abd pain and discharge Vital Signs Period Temp Pulse Resp BP Sys/Jacome Pulse Ox Last 24 Hr 99 F-99.5 F 82-102 16-18 118-128/56-81 97-98 HEENT: Mm moist, anemia, PERRLA, EOMI NECK: No JVd, No Bruit CHEST: CTA B/L CVS: S1S2 R no m/g/r ABD: Mild distention, infected wound and ulcerated area at lower end of the incision, foul smelling , push discharge with surroundings indurated area. 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 Extraluminal gas bubbles along right anterior portion of collection. Possible dehiscence /perforation vs extension of infection into mesenteric / omental fat as well as small bowel wall thickening. ASSESSMENT AND PLAN:[age]y M with history of surgery for incarcerated ventral hernia and anastomosis on 08/21/17 presenting with increased foul-smelling drainage from the lower aspect of surgical wound site. CT abd with PO and IV contrast shows 11 x8x5 cm multinucleated abscess in right upper abdominal quadrant. Extraluminal gas bubbles along right anterior portion of collection. Possible dehiscence /perforation vs extension of infection into mesenteric / omental fat as well as small bowel wall thickening. Active Medications Generic Name Dose Route Start Last Admin Trade Name Freq PRN Reason Stop Dose Admin Sodium Chloride 1,000 mls @ 42 mls/hr 08/31/17 13:00 08/31/17 14:42 Normal Saline - IV Not Given ASDIR SANTOSH Piperacillin Sod/Tazobactam 50 mls @ 100 mls/hr 08/31/17 14:00 08/31/17 14:42 Sod 3.375 gm/ Dextrose IVPB 100 mls/hr Q8H-IV SANTOSH Administration Amino Acids 1,000 mls @ 84 mls/hr 08/31/17 15:45 Clinimix - IV Q12H SANTOSH Pantoprazole Sodium 40 mg/ 100 mls @ 200 mls/hr 08/31/17 15:45 Sodium Chloride IVPB DAILY SANTOSH Morphine Sulfate 2 mg 08/31/17 01:19 Morphine Injection - IVPUSH Q4H PRN FEVER OR PAIN Ondansetron HCl 4 mg 08/31/17 15:40 Zofran Injection IVPB Q6H PRN NAUSEA Problem List - Problems (1) Intra-abdominal abscess post-procedure Assessment/Plan: Post OP abdominal abscess: Patient has extensive infectious process with loculated abscess and inflammation of surrounding tissue, evaluated by ID and Surgery consult, bed side I and D performed, patient is on IV Zosyn will F/U clinical course, IV Hydration, Tylenol IN , NPO Code(s): T81.4XXA - INFECTION FOLLOWING A PROCEDURE, INITIAL ENCOUNTER K65.1 - PERITONEAL ABSCESS Qualifiers: Encounter type: initial encounter Qualified Code(s): T81.4XXA - Infection following a procedure, initial encounter; T81.4XXA - Infection following a procedure, initial encounter; K65.1 - Peritoneal abscess; K65.1 - Peritoneal abscess; K65.1 - Peritoneal abscess (2) Malnutrition Assessment/Plan: Sr albumin 2.0 patient is NPO will satart clinimix 84 CC/HR Code(s): E46 - UNSPECIFIED PROTEIN-CALORIE MALNUTRITION (3) HTN (hypertension) Assessment/Plan: Hold PO Medication Code(s): I10 - ESSENTIAL (PRIMARY) HYPERTENSION
[2017-08-31] MEDS ORDERED: ONDANSETRON 4 MG/2 ML VIAL IVPB PRN (15:40)
[2017-08-31] MEDS ORDERED: PIPERACILLIN/TAZOB 3.375 GM/50 ML PRE-DOCKED IVPB SCH (18:00)
[2017-08-31] MEDS: PANTOPRAZOLE SODIUM 40 MG in SODIUM CHLORIDE 100 ML IVPB SCH (18:35)
[2017-09-01] MEDS ORDERED: DEXTROSE 5%-WATER - 50 ML IVPB ONE ×3 (01:58→17:17)
[2017-09-01] MEDS ORDERED: PIPERACILLIN/TAZOBACTAM 3.375 GM VIAL IVPB ONE ×3 (01:58→17:17)
[2017-09-01] MEDS: PIPERACILLIN/TAZOB 3.375 GM 3.375 GM in DEXTROSE 5%-WATER - 50 ML IVPB SCH ×3 (02:13→17:40)
[2017-09-01 07:50] LABS: BASOPHIL 0.7 % (0-2.0); EOSINOPHIL 2.2 % (0-4.5); MCH 32.8 pg (25.7-33.7); MCHC 34.8 g/dl (32.0-35.9); MEAN CELL VOLUME 94.3 fl (80-96); NEUTROPHILS 72.5 % (42.8-82.8); PLATELET COUNT 316 K/MM3 (134-434); RDW 12.7 % (11.9-15.9); WHITE BLOOD COUNT 4.1 K/mm3 (4.0-10.0)
[2017-09-01 08:19] LABS: ALK PHOS 87 U/L (45-117); ANION GAP 9 (8-16); BILIRUBIN,TOTAL 1.1 mg/dL (0.2-1.0); CO2 25 mmol/L (21-32); CREATININE 0.9 mg/dL (0.7-1.3); GLUCOSE,RANDOM 86 mg/dL (74-106); PHOSPHOROUS 3.5 mg/dL (2.5-4.9); SGOT/AST 28 U/L (15-37); SGPT/ALT 34 U/L (12-78); TOT PROT 5.4 g/dl (6.4-8.2)
[2017-09-01] MEDS: PANTOPRAZOLE SODIUM 40 MG in SODIUM CHLORIDE 100 ML IVPB SCH (09:26)
--- NOTE | 2017-09-01 09:26 | PN ---
Physical Exam: SUBJECTIVE: Patient seen and examined Wound still draining. OBJECTIVE: Vital Signs Period Temp Pulse Resp BP Sys/Jacome Pulse Ox Last 24 Hr 96.8 F-99.9 F 71-85 18-20 124-148/55-84 99 GENERAL: The patient is awake, alert, and fully oriented, in no acute distress. HEAD: Normal with no signs of trauma. EYES: PERRL, extraocular movements intact, sclera anicteric, conjunctiva clear. No ptosis. ENT: Ears normal, nares patent, oropharynx clear without exudates, moist mucous membranes. NECK: Trachea midline, full range of motion, supple. LUNGS: Breath sounds equal, clear to auscultation bilaterally, no wheezes, no crackles, no accessory muscle use. HEART: Regular rate and rhythm, S1, S2 without murmur, rub or gallop. ABDOMEN: Soft, nontender, Packed dressing over midline draining brownish fluid, nondistended, normoactive bowel sounds, no guarding, no rebound, no hepatosplenomegaly, no masses. EXTREMITIES: 2+ pulses, warm, well-perfused, no edema. NEUROLOGICAL: Cranial nerves II through XII grossly intact. Normal speech, gait not observed. PSYCH: Normal mood, normal affect. SKIN: Warm, dry, normal turgor, no rashes or lesions noted Laboratory Results - last 24 hr 09/01/17 09/01/17 09/01/17 07:00 07:00 07:00 WBC 4.1 D RBC 2.52 L Hgb 8.3 L Hct 23.7 L MCV 94.3 MCH 32.8 MCHC 34.8 RDW 12.7 Plt Count 316 MPV 8.0 Neutrophils % 72.5 Lymphocytes % 14.1 D Monocytes % 10.5 H Eosinophils % 2.2 D Basophils % 0.7 Sodium 135 L Potassium 3.6 Chloride 101 Carbon Dioxide 25 Anion Gap 9 BUN 11 D Creatinine 0.9 Creat Clearance w eGFR > 60 Random Glucose 86 Calcium 8.0 L Phosphorus 3.5 D Magnesium 2.0 Ferritin 1265.097 H Total Bilirubin 1.1 H D AST 28 ALT 34 Alkaline Phosphatase 87 Total Protein 5.4 L Albumin 2.0 L Microbiology 08/31/17 08:20 Abdomen Gram Stain - Final 08/31/17 08:20 Abdomen Wound Culture - Preliminary Lactose Fermenting Neg Bacilli Group D Strep Or Entero Coccus Staphylococcus Coagulase Neg Active Medications Generic Name Dose Route Start Last Admin Trade Name Freq PRN Reason Stop Dose Admin Sodium Chloride 1,000 mls @ 42 mls/hr 08/31/17 13:00 08/31/17 21:07 Normal Saline - IV 42 mls/hr ASDIR SANTOSH Administration Piperacillin Sod/Tazobactam 50 mls @ 100 mls/hr 08/31/17 14:00 09/01/17 02:13 Sod 3.375 gm/ Dextrose IVPB 100 mls/hr Q8H-IV SANTOSH Administration Pantoprazole Sodium 40 mg/ 100 mls @ 200 mls/hr 08/31/17 15:45 08/31/17 18:35 Sodium Chloride IVPB 200 mls/hr DAILY SANTOSH Administration Morphine Sulfate 2 mg 08/31/17 01:19 Morphine Injection - IVPUSH Q4H PRN FEVER OR PAIN Ondansetron HCl 4 mg 08/31/17 15:40 Zofran Injection IVPB Q6H PRN NAUSEA ASSESSMENT/PLAN: 62y M with PMHX of HTN, history of surgery for incarcerated ventral hernia and anastomosis on 08/21/17 presenting with increased foul-smelling drainage from the lower aspect of surgical wound site and found to have RUQ abscess #Wound abscess Day 2 on Zosyn Awaitng sensitivities of wound culture Continue drainage ( from lower aspect of wound) Pain management Stop IV fluid Continue liberate oral fluids #Anemia Repeat CBC- stable Pending iron studies Monitor #Hypokalemia Resolved BMP #HTN Controlled off Lisinopril-HCTZ Monitor #FEN Oral fluids Monitor electrolytes and replete as needed Continue diet #Prophylaxis Discontinue protonix Hold heparin_ anemic #Dispo Med surg Visit type - Emergency Visit Emergency Visit: Yes ED Registration Date: 08/30/17 Care time: The patient presented to the Emergency Department on the above date and was hospitalized for further evaluation of their emergent condition. - New Patient This patient is new to me today: No - Critical Care Critical Care patient: No - Discharge Referral Referred to [facility] No
--- NOTE | 2017-09-01 12:05 | PN ---
Progress Note, Physician - Current Medication List Current Medications: Active Medications Piperacillin Sod/Tazobactam (Sod 3.375 gm/ Dextrose) 50 mls @ 100 mls/hr IVPB Q8H-IV SANTOSH Last Admin: 09/01/17 09:27 Dose: 100 mls/hr Pantoprazole Sodium 40 mg/ (Sodium Chloride) 100 mls @ 200 mls/hr IVPB DAILY SANTOSH Last Admin: 09/01/17 09:26 Dose: 200 mls/hr Morphine Sulfate (Morphine Injection -) 2 mg IVPUSH Q4H PRN PRN Reason: FEVER OR PAIN Ondansetron HCl (Zofran Injection) 4 mg IVPB Q6H PRN PRN Reason: NAUSEA - Objective Vital Signs: Vital Signs Temperature 98.1 F 09/01/17 06:00 Pulse Rate 77 09/01/17 06:00 Respiratory Rate 18 09/01/17 06:00 Blood Pressure 133/55 09/01/17 06:00 O2 Sat by Pulse Oximetry (%) 99 08/31/17 21:00 Labs: CBC, BMP 09/01/17 07:00 09/01/17 07:00 INR, PTT INR 1.50 (0.82-1.09) H 08/31/17 08:34 Assessment/Plan Surgery: Patient is afebrile, WBC is normal. He is not nauseous or vomiting. 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 intraabdominal abscess , communicating to the outside. No sign of intestinal dehiscence on radiological study. He is tolerating oral feeding. Abdominal dresiing , changed, wound irrigated, and dressed. Brownish fluid draining from the wound. Continue antibiotics, and wound care. follow up abdominal imaging in 3-4 day. If persistent intraabdominal collection is seen , will plan Ct guided drainage. Hematocrit is 34. Progress diet. Low residue diet. Cultures are pending. Continue antibiotics.
--- NOTE | 2017-09-01 13:04 | PN ---
Progress Note, Physician History of Present Illness: patient stable doing well dressing done patinet known to me comes with finding of intraabd collection - Current Medication List Current Medications: Active Medications Piperacillin Sod/Tazobactam (Sod 3.375 gm/ Dextrose) 50 mls @ 100 mls/hr IVPB Q8H-IV SANTOSH Last Admin: 09/01/17 09:27 Dose: 100 mls/hr Pantoprazole Sodium 40 mg/ (Sodium Chloride) 100 mls @ 200 mls/hr IVPB DAILY SANTOSH Last Admin: 09/01/17 09:26 Dose: 200 mls/hr Morphine Sulfate (Morphine Injection -) 2 mg IVPUSH Q4H PRN PRN Reason: FEVER OR PAIN Ondansetron HCl (Zofran Injection) 4 mg IVPB Q6H PRN PRN Reason: NAUSEA - Objective Vital Signs: Vital Signs Temperature 98.4 F 09/01/17 10:00 Pulse Rate 84 09/01/17 10:00 Respiratory Rate 18 09/01/17 10:00 Blood Pressure 112/65 09/01/17 10:00 O2 Sat by Pulse Oximetry (%) 99 08/31/17 21:00 Constitutional: Yes: No Distress, Calm Cardiovascular: Yes: Regular Rate and Rhythm Respiratory: Yes: Regular, CTA Bilaterally Gastrointestinal: Yes: Normal Bowel Sounds, Soft, Other (distension) Musculoskeletal: Yes: WNL Extremities: Yes: WNL Neurological: Yes: Alert, Oriented Psychiatric: Yes: Alert, Oriented Labs: CBC, BMP 09/01/17 07:00 09/01/17 07:00 INR, PTT INR 1.50 (0.82-1.09) H 08/31/17 08:34 - ....Imaging Cat Scan: Report Reviewed, Image Reviewed Assessment/Plan Surgical site infection/ intra-abd abscess s/p Ventral incarcerated hernia repair and anastomosis HTN plan conintue abx continue to monitor repeat ct scan will be needed might need drainage if does not improve
[2017-09-01] MEDS ORDERED: POTASSIUM CHLORIDE ORAL LIQUID 20 MEQ/15 ML PO ONE (13:27)
--- NOTE | 2017-09-01 13:29 | PN ---
Teaching Attending Note Name of Resident: Norma Sales ATTENDING PHYSICIAN STATEMENT I saw and evaluated the patient. I reviewed the resident's note and discussed the case with the resident. I agree with the resident's findings and plan as documented. SUBJECTIVE:requesting to eat regular food. states he has no pain but continues to have copious drainage from abdominal wound worse on movement. unable to states if blood present. denies CP, SOB, fever, chills, N/V/C/D, 1 loose BM 2 days ago. no bm since OBJECTIVE: Last Vital Signs Temp Pulse Resp BP Pulse Ox 98.4 F 84 18 112/65 99 09/01/17 10:00 09/01/17 10:00 09/01/17 10:00 09/01/17 10:00 08/31/17 21:00 General NAD CV S1 S2 RRR no mumrur/rub/gallop Lungs CTA B/L no wheezing/rales/rhonchi Abdomen midline incision with ford intact. 1 cm opening with brownish discharge. non tender no erythema. soft NT/ND ASSESSMENT AND PLAN: 62y M hx of htn s/p surgery for incarcerated hernia, intestinal anastamosis on , d/c from hospital 08/29 presented with increased discharge and found to have multinucleated abscess (11x8.5cm) 1. Intrabdominal abcess- s/p several ford removed to allow drainage from abscess which is communicating to the abdominal wall. continues to have copious drainage. Wcx obtained and awaiting report. will need repeat CT scan in 3-4 days to further evaluate if improving or will need CT guided drainage. on Zosyn day 2. tolerating liquid diet. ID and surgery on board. f/u Cx. pain control 2. Diarrhea- improved but not eating. cdiff negative. will start lactobacillus. d/c protonix 3. hypoalbuminemia- started on liquid diet yesterday. started on ensures. start prosource. nutrition consult 4. hyponatremia- resolved 5. hypokalemia- likely due to poor oral intake. will give k po. 6. Normocytic anemia- slowly trending down. concern may be bleeding from site. repeat CBC, check iron studies. no indication for transfusion at this time. 7. DVT ppx- hold anticoagulation in setting of anemia- SCD
[2017-09-01] MEDS: LACTOBACILLUS ACIDOPHILUS 1 EACH TAB (FP) PO SCH (14:38)
[2017-09-01 15:37] LABS: BASOPHIL 0.6 % (0-2.0); EOSINOPHIL 2.5 % (0-4.5); MCH 32.6 pg (25.7-33.7); MCHC 34.3 g/dl (32.0-35.9); MEAN CELL VOLUME 95.3 fl (80-96); MEAN PLT VOLUME 8.2 fl (7.5-11.1); NEUTROPHILS 73.6 % (42.8-82.8); PLATELET COUNT 359 K/MM3 (134-434); WHITE BLOOD COUNT 4.7 K/mm3 (4.0-10.0)
[2017-09-01] MEDS: AMINO ACIDS/PROTEIN HYDROLYS 30 ML LIQUID.PKT PO SCH (17:39)
[2017-09-02] MEDS ORDERED: DEXTROSE 5%-WATER - 50 ML IVPB ONE ×4 (01:13→21:04)
[2017-09-02] MEDS ORDERED: PIPERACILLIN/TAZOBACTAM 3.375 GM VIAL IVPB ONE ×4 (01:13→21:03)
[2017-09-02] MEDS: PIPERACILLIN/TAZOB 3.375 GM 3.375 GM in DEXTROSE 5%-WATER - 50 ML IVPB SCH ×3 (01:32→17:00)
[2017-09-02 07:36] LABS: BASOPHIL 0.7 % (0-2.0); EOSINOPHIL 2.8 % (0-4.5); MCH 32.5 pg (25.7-33.7); MCHC 34.6 g/dl (32.0-35.9); MEAN CELL VOLUME 93.9 fl (80-96); MEAN PLT VOLUME 8.1 fl (7.5-11.1); NEUTROPHILS 70.9 % (42.8-82.8); PLATELET COUNT 362 K/MM3 (134-434); RDW 12.9 % (11.9-15.9); WHITE BLOOD COUNT 4.5 K/mm3 (4.0-10.0)
[2017-09-02 08:09] LABS: SERUM IRON 15 ug/dL (38-169); TOTAL IRON BINDING CAPACITY 154 ug/dL (250-450); TRANSFERRIN 134 mg/dL (200-370); UIBC 139 ug/dL (111-343)
[2017-09-02 08:22] LABS: ANION GAP 9 (8-16); CALCIUM 8.3 mg/dL (8.5-10.1); CO2 26 mmol/L (21-32); GLUCOSE,RANDOM 87 mg/dL (74-106)
[2017-09-02] MEDS: AMINO ACIDS/PROTEIN HYDROLYS 30 ML LIQUID.PKT PO SCH ×2 (08:58→17:00)
[2017-09-02] MEDS: LACTOBACILLUS ACIDOPHILUS 1 EACH TAB (FP) PO SCH (08:59)
--- NOTE | 2017-09-02 11:07 | PN ---
Progress Note, Physician History of Present Illness: 1) Postoperative wound infection, 2) Intraabdominal abscess, 3) abdominal wall dehiscence, 4) hypoalbminemia, malnourushed , secondary to sepsis, 5) Anemia - Current Medication List Current Medications: Active Medications Amino Acids (Prosource No Carb Liquid Pkt) 30 ml PO BID@0800,1730 [facility] Last Admin: 09/02/17 08:58 Dose: 30 ml Piperacillin Sod/Tazobactam (Sod 3.375 gm/ Dextrose) 50 mls @ 100 mls/hr IVPB Q8H-IV [facility] Last Admin: 09/02/17 08:59 Dose: 100 mls/hr Lactobacillus Acidophilus (Bacid -) 1 tab PO DAILY [facility] Last Admin: 09/02/17 08:59 Dose: 1 tab Morphine Sulfate (Morphine Injection -) 2 mg IVPUSH Q4H PRN PRN Reason: FEVER OR PAIN Ondansetron HCl (Zofran Injection) 4 mg IVPB Q6H PRN PRN Reason: NAUSEA - Objective Vital Signs: Vital Signs Temperature 98.2 F 09/02/17 10:47 Pulse Rate 83 09/02/17 10:47 Respiratory Rate 20 09/02/17 10:47 Blood Pressure 121/69 09/02/17 10:47 O2 Sat by Pulse Oximetry (%) 98 09/01/17 20:25 Labs: CBC, BMP 09/02/17 06:30 09/02/17 06:30 INR, PTT INR 1.50 (0.82-1.09) H 08/31/17 08:34 Problem List - Problems (1) Dehiscence of surgical wound Code(s): T81.31XA - DISRUPTION OF EXTERNAL OPERATION (SURGICAL) WOUND, NEC, INIT Qualifiers: Encounter type: subsequent encounter Qualified Code(s): T81.31XD - Disruption of external operation (surgical) wound, not elsewhere classified, subsequent encounter; T81.31XD - Disruption of external operation (surgical) wound, not elsewhere classified, subsequent encounter (2) Wound dehiscence Code(s): T81.30XA - DISRUPTION OF WOUND, UNSPECIFIED, INITIAL ENCOUNTER (3) Intra-abdominal abscess post-procedure Code(s): T81.4XXA - INFECTION FOLLOWING A PROCEDURE, INITIAL ENCOUNTER K65.1 - PERITONEAL ABSCESS Qualifiers: Encounter type: initial encounter Qualified Code(s): T81.4XXA - Infection following a procedure, initial encounter; T81.4XXA - Infection following a procedure, initial encounter; K65.1 - Peritoneal abscess; K65.1 - Peritoneal abscess; K65.1 - Peritoneal abscess (4) Peritoneal abscess Code(s): K65.1 - PERITONEAL ABSCESS (5) Malnutrition Code(s): E46 - UNSPECIFIED PROTEIN-CALORIE MALNUTRITION Qualifiers: Malnutrition type: protein-calorie malnutrition Protein-calorie malnutrition severity: severe Qualified Code(s): E43 - Unspecified severe protein-calorie malnutrition; E43 - Unspecified severe protein-calorie malnutrition; E43 - Unspecified severe protein-calorie malnutrition (6) Anemia Code(s): D64.9 - ANEMIA, UNSPECIFIED Qualifiers: Anemia type: other cause Assessment/Plan Continue wound care, dressing changed, wound irrigated. There is still drainage of brownish pus, from the wound. No sign of evisceration. Having bowel movements and tolerating feeding. Wound culture growing Enterococcus, gram negative bacilli, and staph coagulase negative, and beta strep. Will follow up with abdominal CT scan on to assess intraabdominal abscess. Continue antibiotics. Nutritional supplements, Wound care , antibiotics to control infection , Patient is explained.
--- NOTE | 2017-09-02 13:23 | PN ---
Progress Note, Physician History of Present Illness: stable no new issues patient without any complaints - Current Medication List Current Medications: Active Medications Amino Acids (Prosource No Carb Liquid Pkt) 30 ml PO BID@0800,1730 [facility] Last Admin: 09/02/17 08:58 Dose: 30 ml Piperacillin Sod/Tazobactam (Sod 3.375 gm/ Dextrose) 50 mls @ 100 mls/hr IVPB Q8H-IV [facility] Last Admin: 09/02/17 08:59 Dose: 100 mls/hr Lactobacillus Acidophilus (Bacid -) 1 tab PO DAILY [facility] Last Admin: 09/02/17 08:59 Dose: 1 tab Morphine Sulfate (Morphine Injection -) 2 mg IVPUSH Q4H PRN PRN Reason: FEVER OR PAIN Ondansetron HCl (Zofran Injection) 4 mg IVPB Q6H PRN PRN Reason: NAUSEA - Objective Vital Signs: Vital Signs Temperature 98.2 F 09/02/17 10:47 Pulse Rate 83 09/02/17 10:47 Respiratory Rate 20 09/02/17 10:47 Blood Pressure 121/69 09/02/17 10:47 O2 Sat by Pulse Oximetry (%) 99 09/02/17 09:00 Constitutional: Yes: No Distress, Calm Cardiovascular: Yes: Regular Rate and Rhythm Respiratory: Yes: Regular, CTA Bilaterally Gastrointestinal: Yes: Soft, Other (driange from the wound) Musculoskeletal: Yes: WNL Extremities: Yes: WNL Wound/Incision: Yes: Dressing Dry and Intact, Other Neurological: Yes: Alert, Oriented Psychiatric: Yes: Alert, Oriented Labs: CBC, BMP 09/02/17 06:30 09/02/17 06:30 INR, PTT INR 1.50 (0.82-1.09) H 08/31/17 08:34 Assessment/Plan Surgical site infection/ intra-abd abscess s/p Ventral incarcerated hernia repair and anastomosis HTN plan conintue abx continue to monitor discussed the case with surgeon according to surgery please get a ct scan on if the collection does not improve will need drainage
[2017-09-02] MEDS ORDERED: FERROUS GLUCONATE 324 MG TAB (FP) PO SCH ×2 (14:00→22:00)
--- NOTE | 2017-09-02 14:06 | PN ---
Physical Exam: SUBJECTIVE: Patient seen and examined Asking about soft foods. Passed loose stool this am. OBJECTIVE: Vital Signs Period Temp Pulse Resp BP Sys/Jacome Pulse Ox Last 24 Hr 98.2 F-99.1 F 66-83 18-20 109-130/64-78 98-99 GENERAL: The patient is awake, alert, and fully oriented, in no acute distress. HEAD: Normal with no signs of trauma. EYES: PERRL, extraocular movements intact, sclera anicteric, conjunctiva clear. No ptosis. ENT: Ears normal, nares patent, oropharynx clear without exudates, moist mucous membranes. NECK: Trachea midline, full range of motion, supple. LUNGS: Breath sounds equal, clear to auscultation bilaterally, no wheezes, no crackles, no accessory muscle use. HEART: Regular rate and rhythm, S1, S2 without murmur, rub or gallop. ABDOMEN: Soft, nontender, Packed dressing over midline draining brownish fluid, nondistended, normoactive bowel sounds, no guarding, no rebound, no hepatosplenomegaly, no masses. EXTREMITIES: 2+ pulses, warm, well-perfused, no edema. NEUROLOGICAL: Cranial nerves II through XII grossly intact. Normal speech, gait not observed. PSYCH: Normal mood, normal affect. SKIN: Warm, dry, normal turgor, no rashes or lesions noted Laboratory Results - last 24 hr 09/01/17 09/01/17 09/02/17 07:00 15:00 06:30 WBC 4.7 4.5 RBC 2.80 L 2.62 L Hgb 9.1 L 8.5 L Hct 26.7 L 24.6 L MCV 95.3 93.9 MCH 32.6 32.5 MCHC 34.3 34.6 RDW 13.0 12.9 Plt Count 359 362 MPV 8.2 8.1 Neutrophils % 73.6 70.9 Lymphocytes % 12.2 14.7 D Monocytes % 11.1 H 10.9 H Eosinophils % 2.5 2.8 Basophils % 0.6 0.7 Sodium Potassium Chloride Carbon Dioxide Anion Gap BUN Creatinine Random Glucose Calcium Iron 15 L TIBC 154 L Iron Saturation 10 L Transferrin 134 L 09/02/17 06:30 WBC RBC Hgb Hct MCV MCH MCHC RDW Plt Count MPV Neutrophils % Lymphocytes % Monocytes % Eosinophils % Basophils % Sodium 135 L Potassium 3.8 Chloride 100 Carbon Dioxide 26 Anion Gap 9 BUN 7 D Creatinine 1.0 Random Glucose 87 Calcium 8.3 L Iron TIBC Iron Saturation Transferrin Microbiology 08/31/17 08:20 Abdomen Gram Stain - Final 08/31/17 08:20 Abdomen Gram Stain - Final 08/31/17 08:20 Abdomen Wound Culture - Preliminary Lactose Fermenting Neg Bacilli Group D Strep Or Entero Coccus Staphylococcus Coagulase Neg 08/31/17 08:20 Abdomen Wound Culture - Preliminary Escherichia Coli Group D Strep Or Entero Coccus Staphylococcus Coagulase Neg Active Medications Generic Name Dose Route Start Last Admin Trade Name Freq PRN Reason Stop Dose Admin Amino Acids 30 ml 09/01/17 17:30 09/02/17 08:58 Prosource No Carb Liquid Pkt PO 30 ml BID@0800,1730 [facility] Administration Ferrous Gluconate 324 mg 09/02/17 14:00 Fergon - PO DAILY [facility] Piperacillin Sod/Tazobactam 50 mls @ 100 mls/hr 08/31/17 14:00 09/02/17 08:59 Sod 3.375 gm/ Dextrose IVPB 100 mls/hr Q8H-IV [facility] Administration Lactobacillus Acidophilus 1 tab 09/01/17 13:30 09/02/17 08:59 Bacid - PO 1 tab DAILY [facility] Administration Morphine Sulfate 2 mg 08/31/17 01:19 Morphine Injection - IVPUSH Q4H PRN FEVER OR PAIN Ondansetron HCl 4 mg 08/31/17 15:40 Zofran Injection IVPB Q6H PRN NAUSEA ASSESSMENT/PLAN: 62y M with PMHX of HTN, history of surgery for incarcerated ventral hernia and anastomosis on 08/21/17 presenting with increased foul-smelling drainage from the lower aspect of surgical wound site and found to have RUQ abscess #Wound abscess Day 3 on Zosyn Lester-sensitive wound culture Continue drainage ( from lower aspect of wound) Pain management Continue liberate oral fluids #Anemia Mixed Iron deficiency and ACD picture Ferrous sulphate Monitor CBC #Protein Energy Malnutrition On soft diet On nutritonal supplement #Hypokalemia Resolved BMP #HTN Controlled off Lisinopril-HCTZ Monitor #FEN Oral fluids Monitor electrolytes and replete as needed Continue diet #Prophylaxis Hold protonix Resume heparin #Dispo Med surg Visit type - Emergency Visit Emergency Visit: Yes ED Registration Date: 08/30/17 Care time: The patient presented to the Emergency Department on the above date and was hospitalized for further evaluation of their emergent condition. - New Patient This patient is new to me today: No - Critical Care Critical Care patient: No - Discharge Referral Referred to [facility] No
[2017-09-02] MEDS ORDERED: DIPHENOXYLATE 2.5/ATROPINE.025 1 COMBO TABLET PO PRN (16:07)
[2017-09-02] MEDS ORDERED: DIPHENOXYLATE 2.5/ATROPINE.025 1 COMBO TABLET PO ONE (16:07)
--- NOTE | 2017-09-02 16:09 | PN ---
Teaching Attending Note Name of Resident: Norma Sales ATTENDING PHYSICIAN STATEMENT I saw and evaluated the patient. I reviewed the resident's note and discussed the case with the resident. I agree with the resident's findings and plan as documented. SUBJECTIVE:requesting to eat regular consistency food. continues to have loose BM. denies CP, SOB, fever, chills, abdominal pain. states he continues to have leaking on bandage but is less than yesterday. OBJECTIVE: Last Vital Signs Temp Pulse Resp BP Pulse Ox 99.6 F 87 18 125/69 99 09/02/17 15:40 09/02/17 15:40 09/02/17 15:40 09/02/17 15:40 09/02/17 09:00 General NAD Abdomen midline incision with ford intact. 1 cm opening with minimal brownish discharge. non tender no erythema. soft NT/ND ASSESSMENT AND PLAN: 62y M hx of htn s/p surgery for incarcerated hernia, intestinal anastamosis on , d/c from hospital 08/29 presented with increased discharge and found to have multinucleated abscess (11x8.5cm) 1. Intrabdominal abcess- s/p several ford removed to allow drainage from abscess which is communicating to the abdominal wall. drainage is noticeably less than yesterday. Plan for CT scan to evaluate if abscess requires drainage. f/u Wcx. on syn day 3. will d/w surgery about upgrading diet. ID and surgery on board. f/u Cx. pain control 2. Diarrhea- cdiff negative. will start lomotil and lactobacillus. hopefully will improve as diet is advanced. 3. hypoalbuminemia- with poor wound healing. significant weight loss. cont ensures and prosource. nutrition consult 4. hyponatremia- resolved 5. hypokalemia- resolved 6. Normocytic anemia- combination of anemia of chronic disease and iron deficiency anemia. slowly trending down. repeat in evening improved. continues to flucuate. start iron supplements. no indication for transfusion at this time. 7. DVT ppx- hold anticoagulation in setting of anemia- SCD
[2017-09-02] MEDS ORDERED: FERROUS SO4 325 MG TABLET (FP) PO ONE (16:36)
[2017-09-02] MEDS: HEPARIN NA (PORCINE) 5,000 UNITS/ML 1ML VIAL SQ SCH ×2 (16:59→21:24)
[2017-09-03] MEDS: PIPERACILLIN/TAZOB 3.375 GM 3.375 GM in DEXTROSE 5%-WATER - 50 ML IVPB SCH ×2 (01:55→10:29)
[2017-09-03] MEDS: HEPARIN NA (PORCINE) 5,000 UNITS/ML 1ML VIAL SQ SCH ×3 (06:26→21:58)
[2017-09-03 07:32] LABS: BASOPHIL 0.6 % (0-2.0); MCH 32.7 pg (25.7-33.7); MCHC 34.7 g/dl (32.0-35.9); MEAN CELL VOLUME 94.1 fl (80-96); MEAN PLT VOLUME 7.6 fl (7.5-11.1); NEUTROPHILS 73.9 % (42.8-82.8); PLATELET COUNT 406 K/MM3 (134-434); RDW 13.4 % (11.9-15.9); WHITE BLOOD COUNT 4.9 K/mm3 (4.0-10.0)
[2017-09-03 07:57] LABS: ANION GAP 7 (8-16); CALCIUM 7.8 mg/dL (8.5-10.1); CO2 27 mmol/L (21-32); GLUCOSE,RANDOM 100 mg/dL (74-106); MAGNESIUM 1.9 mg/dL (1.8-2.4); PHOSPHOROUS 3.4 mg/dL (2.5-4.9)
[2017-09-03 08:01] LABS: ALBUMIN 2.1 g/dl (3.4-5.0); BILIRUBIN,DIRECT 0.2 mg/dL (0.0-0.2)
[2017-09-03 08:02] LABS: BILIRUBIN,TOTAL 0.7 mg/dL (0.2-1.0); TOT PROT 5.7 g/dl (6.4-8.2)
[2017-09-03] MEDS: AMINO ACIDS/PROTEIN HYDROLYS 30 ML LIQUID.PKT PO SCH ×2 (09:01→17:30)
[2017-09-03] MEDS ORDERED: PIPERACILLIN/TAZOBACTAM 3.375 GM VIAL IVPB ONE ×2 (09:28→17:06)
[2017-09-03] MEDS ORDERED: DEXTROSE 5%-WATER - 50 ML IVPB ONE ×2 (09:28→17:06)
[2017-09-03] MEDS: LACTOBACILLUS ACIDOPHILUS 1 EACH TAB (FP) PO SCH (09:36)
[2017-09-03] MEDS ORDERED: VANCOMYCIN 1 GRAM (PRE-DOCKED) 1,000 MG/250 ML BAG IVPB ONE (11:57)
--- NOTE | 2017-09-03 12:04 | PN ---
Progress Note, Physician - Current Medication List Current Medications: Active Medications Amino Acids (Prosource No Carb Liquid Pkt) 30 ml PO BID@0800,1730 [facility] Last Admin: 09/03/17 09:01 Dose: 30 ml Diphenoxylate HCl/Atropine (Lomotil -) 1 combo PO Q8H PRN PRN Reason: DIARRHEA Ferrous Gluconate (Fergon -) 324 mg PO BID [facility] Heparin Sodium (Porcine) (Heparin -) 5,000 unit SQ TID [facility] Last Admin: 09/03/17 06:26 Dose: 5,000 unit Piperacillin Sod/Tazobactam (Sod 3.375 gm/ Dextrose) 50 mls @ 100 mls/hr IVPB Q8H-IV [facility] Last Admin: 09/03/17 10:29 Dose: 100 mls/hr Lactobacillus Acidophilus (Bacid -) 1 tab PO DAILY [facility] Last Admin: 09/03/17 09:36 Dose: 1 tab Ondansetron HCl (Zofran Injection) 4 mg IVPB Q6H PRN PRN Reason: NAUSEA Vancomycin HCl (Vancomycin (Pre-Docked)) 1,000 mg IVPB ONCE ONE PRN Reason: Protocol Stop: 09/03/17 11:58 - Objective Vital Signs: Vital Signs Temperature 99.0 F 09/03/17 10:17 Pulse Rate 81 09/03/17 10:17 Respiratory Rate 18 09/03/17 10:17 Blood Pressure 134/76 09/03/17 10:17 O2 Sat by Pulse Oximetry (%) 98 09/02/17 21:00 Labs: CBC, BMP 09/03/17 07:20 09/03/17 07:20 INR, PTT INR 1.50 (0.82-1.09) H 08/31/17 08:34 Problem List - Problems (1) Dehiscence of surgical wound Code(s): T81.31XA - DISRUPTION OF EXTERNAL OPERATION (SURGICAL) WOUND, NEC, INIT Qualifiers: Encounter type: subsequent encounter Qualified Code(s): T81.31XD - Disruption of external operation (surgical) wound, not elsewhere classified, subsequent encounter; T81.31XD - Disruption of external operation (surgical) wound, not elsewhere classified, subsequent encounter (2) Wound dehiscence Code(s): T81.30XA - DISRUPTION OF WOUND, UNSPECIFIED, INITIAL ENCOUNTER (3) Intra-abdominal abscess post-procedure Code(s): T81.4XXA - INFECTION FOLLOWING A PROCEDURE, INITIAL ENCOUNTER K65.1 - PERITONEAL ABSCESS Qualifiers: Encounter type: initial encounter Qualified Code(s): T81.4XXA - Infection following a procedure, initial encounter; T81.4XXA - Infection following a procedure, initial encounter; K65.1 - Peritoneal abscess; K65.1 - Peritoneal abscess; K65.1 - Peritoneal abscess (4) Peritoneal abscess Code(s): K65.1 - PERITONEAL ABSCESS (5) Malnutrition Code(s): E46 - UNSPECIFIED PROTEIN-CALORIE MALNUTRITION Qualifiers: Malnutrition type: protein-calorie malnutrition Protein-calorie malnutrition severity: severe Qualified Code(s): E43 - Unspecified severe protein-calorie malnutrition; E43 - Unspecified severe protein-calorie malnutrition; E43 - Unspecified severe protein-calorie malnutrition (6) Anemia Code(s): D64.9 - ANEMIA, UNSPECIFIED Qualifiers: Anemia type: other cause Assessment/Plan Surgery: Patient is moving his bowels, tolerating oral feeding. Afebrile, WBC is normal. Abdomen is soft , not tender , no sign of peritonitis. Has fecal matter draining from abdominal wound, ? enterocutaneous fistula. Catheter place in the wound for drainage and evacuation of material. He has dehiscence of abdominal wound , under the skin. Expect the fistula to close spontaneously , with nutritional support , as there os no distal obstruction . Patient is informed. Ct scan of abdomen is scheduled for tomorrow, for assessment of intraabdominal collection. Continue antibiotics. ? Controlled fistula.
--- NOTE | 2017-09-03 13:39 | PN ---
Teaching Attending Note Name of Resident: Norma Sales ATTENDING PHYSICIAN STATEMENT I saw and evaluated the patient. I reviewed the resident's note and discussed the case with the resident. I agree with the resident's findings and plan as documented. SUBJECTIVE: no abd pain, has no fever , denies N/V. earlier, fecal material was noted by Dr. Orlando and a drainage catheter was placed OBJECTIVE: NAD , AAOx3 CV : RRR Lungs : CTAB Ext : no edema ABD: soft,NT, mid line surgical wounds with ford, the lower part of the wound has a drainage and a clear dressing placed 30 mi n prior hypoactive BS. no distention ASSESSMENT AND PLAN: 62 y/o man with h/o abd wall hernia after laparotomy, h/o HTN , recent surgery for a strangulated hernia ( small bowel resection adn primary anastomossi) , now presents with drainage from abd wound. he was found to have abd abscess . 1- ABd abscess, with possible enterocutaneous fistula, s/p drainage catheter today still no leukocytosis or fever. wound cx with E coli and E Faecalis - cont zosyn - give one dose of vanco , pendign ID re-eval - repeat CT scan tomorrow , to decide on need for IR drainage. - follow blood cx - hold home ASA fro possible procedure 2- H/o HTN: resume lisinopril daily 3- DVT px.
[2017-09-03] MEDS: LISINOPRIL 10 MG TABLET (FP) PO SCH (13:56)
--- NOTE | 2017-09-03 14:30 | PN ---
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 - Current Medication List Current Medications: Active Medications Amino Acids (Prosource No Carb Liquid Pkt) 30 ml PO BID@0800,1730 [facility] Last Admin: 09/03/17 09:01 Dose: 30 ml Diphenoxylate HCl/Atropine (Lomotil -) 1 combo PO Q8H PRN PRN Reason: DIARRHEA Ferrous Gluconate (Fergon -) 324 mg PO BID [facility] Heparin Sodium (Porcine) (Heparin -) 5,000 unit SQ TID [facility] Last Admin: 09/03/17 13:56 Dose: 5,000 unit Piperacillin Sod/Tazobactam (Sod 3.375 gm/ Dextrose) 50 mls @ 100 mls/hr IVPB Q8H-IV [facility] Last Admin: 09/03/17 10:29 Dose: 100 mls/hr Lactobacillus Acidophilus (Bacid -) 1 tab PO DAILY [facility] Last Admin: 09/03/17 09:36 Dose: 1 tab Lisinopril (Prinivil) 10 mg PO DAILY [facility] Last Admin: 09/03/17 13:56 Dose: 10 mg Ondansetron HCl (Zofran Injection) 4 mg IVPB Q6H PRN PRN Reason: NAUSEA - Objective Vital Signs: Vital Signs Temperature 99.0 F 09/03/17 10:17 Pulse Rate 81 09/03/17 10:17 Respiratory Rate 18 09/03/17 10:17 Blood Pressure 134/76 09/03/17 10:17 O2 Sat by Pulse Oximetry (%) 98 09/02/17 21:00 Constitutional: Yes: No Distress, Calm Neck: Yes: Supple, Trachea Midline Cardiovascular: Yes: Regular Rate and Rhythm Respiratory: Yes: Regular, CTA Bilaterally Gastrointestinal: Yes: Other (leaking feces form the wound draiange tube placed) Musculoskeletal: Yes: WNL Extremities: Yes: WNL Wound/Incision: Yes: Dressing Dry and Intact Neurological: Yes: Alert, Oriented Labs: CBC, BMP 09/03/17 07:20 09/03/17 07:20 INR, PTT INR 1.50 (0.82-1.09) H 08/31/17 08:34 Assessment/Plan Surgical site infection/ intra-abd abscess s/p Ventral incarcerated hernia repair and anastomosis HTN enterocutaneous fistula plan conintue abx cct scan tomorrow will increase dose of zosyn for now rest as per primary
[2017-09-03] MEDS ORDERED: PIPERACILLIN/TAZOB 3.375 GM 4.5 GM in DEXTROSE 5%-WATER - 50 ML IVPB SCH (14:31)
[2017-09-03] MEDS: SODIUM CHLORIDE 1,000 ML IV SCH (15:16)
[2017-09-03] MEDS ORDERED: PIPERACILLIN/TAZOBACTAM 4.5 GM VIAL IVPB ONE ×2 (17:12→19:47)
[2017-09-03] MEDS ORDERED: DEXTROSE 5%-WATER 100 ML IVPB ONE ×2 (17:12→19:47)
[2017-09-03] MEDS: PIPERACILLIN/TAZOB 4.5 GM 4.5 GM in DEXTROSE 5%-WATER 100 ML IVPB SCH (17:30)
--- NOTE | 2017-09-03 18:37 | PN ---
Physical Exam: SUBJECTIVE: Patient seen and examined Had a temperature spike overnight. Still draining per abdominal wound. Still has loose bowel movements OBJECTIVE: Vital Signs Period Temp Pulse Resp BP Sys/Jacome Pulse Ox Last 24 Hr 99.0 F-100.2 F 81-98 16-18 134-144/74-86 95-98 GENERAL: The patient is awake, alert, and fully oriented, in no acute distress. ENT: Ears normal, nares patent, oropharynx clear without exudates, moist mucous membranes. NECK: Trachea midline, full range of motion, supple. LUNGS: Breath sounds equal, clear to auscultation bilaterally, no wheezes, no crackles, no accessory muscle use. HEART: Regular rate and rhythm, S1, S2 without murmur, rub or gallop. ABDOMEN: Soft, nontender, nondistended, Midline dressing in place, underlying drainage can be visualized through waterproof dressing normoactive bowel sounds , no guarding, no rebound, no hepatosplenomegaly, no masses. EXTREMITIES: 2+ pulses, warm, well-perfused, no edema. NEUROLOGICAL: Normal speech, normal gait PSYCH: Normal mood, normal affect. Laboratory Results - last 24 hr 09/03/17 09/03/17 09/03/17 07:20 07:20 07:20 WBC 4.9 RBC 2.73 L Hgb 8.9 L Hct 25.6 L MCV 94.1 MCH 32.7 MCHC 34.7 RDW 13.4 Plt Count 406 MPV 7.6 Neutrophils % 73.9 Lymphocytes % 12.9 Monocytes % 10.6 H Eosinophils % 2.0 Basophils % 0.6 Sodium 133 L Potassium 3.7 Chloride 99 Carbon Dioxide 27 Anion Gap 7 L BUN 9 D Creatinine 1.0 Random Glucose 100 Lactic Acid Calcium 7.8 L Phosphorus 3.4 Magnesium 1.9 Total Bilirubin 0.7 D Direct Bilirubin 0.2 AST 21 D ALT 25 D Alkaline Phosphatase 92 Total Protein 5.7 L Albumin 2.1 L 09/03/17 14:00 WBC RBC Hgb Hct MCV MCH MCHC RDW Plt Count MPV Neutrophils % Lymphocytes % Monocytes % Eosinophils % Basophils % Sodium Potassium Chloride Carbon Dioxide Anion Gap BUN Creatinine Random Glucose Lactic Acid 2.3 H* Calcium Phosphorus Magnesium Total Bilirubin Direct Bilirubin AST ALT Alkaline Phosphatase Total Protein Albumin Active Medications Generic Name Dose Route Start Last Admin Trade Name Freq PRN Reason Stop Dose Admin Amino Acids 30 ml 09/01/17 17:30 09/03/17 17:30 Prosource No Carb Liquid Pkt PO 30 ml BID@0800,1730 [facility] Administration Diphenoxylate HCl/Atropine 1 combo 09/02/17 16:07 Lomotil - PO Q8H PRN [facility] Ferrous Gluconate 324 mg 09/03/17 22:00 Fergon - PO BID [facility] Heparin Sodium (Porcine) 5,000 unit 09/02/17 14:15 09/03/17 13:56 Heparin - SQ 5,000 unit TID [facility] Administration Sodium Chloride 1,000 mls @ 100 mls/hr 09/03/17 15:00 09/03/17 15:16 Normal Saline - IV 100 mls/hr ASDIR [facility] Administration Piperacillin Sod/Tazobactam 100 mls @ 200 mls/hr 09/03/17 18:00 09/03/17 17:30 Sod 4.5 gm/ Dextrose IVPB 200 mls/hr Q8H-IV [facility] Administration Lactobacillus Acidophilus 1 tab 09/01/17 13:30 09/03/17 09:36 Bacid - PO 1 tab DAILY [facility] Administration Lisinopril 10 mg 09/03/17 13:45 09/03/17 13:56 Prinivil PO 10 mg DAILY [facility] Administration Ondansetron HCl 4 mg 08/31/17 15:40 Zofran Injection IVPB Q6H PRN NAUSEA ASSESSMENT/PLAN: 62y M with PMHX of HTN, history of surgery for incarcerated ventral hernia and anastomosis on 08/21/17 presenting with increased foul-smelling drainage from the lower aspect of surgical wound site and found to have RUQ abscess #Wound abscess: Patient found to be draining feces per wound site- per surgery Day 4 on Zosyn Day [address] tomorrow Elevated lactic acid- repeat Pain management Continue liberate oral fluids IV fluids Monitor closely CT abdomen tomorrow #Anemia Ferrous sulphate Monitor CBC #Protein Energy Malnutrition On soft diet On nutritonal supplement #Hypokalemia BMP #HTN Lisinopril 10mg Monitor #FEN IV fluids Monitor electrolytes and replete as needed Continue diet #Prophylaxis Hold protonix Resume heparin #Dispo Med surg Visit type - Emergency Visit Emergency Visit: Yes ED Registration Date: 08/30/17 Care time: The patient presented to the Emergency Department on the above date and was hospitalized for further evaluation of their emergent condition. - New Patient This patient is new to me today: No - Critical Care Critical Care patient: No - Discharge Referral Referred to [facility] No
[2017-09-03] MEDS: FERROUS GLUCONATE 324 MG TAB (FP) PO SCH (21:19)
[2017-09-04] MEDS: SODIUM CHLORIDE 1,000 ML IV SCH ×2 (00:53→14:31)
[2017-09-04] MEDS: PIPERACILLIN/TAZOB 4.5 GM 4.5 GM in DEXTROSE 5%-WATER 100 ML IVPB SCH ×3 (02:58→18:53)
[2017-09-04] MEDS: HEPARIN NA (PORCINE) 5,000 UNITS/ML 1ML VIAL SQ SCH ×3 (08:07→22:12)
[2017-09-04 08:38] LABS: BASOPHIL 0.8 % (0-2.0); EOSINOPHIL 3.2 % (0-4.5); MCH 31.6 pg (25.7-33.7); MEAN CELL VOLUME 92.9 fl (80-96); MEAN PLT VOLUME 7.7 fl (7.5-11.1); NEUTROPHILS 67.7 % (42.8-82.8); PLATELET COUNT 396 K/MM3 (134-434); RDW 13.1 % (11.9-15.9); WHITE BLOOD COUNT 4.6 K/mm3 (4.0-10.0)
[2017-09-04 08:46] LABS: ALBUMIN 2.1 g/dl (3.4-5.0); ALK PHOS 89 U/L (45-117); ANION GAP 11 (8-16); BILIRUBIN,TOTAL 0.7 mg/dL (0.2-1.0); CALCIUM 7.9 mg/dL (8.5-10.1); CO2 27 mmol/L (21-32); CREATININE 0.8 mg/dL (0.7-1.3); GLUCOSE,RANDOM 92 mg/dL (74-106); SGOT/AST 23 U/L (15-37); SGPT/ALT 24 U/L (12-78); TOT PROT 5.3 g/dl (6.4-8.2)
[2017-09-04] MEDS ORDERED: PIPERACILLIN/TAZOBACTAM 4.5 GM VIAL IVPB ONE ×2 (10:43→18:51)
[2017-09-04] MEDS ORDERED: DEXTROSE 5%-WATER 100 ML IVPB ONE ×2 (10:44→18:51)
[2017-09-04] MEDS: LISINOPRIL 10 MG TABLET (FP) PO SCH (11:42)
[2017-09-04] MEDS: AMINO ACIDS/PROTEIN HYDROLYS 30 ML LIQUID.PKT PO SCH ×2 (11:42→18:52)
[2017-09-04] MEDS: LACTOBACILLUS ACIDOPHILUS 1 EACH TAB (FP) PO SCH (11:43)
[2017-09-04] MEDS: FERROUS GLUCONATE 324 MG TAB (FP) PO SCH ×2 (11:43→22:12)
--- NOTE | 2017-09-04 14:02 | PN ---
Progress Note, Physician History of Present Illness: stable draining noted - Current Medication List Current Medications: Active Medications Amino Acids (Prosource No Carb Liquid Pkt) 30 ml PO BID@0800,1730 [facility] Last Admin: 09/04/17 11:42 Dose: 30 ml Diphenoxylate HCl/Atropine (Lomotil -) 1 combo PO Q8H PRN PRN Reason: DIARRHEA Ferrous Gluconate (Fergon -) 324 mg PO BID [facility] Last Admin: 09/04/17 11:43 Dose: 324 mg Heparin Sodium (Porcine) (Heparin -) 5,000 unit SQ TID [facility] Last Admin: 09/04/17 08:07 Dose: Not Given Sodium Chloride (Normal Saline -) 1,000 mls @ 100 mls/hr IV ASDIR [facility] Last Admin: 09/04/17 00:53 Dose: 100 mls/hr Piperacillin Sod/Tazobactam (Sod 4.5 gm/ Dextrose) 100 mls @ 200 mls/hr IVPB Q8H-IV [facility] Last Admin: 09/04/17 11:46 Dose: 200 mls/hr Lactobacillus Acidophilus (Bacid -) 1 tab PO DAILY [facility] Last Admin: 09/04/17 11:43 Dose: 1 tab Lisinopril (Prinivil) 10 mg PO DAILY [facility] Last Admin: 09/04/17 11:42 Dose: 10 mg Ondansetron HCl (Zofran Injection) 4 mg IVPB Q6H PRN PRN Reason: NAUSEA - Objective Vital Signs: Vital Signs Temperature 98.4 F 09/04/17 13:54 Pulse Rate 85 09/04/17 13:54 Respiratory Rate 16 09/04/17 13:54 Blood Pressure 114/62 09/04/17 13:54 O2 Sat by Pulse Oximetry (%) 95 09/03/17 09:00 Constitutional: Yes: No Distress, Calm Cardiovascular: Yes: Regular Rate and Rhythm Respiratory: Yes: Regular, CTA Bilaterally Gastrointestinal: Yes: Soft, Other Musculoskeletal: Yes: WNL Extremities: Yes: WNL Wound/Incision: Yes: Dressing Dry and Intact, Other (draiange tube in place) Neurological: Yes: Alert, Oriented Psychiatric: Yes: Alert Labs: CBC, BMP 09/04/17 07:20 09/04/17 07:20 INR, PTT INR 1.50 (0.82-1.09) H 10/01/17 08:34 Assessment/Plan Surgical site infection/ intra-abd abscess s/p Ventral incarcerated hernia repair and anastomosis HTN enterocutaneous fistula plan conintue abx await for ct scan results rest as per surgery and primary
--- NOTE | 2017-09-04 14:53 | PN ---
Physical Exam: SUBJECTIVE: Patient seen and examined. 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 Still passing loose stools. Drained feces from the drain . OBJECTIVE: Vital Signs Period Temp Pulse Resp BP Sys/Jacome Pulse Ox Last 24 Hr 98.3 F-99.9 F 73-85 16-18 114-143/62-86 GENERAL: The patient is awake, alert, and fully oriented, in no acute distress. ENT: moist mucous membranes. LUNGS: Breath sounds equal, clear to auscultation bilaterally, no wheezes, no crackles, no accessory muscle use. HEART: Regular rate and rhythm, S1, S2 without murmur, rub or gallop. ABDOMEN: Soft, nontender, nondistended, normoactive bowel sounds, mid line incision with stapes in place above the umbilicus. abdominal drain (in the morning) drained about 50mls of brownish stool, dressing surrounding the tube was in place. EXTREMITIES: 2+ pulses, warm, well-perfused, no edema. NEUROLOGICAL: Cranial nerves II through XII grossly intact. Normal speech, normal gait PSYCH: Normal mood, normal affect. Laboratory Results - last 24 hr 09/03/17 09/04/17 09/04/17 18:50 07:20 07:20 WBC 4.6 RBC 2.64 L Hgb 8.3 L Hct 24.5 L MCV 92.9 MCH 31.6 MCHC 34.0 RDW 13.1 Plt Count 396 MPV 7.7 Neutrophils % 67.7 Lymphocytes % 15.1 Monocytes % 13.2 H Eosinophils % 3.2 Basophils % 0.8 Sodium Potassium Chloride Carbon Dioxide Anion Gap BUN Creatinine Creat Clearance w eGFR Random Glucose Lactic Acid 1.5 0.6 Calcium Total Bilirubin AST ALT Alkaline Phosphatase Total Protein Albumin 09/04/17 07:20 WBC RBC Hgb Hct MCV MCH MCHC RDW Plt Count MPV Neutrophils % Lymphocytes % Monocytes % Eosinophils % Basophils % Sodium 134 L Potassium 3.5 Chloride 96 L Carbon Dioxide 27 Anion Gap 11 BUN 8 Creatinine 0.8 Creat Clearance w eGFR > 60 Random Glucose 92 Lactic Acid Calcium 7.9 L Total Bilirubin 0.7 AST 23 ALT 24 Alkaline Phosphatase 89 Total Protein 5.3 L Albumin 2.[address] - showed decreasing Rt mid abdominal abscess Active Medications Generic Name Dose Route Start Last Admin Trade Name Freq PRN Reason Stop Dose Admin Amino Acids 30 ml 09/01/17 17:30 09/04/17 11:42 Prosource No Carb Liquid Pkt PO 30 ml BID@0800,1730 [facility] Administration Diphenoxylate HCl/Atropine 1 combo 09/02/17 16:07 Lomotil - PO Q8H PRN DIARRHEA Ferrous Gluconate 324 mg 09/03/17 22:00 09/04/17 11:43 Fergon - PO 324 mg BID [facility] Administration Heparin Sodium (Porcine) 5,000 unit 09/02/17 14:15 09/04/17 14:34 Heparin - SQ 5,000 unit TID [facility] Administration Sodium Chloride 1,000 mls @ 100 mls/hr 09/03/17 15:00 09/04/17 14:31 Normal Saline - IV 100 mls/hr ASDIR [facility] Administration Piperacillin Sod/Tazobactam 100 mls @ 200 mls/hr 09/03/17 18:00 09/04/17 11:46 Sod 4.5 gm/ Dextrose IVPB 200 mls/hr Q8H-IV [facility] Administration Lactobacillus Acidophilus 1 tab 09/01/17 13:30 09/04/17 11:43 Bacid - PO 1 tab DAILY [facility] Administration Lisinopril 10 mg 09/03/17 13:45 09/04/17 11:42 Prinivil PO 10 mg DAILY [facility] Administration Ondansetron HCl 4 mg 08/31/17 15:40 Zofran Injection IVPB Q6H PRN NAUSEA ASSESSMENT/PLAN: 62y M with PMHX of HTN, history of surgery for incarcerated ventral hernia and anastomosis on 08/21/17 presenting with increased foul-smelling drainage from surgical wound site, 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 #Wound abscess Day 5 on Zosyn Pain management Continue liberate oral fluids IV fluids Monitor closely #enterocutaneous fistula Vandiver pouch in place to drain feces Cont AB Continue Iv fluids Nutritonal supplement #Elevated lactic acid- resolved #Anemia Ferrous sulphate Monitor CBC #Protein Energy Malnutrition On soft diet On nutritonal supplement #Hypokalemia BMP #HTN Lisinopril 10mg Monitor #FEN IV fluids Monitor electrolytes and replete as needed Continue diet #Prophylaxis Hold protonix Resume heparin #Dispo Med surg Visit type - Emergency Visit Emergency Visit: Yes ED Registration Date: 08/30/17 Care time: The patient presented to the Emergency Department on the above date and was hospitalized for further evaluation of their emergent condition. - New Patient This patient is new to me today: No - Critical Care Critical Care patient: No - Discharge Referral Referred to [facility] No
--- NOTE | 2017-09-04 15:19 | PN ---
Progress Note, Physician History of Present Illness: Enerocutabeous fistula, improving. - Current Medication List Current Medications: Active Medications Amino Acids (Prosource No Carb Liquid Pkt) 30 ml PO BID@0800,1730 [facility] Last Admin: 09/04/17 11:42 Dose: 30 ml Diphenoxylate HCl/Atropine (Lomotil -) 1 combo PO Q8H PRN PRN Reason: DIARRHEA Ferrous Gluconate (Fergon -) 324 mg PO BID [facility] Last Admin: 09/04/17 11:43 Dose: 324 mg Heparin Sodium (Porcine) (Heparin -) 5,000 unit SQ TID [facility] Last Admin: 09/04/17 14:34 Dose: 5,000 unit Sodium Chloride (Normal Saline -) 1,000 mls @ 100 mls/hr IV ASDIR [facility] Last Admin: 09/04/17 14:31 Dose: 100 mls/hr Piperacillin Sod/Tazobactam (Sod 4.5 gm/ Dextrose) 100 mls @ 200 mls/hr IVPB Q8H-IV [facility] Last Admin: 09/04/17 11:46 Dose: 200 mls/hr Lactobacillus Acidophilus (Bacid -) 1 tab PO DAILY [facility] Last Admin: 09/04/17 11:43 Dose: 1 tab Lisinopril (Prinivil) 10 mg PO DAILY [facility] Last Admin: 09/04/17 11:42 Dose: 10 mg Ondansetron HCl (Zofran Injection) 4 mg IVPB Q6H PRN PRN Reason: NAUSEA - Objective Vital Signs: Vital Signs Temperature 98.4 F 09/04/17 13:54 Pulse Rate 85 09/04/17 13:54 Respiratory Rate 16 09/04/17 13:54 Blood Pressure 114/62 09/04/17 13:54 O2 Sat by Pulse Oximetry (%) 95 09/03/17 09:00 Labs: CBC, BMP 09/04/17 07:20 09/04/17 07:20 INR, PTT INR 1.50 (0.82-1.09) H 08/31/17 08:34 Problem List - Problems (1) Dehiscence of surgical wound Code(s): T81.31XA - DISRUPTION OF EXTERNAL OPERATION (SURGICAL) WOUND, NEC, INIT Qualifiers: Encounter type: subsequent encounter Qualified Code(s): T81.31XD - Disruption of external operation (surgical) wound, not elsewhere classified, subsequent encounter; T81.31XD - Disruption of external operation (surgical) wound, not elsewhere classified, subsequent encounter (2) Wound dehiscence Code(s): T81.30XA - DISRUPTION OF WOUND, UNSPECIFIED, INITIAL ENCOUNTER (3) Intra-abdominal abscess post-procedure Code(s): T81.4XXA - INFECTION FOLLOWING A PROCEDURE, INITIAL ENCOUNTER K65.1 - PERITONEAL ABSCESS Qualifiers: Encounter type: initial encounter Qualified Code(s): T81.4XXA - Infection following a procedure, initial encounter; T81.4XXA - Infection following a procedure, initial encounter; K65.1 - Peritoneal abscess; K65.1 - Peritoneal abscess; K65.1 - Peritoneal abscess (4) Peritoneal abscess Code(s): K65.1 - PERITONEAL ABSCESS (5) Malnutrition Code(s): E46 - UNSPECIFIED PROTEIN-CALORIE MALNUTRITION Qualifiers: Malnutrition type: protein-calorie malnutrition Protein-calorie malnutrition severity: severe Qualified Code(s): E43 - Unspecified severe protein-calorie malnutrition; E43 - Unspecified severe protein-calorie malnutrition; E43 - Unspecified severe protein-calorie malnutrition (6) Anemia Code(s): D64.9 - ANEMIA, UNSPECIFIED Qualifiers: Anemia type: other cause Assessment/Plan patient is afebrile, tolerating oral feeding. drainage from the wound is minimal. CT scan with contrast shows , a smaller abscess/collection around the anastamosis, no leakage of contrast. Abdominal dressing , changed to placement of colostomy bag around the fistula. Patient informed of findings , and plan of management , expectantly, toward spontanoeous closure of the fistula and drainage. He is made aware of the wound dehiscence , and recurrence of the abdominal hernia. 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 Nutritional supplements, with high proteins, and iron. Low output enteric fistula.
--- NOTE | 2017-09-04 17:00 | PN ---
Teaching Attending Note Name of Resident: Norma Sales ATTENDING PHYSICIAN STATEMENT I saw and evaluated the patient. I reviewed the resident's note and discussed the case with the resident. I agree with the resident's findings and plan as documented. SUBJECTIVE: no fever or chills, no Abd pain , no N/V OBJECTIVE: seen at 8 am NAD , AAOx3 CV : RRR Lungs : CTAB Ext : no edema ABD: soft,NT, mid line surgical wounds with ford, the lower part of the wound has an open area with purulent drainage and a drainage tube . Nl BS , no distention , No TTP ASSESSMENT AND PLAN: 62 y/o man with h/o abd wall hernia after laparotomy, h/o HTN , recent surgery for a strangulated hernia ( small bowel resection adn primary anastomossi) , now presents with drainage from abd wound. he was found to have abd abscess . 1- ABd abscess, with possible enterocutaneous fistula Still no leukocytosis or fever. wound cx with E coli and E Faecalis CT scan with decreased size of abscess - Cont zosyn -Appreciate Surgery input. Conservative mgt. No need for IR drainage - Follow blood cx - cont to hold home Aspirin in case he needs a procedure - Cont IVF . Lactic normalized . might stop tomorrow 2- H/o HTN: Cont lisinopril daily 3- DVT px.
[2017-09-05] MEDS ORDERED: PIPERACILLIN/TAZOBACTAM 4.5 GM VIAL IVPB ONE ×3 (01:24→17:17)
[2017-09-05] MEDS ORDERED: DEXTROSE 5%-WATER 100 ML IVPB ONE ×3 (01:24→17:17)
[2017-09-05] MEDS: PIPERACILLIN/TAZOB 4.5 GM 4.5 GM in DEXTROSE 5%-WATER 100 ML IVPB SCH ×3 (01:34→17:53)
[2017-09-05] MEDS: HEPARIN NA (PORCINE) 5,000 UNITS/ML 1ML VIAL SQ SCH ×3 (06:11→21:35)
[2017-09-05 08:00] LABS: BASOPHIL 1.1 % (0-2.0); MCH 31.5 pg (25.7-33.7); MEAN CELL VOLUME 92.6 fl (80-96); MEAN PLT VOLUME 7.7 fl (7.5-11.1); NEUTROPHILS 61.1 % (42.8-82.8); PLATELET COUNT 392 K/MM3 (134-434); RDW 13.2 % (11.9-15.9); WHITE BLOOD COUNT 3.7 K/mm3 (4.0-10.0)
[2017-09-05 08:20] LABS: CALCIUM 8.1 mg/dL (8.5-10.1)
[2017-09-05 08:26] LABS: ALK PHOS 79 U/L (45-117); ANION GAP 6 (8-16); BILIRUBIN,TOTAL 0.3 mg/dL (0.2-1.0); CO2 28 mmol/L (21-32); CREATININE 0.8 mg/dL (0.7-1.3); GLUCOSE,RANDOM 85 mg/dL (74-106); PHOSPHOROUS 3.7 mg/dL (2.5-4.9); SGOT/AST 23 U/L (15-37); SGPT/ALT 23 U/L (12-78); TOT PROT 5.5 g/dl (6.4-8.2)
[2017-09-05] MEDS: AMINO ACIDS/PROTEIN HYDROLYS 30 ML LIQUID.PKT PO SCH ×2 (08:48→17:52)
[2017-09-05] MEDS: LISINOPRIL 10 MG TABLET (FP) PO SCH (09:59)
[2017-09-05] MEDS: FERROUS GLUCONATE 324 MG TAB (FP) PO SCH ×2 (09:59→21:35)
[2017-09-05] MEDS: LACTOBACILLUS ACIDOPHILUS 1 EACH TAB (FP) PO SCH (09:59)
--- NOTE | 2017-09-05 13:23 | PN ---
Progress Note, Physician - Current Medication List Current Medications: Active Medications Amino Acids (Prosource No Carb Liquid Pkt) 30 ml PO BID@0800,1730 [facility] Last Admin: 09/05/17 08:48 Dose: 30 ml Diphenoxylate HCl/Atropine (Lomotil -) 1 combo PO Q8H PRN PRN Reason: DIARRHEA Ferrous Gluconate (Fergon -) 324 mg PO BID [facility] Last Admin: 09/05/17 09:59 Dose: 324 mg Heparin Sodium (Porcine) (Heparin -) 5,000 unit SQ TID [facility] Last Admin: 09/05/17 06:11 Dose: 5,000 unit Piperacillin Sod/Tazobactam (Sod 4.5 gm/ Dextrose) 100 mls @ 200 mls/hr IVPB Q8H-IV [facility] Last Admin: 09/05/17 09:59 Dose: 200 mls/hr Lactobacillus Acidophilus (Bacid -) 1 tab PO DAILY [facility] Last Admin: 09/05/17 09:59 Dose: 1 tab Lisinopril (Prinivil) 10 mg PO DAILY [facility] Last Admin: 09/05/17 09:59 Dose: Not Given Ondansetron HCl (Zofran Injection) 4 mg IVPB Q6H PRN PRN Reason: NAUSEA - Objective Vital Signs: Vital Signs Temperature 97.8 F 09/05/17 06:00 Pulse Rate 69 09/05/17 06:00 Respiratory Rate 18 09/05/17 06:00 Blood Pressure 129/73 09/05/17 06:00 O2 Sat by Pulse Oximetry (%) 96 09/04/17 20:52 Labs: CBC, BMP 09/05/17 07:00 09/05/17 07:00 INR, PTT INR 1.50 (0.82-1.09) H 08/31/17 08:34 Problem List - Problems (1) Dehiscence of surgical wound Code(s): T81.31XA - DISRUPTION OF EXTERNAL OPERATION (SURGICAL) WOUND, NEC, INIT Qualifiers: Encounter type: subsequent encounter Qualified Code(s): T81.31XD - Disruption of external operation (surgical) wound, not elsewhere classified, subsequent encounter; T81.31XD - Disruption of external operation (surgical) wound, not elsewhere classified, subsequent encounter (2) Wound dehiscence Code(s): T81.30XA - DISRUPTION OF WOUND, UNSPECIFIED, INITIAL ENCOUNTER (3) Intra-abdominal abscess post-procedure Code(s): T81.4XXA - INFECTION FOLLOWING A PROCEDURE, INITIAL ENCOUNTER K65.1 - PERITONEAL ABSCESS Qualifiers: Encounter type: initial encounter Qualified Code(s): T81.4XXA - Infection following a procedure, initial encounter; T81.4XXA - Infection following a procedure, initial encounter; K65.1 - Peritoneal abscess; K65.1 - Peritoneal abscess; K65.1 - Peritoneal abscess (4) Peritoneal abscess Code(s): K65.1 - PERITONEAL ABSCESS (5) Malnutrition Code(s): E46 - UNSPECIFIED PROTEIN-CALORIE MALNUTRITION Qualifiers: Malnutrition type: protein-calorie malnutrition Protein-calorie malnutrition severity: severe Qualified Code(s): E43 - Unspecified severe protein-calorie malnutrition; E43 - Unspecified severe protein-calorie malnutrition; E43 - Unspecified severe protein-calorie malnutrition (6) Anemia Code(s): D64.9 - ANEMIA, UNSPECIFIED Qualifiers: Anemia type: other cause Assessment/Plan Still has some drainage from the lower portion of the abdominal wound , however , less in quantity. Albumen srill 2.0 gms. Tolerating oral feeding. Having bowel movements. Continue antibiotics, discharge when drainage is minimal.
--- NOTE | 2017-09-05 14:20 | PN ---
Teaching Attending Note Name of Resident: Norma Sales ATTENDING PHYSICIAN STATEMENT I saw and evaluated the patient. I reviewed the resident's note and discussed the case with the resident. I agree with the resident's findings and plan as documented. SUBJECTIVE: no fever or chills. has no abd pain, diarrhea has slightly improved, consistency is thicker. no N/V OBJECTIVE: NAD , AAOx3 CV : RRR Lungs : CTAB Ext : no edema . has skin Mottling on thighs ABD: soft, NT, mid line surgical wounds with ford, the lower part of the wound has an open area with a drainage bag attached. Nl BS , no distention , minimal tenderness to palpation around wound ASSESSMENT AND PLAN: 62 y/o man with h/o abd wall hernia after laparotomy, h/o HTN , recent surgery for a strangulated hernia ( small bowel resection adn primary anastomossi) , now presents with drainage from abd wound. he was found to have abd abscess . 1- ABd abscess, with possible enterocutaneous fistula Still no leukocytosis or fever. wound cx with E coli and E Faecalis CT scan with decreased size of abscess. he has skin mottling on legs thighs today - check lactic acid . - cont zosyn - follow amount of drainage form wound- might need repeat imaging to evaluate abscess - cont to hold home Aspirin in case he needs a procedure - cont prosource 2- H/o HTN: Cont lisinopril daily 3- DVT px.
--- NOTE | 2017-09-05 14:51 | PN ---
Progress Note, Physician History of Present Illness: stable still with drainage improving - Current Medication List Current Medications: Active Medications Amino Acids (Prosource No Carb Liquid Pkt) 30 ml PO BID@0800,1730 [facility] Last Admin: 09/05/17 08:48 Dose: 30 ml Diphenoxylate HCl/Atropine (Lomotil -) 1 combo PO Q8H PRN PRN Reason: DIARRHEA Ferrous Gluconate (Fergon -) 324 mg PO BID [facility] Last Admin: 09/05/17 09:59 Dose: 324 mg Heparin Sodium (Porcine) (Heparin -) 5,000 unit SQ TID [facility] Last Admin: 09/05/17 13:55 Dose: Not Given Piperacillin Sod/Tazobactam (Sod 4.5 gm/ Dextrose) 100 mls @ 200 mls/hr IVPB Q8H-IV [facility] Last Admin: 09/05/17 09:59 Dose: 200 mls/hr Lactobacillus Acidophilus (Bacid -) 1 tab PO DAILY [facility] Last Admin: 09/05/17 09:59 Dose: 1 tab Lisinopril (Prinivil) 10 mg PO DAILY [facility] Last Admin: 09/05/17 09:59 Dose: Not Given Ondansetron HCl (Zofran Injection) 4 mg IVPB Q6H PRN PRN Reason: NAUSEA - Objective Vital Signs: Vital Signs Temperature 97.8 F 09/05/17 06:00 Pulse Rate 69 09/05/17 06:00 Respiratory Rate 18 09/05/17 06:00 Blood Pressure 129/73 09/05/17 06:00 O2 Sat by Pulse Oximetry (%) 96 09/04/17 20:52 Constitutional: Yes: No Distress, Calm Cardiovascular: Yes: Regular Rate and Rhythm Respiratory: Yes: Regular, CTA Bilaterally Gastrointestinal: Yes: Normal Bowel Sounds, Soft, Other (draiange from fistula) Musculoskeletal: Yes: WNL Extremities: Yes: WNL Neurological: Yes: Alert, Oriented Psychiatric: Yes: Alert, Oriented Labs: CBC, BMP 09/05/17 07:00 09/05/17 07:00 INR, PTT INR 1.50 (0.82-1.09) H 08/31/17 08:34 Assessment/Plan Surgical site infection/ intra-abd abscess s/p Ventral incarcerated hernia repair and anastomosis HTN enterocutaneous fistula plan conintue abx ct results noted once drainage is less then will switch to oral rest as per surgery and primary
--- NOTE | 2017-09-05 18:11 | PN ---
Physical Exam: SUBJECTIVE: Patient seen and examined Still draining loose stool into the attached bag, minimal, but more with gravity , as he moves. Had less episodes of loose stool. No fevers, or chills. No abdominal pain. OBJECTIVE: Vital Signs Period Temp Pulse Resp BP Sys/Jacome Pulse Ox Last 24 Hr 97.8 F-99.4 F 69-82 16-18 108-130/56-78 96-98 GENERAL: The patient is awake, alert, and fully oriented, in no acute distress. ENT: moist mucous membranes. LUNGS: Breath sounds equal, clear to auscultation bilaterally, HEART: Regular rate and rhythm, S1, S2 ABDOMEN: Soft, nontender, nondistended, normoactive bowel sounds, abdominal ford in place above umbilicus, draining bag in place draining loose stool. EXTREMITIES: 2+ pulses, warm, well-perfused, no edema. NEUROLOGICAL: Cranial nerves II through XII grossly intact. Normal speech, normal gait. PSYCH: Normal mood, normal affect. SKIN: Warm, dry, normal turgor,skin mottling on thighs bilaterally Laboratory Results - last 24 hr 09/05/17 09/05/17 09/05/17 07:00 07:00 14:35 WBC 3.7 L RBC 2.69 L Hgb 8.5 L Hct 24.9 L MCV 92.6 MCH 31.5 MCHC 34.0 RDW 13.2 Plt Count 392 MPV 7.7 Neutrophils % 61.1 Lymphocytes % 18.2 D Monocytes % 13.6 H Eosinophils % 6.0 H D Basophils % 1.1 Sodium 135 L Potassium 3.8 Chloride 101 Carbon Dioxide 28 Anion Gap 6 L BUN 8 Creatinine 0.8 Creat Clearance w eGFR > 60 Random Glucose 85 Lactic Acid 1.5 Calcium 8.1 L Phosphorus 3.7 Magnesium 2.0 Total Bilirubin 0.3 D AST 23 ALT 23 Alkaline Phosphatase 79 Total Protein 5.5 L Albumin 2.0 L Active Medications Generic Name Dose Route Start Last Admin Trade Name Freq PRN Reason Stop Dose Admin Amino Acids 30 ml 09/01/17 17:30 09/05/17 17:52 Prosource No Carb Liquid Pkt PO 30 ml BID@0800,1730 [facility] Administration Diphenoxylate HCl/Atropine 1 combo 09/02/17 16:07 Lomotil - PO Q8H PRN DIARRHEA Ferrous Gluconate 324 mg 09/03/17 22:00 09/05/17 09:59 Fergon - PO 324 mg BID [facility] Administration Heparin Sodium (Porcine) 5,000 unit 09/02/17 14:15 09/05/17 13:55 Heparin - SQ Not Given TID [facility] Piperacillin Sod/Tazobactam 100 mls @ 200 mls/hr 09/03/17 18:00 09/05/17 17:53 Sod 4.5 gm/ Dextrose IVPB 200 mls/hr Q8H-IV [facility] Administration Lactobacillus Acidophilus 1 tab 09/01/17 13:30 09/05/17 09:59 Bacid - PO 1 tab DAILY [facility] Administration Lisinopril 10 mg 09/03/17 13:45 09/05/17 09:59 Prinivil PO Not Given DAILY [facility] Ondansetron HCl 4 mg 08/31/17 15:40 Zofran Injection IVPB Q6H PRN NAUSEA ASSESSMENT/PLAN: 62y M with PMHX of HTN, history of surgery for incarcerated ventral hernia and anastomosis on 08/21/17 presenting with increased foul-smelling drainage from surgical wound site, 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 #Wound abscess Day 6 on Zosyn Pain management Continue liberate oral fluids IV fluids Monitor closely #enterocutaneous fistula Friend pouch in place to drain feces Cont AB Continue Iv fluids Nutritonal supplement #Elevated lactic acid- resolved #Anemia Ferrous sulphate Monitor CBC #Protein Energy Malnutrition On soft diet On nutritonal supplement #Hypokalemia BMP #HTN Lisinopril 10mg Monitor Visit type - Emergency Visit Emergency Visit: Yes ED Registration Date: 08/30/17 Care time: The patient presented to the Emergency Department on the above date and was hospitalized for further evaluation of their emergent condition. - New Patient This patient is new to me today: No - Critical Care Critical Care patient: No - Discharge Referral Referred to [facility] No
[2017-09-06] MEDS ORDERED: PIPERACILLIN/TAZOBACTAM 4.5 GM VIAL IVPB ONE ×4 (01:07→21:43)
[2017-09-06] MEDS ORDERED: DEXTROSE 5%-WATER 100 ML IVPB ONE ×4 (01:07→21:43)
[2017-09-06] MEDS: PIPERACILLIN/TAZOB 4.5 GM 4.5 GM in DEXTROSE 5%-WATER 100 ML IVPB SCH ×3 (01:15→17:57)
[2017-09-06] MEDS: HEPARIN NA (PORCINE) 5,000 UNITS/ML 1ML VIAL SQ SCH ×3 (05:57→22:52)
[2017-09-06] MEDS: AMINO ACIDS/PROTEIN HYDROLYS 30 ML LIQUID.PKT PO SCH ×2 (08:20→17:56)
[2017-09-06 08:27] LABS: BASOPHIL 1.1 % (0-2.0); EOSINOPHIL 5.8 % (0-4.5); MCH 31.4 pg (25.7-33.7); MCHC 34.3 g/dl (32.0-35.9); MEAN CELL VOLUME 91.7 fl (80-96); MEAN PLT VOLUME 7.5 fl (7.5-11.1); NEUTROPHILS 64.3 % (42.8-82.8); PLATELET COUNT 419 K/MM3 (134-434); RDW 13.4 % (11.9-15.9); WHITE BLOOD COUNT 4.1 K/mm3 (4.0-10.0)
[2017-09-06 08:51] LABS: ANION GAP 10 (8-16); CALCIUM 8.3 mg/dL (8.5-10.1); CO2 27 mmol/L (21-32); GLUCOSE,RANDOM 80 mg/dL (74-106)
[2017-09-06 08:52] LABS: CREATININE 0.8 mg/dL (0.7-1.3); PHOSPHOROUS 3.5 mg/dL (2.5-4.9)
[2017-09-06] MEDS ORDERED: PT OWN MED DRAWER 7, Y5N ONE (10:03)
[2017-09-06] MEDS: LISINOPRIL 10 MG TABLET (FP) PO SCH (10:05)
[2017-09-06] MEDS: FERROUS GLUCONATE 324 MG TAB (FP) PO SCH ×2 (10:06→22:52)
[2017-09-06] MEDS: LACTOBACILLUS ACIDOPHILUS 1 EACH TAB (FP) PO SCH (10:06)
--- NOTE | 2017-09-06 11:55 | PN ---
Progress Note (short form) - Note Progress Note: Subjective: No fever or chills , has no abd pain , cont with diarrhea Objective: Vital Signs: Last Vital Signs Temp Pulse Resp BP Pulse Ox 98.4 F 84 18 121/67 97 09/06/17 09:00 09/06/17 09:00 09/06/17 09:00 09/06/17 09:00 09/05/17 21:00 Laboratory Results - last 24 hr 09/05/17 09/06/17 09/06/17 14:35 06:00 08:35 WBC 4.1 RBC 2.74 L Hgb 8.6 L Hct 25.1 L MCV 91.7 MCH 31.4 MCHC 34.3 RDW 13.4 Plt Count 419 MPV 7.5 Neutrophils % 64.3 Lymphocytes % 17.1 Monocytes % 11.7 H Eosinophils % 5.8 H Basophils % 1.1 Sodium 137 Potassium 3.6 Chloride 100 Carbon Dioxide 27 Anion Gap 10 BUN 8 Creatinine 0.8 Random Glucose 80 Lactic Acid 1.5 Calcium 8.3 L Phosphorus 3.5 Magnesium 2.0 Physical Exam: NAD , AAOx3 CV: RRR Lungs: CTAB Ext : no edema . ABD: soft, NT, mid line surgical wounds with ford, the lower part of the wound has an open area with a drainage bag attached. Nl BS , no distention , minimal tenderness to palpation around wound ASSESSMENT AND PLAN: 62 y/o man with h/o abd wall hernia after laparotomy, h/o HTN , recent surgery for a strangulated hernia ( small bowel resection adn primary anastomossi) , now presents with drainage from abd wound. he was found to have abd abscess . 1- ABd abscess, with possible enterocutaneous fistula Still no leukocytosis or fever. wound cx with E coli and E Faecalis . Stable condition today - cont zosyn - follow amount of drainage form wound- might need repeat imaging to evaluate abscess - cont to hold home Aspirin in case he needs a procedure - cont protein supplements 2- H/o HTN: Cont lisinopril daily 3- DVT px. Visit type - Emergency Visit Emergency Visit: Yes ED Registration Date: 08/30/17 Care time: The patient presented to the Emergency Department on the above date and was hospitalized for further evaluation of their emergent condition. - New Patient This patient is new to me today: No - Critical Care Critical Care patient: No
--- NOTE | 2017-09-06 12:03 | PN ---
Progress Note, Physician History of Present Illness: stable draining quite a bit - Current Medication List Current Medications: Active Medications Amino Acids (Prosource No Carb Liquid Pkt) 30 ml PO BID@0800,1730 [facility] Last Admin: 09/06/17 08:20 Dose: 30 ml Diphenoxylate HCl/Atropine (Lomotil -) 1 combo PO Q8H PRN PRN Reason: DIARRHEA Ferrous Gluconate (Fergon -) 324 mg PO BID [facility] Last Admin: 09/06/17 10:06 Dose: 324 mg Heparin Sodium (Porcine) (Heparin -) 5,000 unit SQ TID [facility] Last Admin: 09/06/17 05:57 Dose: 5,000 unit Piperacillin Sod/Tazobactam (Sod 4.5 gm/ Dextrose) 100 mls @ 200 mls/hr IVPB Q8H-IV [facility] Last Admin: 09/06/17 10:05 Dose: 200 mls/hr Lactobacillus Acidophilus (Bacid -) 1 tab PO DAILY [facility] Last Admin: 09/06/17 10:06 Dose: 1 tab Lisinopril (Prinivil) 10 mg PO DAILY [facility] Last Admin: 09/06/17 10:05 Dose: 10 mg Ondansetron HCl (Zofran Injection) 4 mg IVPB Q6H PRN PRN Reason: NAUSEA - Objective Vital Signs: Vital Signs Temperature 98.4 F 09/06/17 09:00 Pulse Rate 84 09/06/17 09:00 Respiratory Rate 18 09/06/17 09:00 Blood Pressure 121/67 09/06/17 09:00 O2 Sat by Pulse Oximetry (%) 97 09/05/17 21:00 Constitutional: Yes: No Distress, Calm Cardiovascular: Yes: Regular Rate and Rhythm Respiratory: Yes: Regular, CTA Bilaterally Gastrointestinal: Yes: Normal Bowel Sounds, Soft, Other (colostomy bag in place) Musculoskeletal: Yes: WNL Extremities: Yes: WNL Neurological: Yes: Alert, Oriented Labs: CBC, BMP 09/06/17 06:00 09/06/17 08:35 INR, PTT INR 1.50 (0.82-1.09) H 08/31/17 08:34 Assessment/Plan Surgical site infection/ intra-abd abscess s/p Ventral incarcerated hernia repair and anastomosis HTN enterocutaneous fistula plan conintue abx ct results noted once drainage is less then will switch to oral rest as per surgery and primary rest as per primary
[2017-09-07] MEDS: PIPERACILLIN/TAZOB 4.5 GM 4.5 GM in DEXTROSE 5%-WATER 100 ML IVPB SCH ×3 (02:00→17:36)
[2017-09-07] MEDS: HEPARIN NA (PORCINE) 5,000 UNITS/ML 1ML VIAL SQ SCH ×3 (06:07→21:11)
[2017-09-07] MEDS ORDERED: PIPERACILLIN/TAZOBACTAM 4.5 GM VIAL IVPB ONE ×2 (07:27→16:00)
[2017-09-07] MEDS ORDERED: DEXTROSE 5%-WATER 100 ML IVPB ONE ×2 (07:27→16:00)
[2017-09-07] MEDS: AMINO ACIDS/PROTEIN HYDROLYS 30 ML LIQUID.PKT PO SCH ×2 (08:11→17:36)
[2017-09-07] MEDS: LACTOBACILLUS ACIDOPHILUS 1 EACH TAB (FP) PO SCH (09:57)
[2017-09-07] MEDS: LISINOPRIL 10 MG TABLET (FP) PO SCH (09:57)
[2017-09-07] MEDS: FERROUS GLUCONATE 324 MG TAB (FP) PO SCH ×2 (09:57→21:11)
--- NOTE | 2017-09-07 11:16 | PN ---
Progress Note (short form) - Note Progress Note: Subjective: no abd pain, c ont with diarrhea , Has emptied his drainage bag. NO fever or chills Objective: Vital Signs: Last Vital Signs Temp Pulse Resp BP Pulse Ox 98.2 F 67 18 132/76 97 09/07/17 05:00 09/07/17 05:00 09/07/17 05:00 09/07/17 05:00 09/06/17 21:00 Physical Exam: NAD , AAOx3 CV: RRR Lungs: CTAB Ext : no edema . ABD: soft, NT, mid line surgical wounds with ford, the lower part of the wound has an open area with a drainage bag attached. brownish greenish fluid seen in bag Nl BS , no distention , minimal tenderness to palpation around wound ASSESSMENT AND PLAN: 62 y/o man with h/o abd wall hernia after laparotomy, h/o HTN , recent surgery for a strangulated hernia ( small bowel resection adn primary anastomosis) , now presents with drainage from abd wound. he was found to have abd abscess . 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 - check CBC and electrolytes tomorrow 2- H/o HTN: Cont lisinopril daily 3- DVT px. Visit type - Emergency Visit Emergency Visit: Yes ED Registration Date: 08/30/17 Care time: The patient presented to the Emergency Department on the above date and was hospitalized for further evaluation of their emergent condition. - New Patient This patient is new to me today: No - Critical Care Critical Care patient: No
--- NOTE | 2017-09-07 13:01 | PN ---
Progress Note, Physician History of Present Illness: stable colostomy bag draining - Current Medication List Current Medications: Active Medications Amino Acids (Prosource No Carb Liquid Pkt) 30 ml PO BID@0800,1730 [facility] Last Admin: 09/07/17 08:11 Dose: 30 ml Ferrous Gluconate (Fergon -) 324 mg PO BID [facility] Last Admin: 09/07/17 09:57 Dose: 324 mg Heparin Sodium (Porcine) (Heparin -) 5,000 unit SQ TID [facility] Last Admin: 09/07/17 06:07 Dose: 5,000 unit Piperacillin Sod/Tazobactam (Sod 4.5 gm/ Dextrose) 100 mls @ 200 mls/hr IVPB Q8H-IV [facility] Last Admin: 09/07/17 09:57 Dose: 200 mls/hr Lactobacillus Acidophilus (Bacid -) 1 tab PO DAILY [facility] Last Admin: 09/07/17 09:57 Dose: 1 tab Lisinopril (Prinivil) 10 mg PO DAILY [facility] Last Admin: 09/07/17 09:57 Dose: 10 mg Ondansetron HCl (Zofran Injection) 4 mg IVPB Q6H PRN PRN Reason: NAUSEA - Objective Vital Signs: Vital Signs Temperature 98.4 F 09/07/17 09:00 Pulse Rate 67 09/07/17 09:00 Respiratory Rate 18 09/07/17 09:00 Blood Pressure 112/62 09/07/17 09:00 O2 Sat by Pulse Oximetry (%) 97 09/06/17 21:00 Constitutional: Yes: No Distress, Calm Cardiovascular: Yes: Regular Rate and Rhythm Respiratory: Yes: Regular, CTA Bilaterally Gastrointestinal: Yes: Normal Bowel Sounds, Soft, Other (colostomy bag n place) Musculoskeletal: Yes: WNL Extremities: Yes: WNL Neurological: Yes: Alert, Oriented Psychiatric: Yes: Alert, Oriented Labs: CBC, BMP 09/06/17 06:00 09/06/17 08:35 INR, PTT INR 1.50 (0.82-1.09) H 08/31/17 08:34 Assessment/Plan Surgical site infection/ intra-abd abscess s/p Ventral incarcerated hernia repair and anastomosis HTN enterocutaneous fistula plan conintue abx ct results noted once drainage is less then will switch to oral rest as per surgery and primary rest as per primary
[2017-09-08] MEDS ORDERED: DEXTROSE 5%-WATER 100 ML IVPB ONE ×3 (03:17→17:26)
[2017-09-08] MEDS ORDERED: PIPERACILLIN/TAZOBACTAM 4.5 GM VIAL IVPB ONE ×3 (03:17→17:26)
[2017-09-08] MEDS: PIPERACILLIN/TAZOB 4.5 GM 4.5 GM in DEXTROSE 5%-WATER 100 ML IVPB SCH ×3 (03:22→17:28)
[2017-09-08] MEDS: HEPARIN NA (PORCINE) 5,000 UNITS/ML 1ML VIAL SQ SCH ×3 (06:09→21:30)
[2017-09-08 07:48] LABS: BASOPHIL 0.7 % (0-2.0); EOSINOPHIL 5.1 % (0-4.5); MCH 30.9 pg (25.7-33.7); MCHC 33.3 g/dl (32.0-35.9); MEAN CELL VOLUME 92.8 fl (80-96); MEAN PLT VOLUME 7.1 fl (7.5-11.1); PLATELET COUNT 440 K/MM3 (134-434); RDW 13.6 % (11.9-15.9); WHITE BLOOD COUNT 5.2 K/mm3 (4.0-10.0)
[2017-09-08 08:11] LABS: MAGNESIUM 2.2 mg/dL (1.8-2.4)
[2017-09-08 08:13] LABS: PHOSPHOROUS 3.8 mg/dL (2.5-4.9)
[2017-09-08] MEDS: AMINO ACIDS/PROTEIN HYDROLYS 30 ML LIQUID.PKT PO SCH ×2 (08:39→17:27)
[2017-09-08] MEDS: LACTOBACILLUS ACIDOPHILUS 1 EACH TAB (FP) PO SCH (11:01)
[2017-09-08] MEDS: LISINOPRIL 10 MG TABLET (FP) PO SCH (11:02)
[2017-09-08] MEDS: FERROUS GLUCONATE 324 MG TAB (FP) PO SCH ×2 (11:02→21:30)
--- NOTE | 2017-09-08 11:02 | PN ---
Physical Exam: SUBJECTIVE: Patient seen and examined No new c/o. No fevers, abdominal pain. Passed one episode of loose stool yesterday, none yet this am. Bag still draining. OBJECTIVE: Vital Signs Period Temp Pulse Resp BP Sys/Jacome Pulse Ox Last 24 Hr 98.1 F-98.6 F 68-71 18-20 119-134/69-72 98 GENERAL: The patient is awake, alert, and fully oriented, in no acute distress, not warm to touch. ENT: moist mucous membranes. LUNGS: Breath sounds equal, clear to auscultation bilaterally, no wheezes, no crackles HEART: Regular rate and rhythm, S1, S2 without murmur, rub or gallop. ABDOMEN: Soft, nontender, full, normoactive bowel sounds, midline abdominal incision with ford seen supraumbilically, clean and dry. Drainage bag in place infraumbilically, draining significant brownish colored liquid stool. No pus or blood seen. EXTREMITIES: 2+ pulses, warm, well-perfused, no edema. NEUROLOGICAL: Cranial nerves II through XII grossly intact. Normal speech, normal gait PSYCH: Normal mood, normal affect. Laboratory Results - last 24 hr 09/08/17 09/08/17 06:45 06:45 WBC 5.2 RBC 2.95 L Hgb 9.1 L Hct 27.4 L MCV 92.8 MCH 30.9 MCHC 33.3 RDW 13.6 Plt Count 440 H MPV 7.1 L Neutrophils % 68.0 Lymphocytes % 17.3 Monocytes % 8.9 Eosinophils % 5.1 H Basophils % 0.7 Potassium 4.0 Phosphorus 3.8 Magnesium 2.2 Active Medications Generic Name Dose Route Start Last Admin Trade Name Mauricioq PRN Reason Stop Dose Admin Amino Acids 30 ml 09/01/17 17:30 09/08/17 08:39 Prosource No Carb Liquid Pkt PO 30 ml BID@0800,1730 [facility] Administration Ferrous Gluconate 324 mg 09/03/17 22:00 09/07/17 21:11 Fergon - PO 324 mg BID [facility] Administration Heparin Sodium (Porcine) 5,000 unit 09/02/17 14:15 09/08/17 06:09 Heparin - SQ Not Given TID [facility] Piperacillin Sod/Tazobactam 100 mls @ 200 mls/hr 09/03/17 18:00 09/08/17 03:22 Sod 4.5 gm/ Dextrose IVPB 200 mls/hr Q8H-IV [facility] Administration Lactobacillus Acidophilus 1 tab 09/01/17 13:30 09/07/17 09:57 Bacid - PO 1 tab DAILY [facility] Administration Lisinopril 10 mg 09/03/17 13:45 09/07/17 09:57 Prinivil PO 10 mg DAILY [facility] Administration Ondansetron HCl 4 mg 08/31/17 15:40 Zofran Injection IVPB Q6H PRN NAUSEA ASSESSMENT/PLAN: 62y M with PMHX of HTN, history of surgery for incarcerated ventral hernia and anastomosis on 08/21/17 presenting with increased foul-smelling drainage from surgical wound site, 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 #Wound abscess Day 9 on Zosyn, Pain management Continue liberate oral fluids Monitor #enterocutaneous fistula [place] drainage bag in place to drain feces Cont AB Nutritional supplement #Anemia Ferrous sulphate Monitor CBC #Protein Energy Malnutrition On soft diet On nutritonal supplement #Hypokalemia: resolved Will monitor BMP #HTN Lisinopril 10mg Monitor #FEN [place] oral fluids Monitor electrolytes and replete as needed Nutrition- continue regular diet with nutritional supplements #Prophylaxis DVT-Heparin 5,000U tids #Dispo: Med Surg Discharge dependent on reduced drainage and switching to PO antibiotics per ID Visit type - Emergency Visit Emergency Visit: Yes ED Registration Date: 08/30/17 Care time: The patient presented to the Emergency Department on the above date and was hospitalized for further evaluation of their emergent condition. - New Patient This patient is new to me today: No - Critical Care Critical Care patient: No - Discharge Referral Referred to [facility] Med P.C[facility] No
[2017-09-08] MEDS ORDERED: PT OWN MED DRAWER 7, Y5N ONE (14:00)
--- NOTE | 2017-09-08 16:49 | PN ---
Teaching Attending Note Name of Resident: Norma Sales ATTENDING PHYSICIAN STATEMENT I saw and evaluated the patient. I reviewed the resident's note and discussed the case with the resident. I agree with the resident's findings and plan as documented. SUBJECTIVE: No fever oer chills. has no abd pain , diarrhea improved and stool became more formed. OBJECTIVE: NAD , AAOx3 CV: RRR Lungs: CTAB Ext : no edema . ABD: soft, NT, mid line surgical wounds with ford, the lower part of the wound has an open area with a drainage bag attached. brownish greenish fluid seen in bag Nl BS , no distention , minimal tenderness to palpation around wound ASSESSMENT AND PLAN: 62 y/o man with h/o abd wall hernia after laparotomy, h/o HTN , recent surgery for a strangulated hernia ( small bowel resection adn primary anastomosis) , now presents with drainage from abd wound. he was found to have abd abscess . 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 - amount of drainage will decide on PO ABx 2- H/o HTN: Cont lisinopril daily 3- DVT px.
--- NOTE | 2017-09-08 18:39 | PN ---
Progress Note, Physician History of Present Illness: stable colostomy bag draining no fevers - Current Medication List Current Medications: Active Medications Amino Acids (Prosource No Carb Liquid Pkt) 30 ml PO BID@0800,1730 [facility] Last Admin: 09/08/17 17:27 Dose: 30 ml Ferrous Gluconate (Fergon -) 324 mg PO BID [facility] Last Admin: 09/08/17 11:02 Dose: 324 mg Heparin Sodium (Porcine) (Heparin -) 5,000 unit SQ TID [facility] Last Admin: 09/08/17 14:05 Dose: 5,000 unit Piperacillin Sod/Tazobactam (Sod 4.5 gm/ Dextrose) 100 mls @ 200 mls/hr IVPB Q8H-IV [facility] Last Admin: 09/08/17 17:28 Dose: 200 mls/hr Lactobacillus Acidophilus (Bacid -) 1 tab PO DAILY [facility] Last Admin: 09/08/17 11:01 Dose: 1 tab Lisinopril (Prinivil) 10 mg PO DAILY [facility] Last Admin: 09/08/17 11:02 Dose: 10 mg Ondansetron HCl (Zofran Injection) 4 mg IVPB Q6H PRN PRN Reason: NAUSEA - Objective Vital Signs: Vital Signs Temperature 98.1 F 09/08/17 17:17 Pulse Rate 65 09/08/17 17:17 Respiratory Rate 20 09/08/17 17:17 Blood Pressure 123/73 09/08/17 17:17 O2 Sat by Pulse Oximetry (%) 98 09/07/17 21:00 Constitutional: Yes: No Distress, Calm Respiratory: Yes: Regular, CTA Bilaterally Gastrointestinal: Yes: Normal Bowel Sounds, Soft, Other (colostomy bag in place) Musculoskeletal: Yes: WNL Extremities: Yes: WNL Neurological: Yes: Alert, Oriented Psychiatric: Yes: Alert, Oriented Labs: CBC, BMP 09/08/17 06:45 09/08/17 06:45 INR, PTT INR 1.50 (0.82-1.09) H 08/31/17 08:34 Assessment/Plan Surgical site infection/ intra-abd abscess s/p Ventral incarcerated hernia repair and anastomosis HTN enterocutaneous fistula plan conintue abx will d/w with surgery about the comfort level if ok with surgery will switch to oral abx
--- NOTE | 2017-09-08 21:00 | PN ---
Progress Note, Physician - Current Medication List Current Medications: Active Medications Amino Acids (Prosource No Carb Liquid Pkt) 30 ml PO BID@0800,1730 [facility] Last Admin: 09/08/17 17:27 Dose: 30 ml Ferrous Gluconate (Fergon -) 324 mg PO BID [facility] Last Admin: 09/08/17 11:02 Dose: 324 mg Heparin Sodium (Porcine) (Heparin -) 5,000 unit SQ TID [facility] Last Admin: 09/08/17 14:05 Dose: 5,000 unit Piperacillin Sod/Tazobactam (Sod 4.5 gm/ Dextrose) 100 mls @ 200 mls/hr IVPB Q8H-IV [facility] Last Admin: 09/08/17 17:28 Dose: 200 mls/hr Lactobacillus Acidophilus (Bacid -) 1 tab PO DAILY [facility] Last Admin: 09/08/17 11:01 Dose: 1 tab Lisinopril (Prinivil) 10 mg PO DAILY [facility] Last Admin: 09/08/17 11:02 Dose: 10 mg Ondansetron HCl (Zofran Injection) 4 mg IVPB Q6H PRN PRN Reason: NAUSEA - Objective Vital Signs: Vital Signs Temperature 98.1 F 09/08/17 17:17 Pulse Rate 65 09/08/17 17:17 Respiratory Rate 20 09/08/17 17:17 Blood Pressure 123/73 09/08/17 17:17 O2 Sat by Pulse Oximetry (%) 98 09/07/17 21:00 Labs: CBC, BMP 09/08/17 06:45 09/08/17 06:45 INR, PTT INR 1.50 (0.82-1.09) H 08/31/17 08:34 Problem List - Problems (1) Dehiscence of surgical wound Code(s): T81.31XA - DISRUPTION OF EXTERNAL OPERATION (SURGICAL) WOUND, NEC, INIT Qualifiers: Encounter type: subsequent encounter Qualified Code(s): T81.31XD - Disruption of external operation (surgical) wound, not elsewhere classified, subsequent encounter; T81.31XD - Disruption of external operation (surgical) wound, not elsewhere classified, subsequent encounter (2) Wound dehiscence Code(s): T81.30XA - DISRUPTION OF WOUND, UNSPECIFIED, INITIAL ENCOUNTER (3) Intra-abdominal abscess post-procedure Code(s): T81.4XXA - INFECTION FOLLOWING A PROCEDURE, INITIAL ENCOUNTER K65.1 - PERITONEAL ABSCESS Qualifiers: Encounter type: initial encounter Qualified Code(s): T81.4XXA - Infection following a procedure, initial encounter; T81.4XXA - Infection following a procedure, initial encounter; K65.1 - Peritoneal abscess; K65.1 - Peritoneal abscess; K65.1 - Peritoneal abscess (4) Peritoneal abscess Code(s): K65.1 - PERITONEAL ABSCESS (5) Malnutrition Code(s): E46 - UNSPECIFIED PROTEIN-CALORIE MALNUTRITION Qualifiers: Malnutrition type: protein-calorie malnutrition Protein-calorie malnutrition severity: severe Qualified Code(s): E43 - Unspecified severe protein-calorie malnutrition; E43 - Unspecified severe protein-calorie malnutrition; E43 - Unspecified severe protein-calorie malnutrition (6) Anemia Code(s): D64.9 - ANEMIA, UNSPECIFIED Qualifiers: Anemia type: other cause Assessment/Plan Surgery; patient is afebrile, tolerating diet. He is having bowel movements. Abdomen is soft . Drainage about 50-70 ml. Low outout enteric fistula. OK to start oral antibiotics and consider discharge.
[2017-09-09] MEDS ORDERED: DEXTROSE 5%-WATER 100 ML IVPB ONE ×2 (00:02→08:51)
[2017-09-09] MEDS ORDERED: PIPERACILLIN/TAZOBACTAM 4.5 GM VIAL IVPB ONE ×2 (00:02→08:51)
[2017-09-09] MEDS: PIPERACILLIN/TAZOB 4.5 GM 4.5 GM in DEXTROSE 5%-WATER 100 ML IVPB SCH ×2 (01:16→09:43)
[2017-09-09] MEDS: HEPARIN NA (PORCINE) 5,000 UNITS/ML 1ML VIAL SQ SCH ×2 (05:30→15:27)
[2017-09-09 07:18] LABS: MCH 31.3 pg (25.7-33.7); MCHC 33.6 g/dl (32.0-35.9); MEAN CELL VOLUME 93.2 fl (80-96); MEAN PLT VOLUME 7.3 fl (7.5-11.1); NEUTROPHILS 65.1 % (42.8-82.8); PLATELET COUNT 440 K/MM3 (134-434); WHITE BLOOD COUNT 5.5 K/mm3 (4.0-10.0)
[2017-09-09 07:39] LABS: MAGNESIUM 2.1 mg/dL (1.8-2.4); PHOSPHOROUS 4.2 mg/dL (2.5-4.9)
[2017-09-09] MEDS: FERROUS GLUCONATE 324 MG TAB (FP) PO SCH (09:43)
[2017-09-09] MEDS: LACTOBACILLUS ACIDOPHILUS 1 EACH TAB (FP) PO SCH (09:43)
[2017-09-09] MEDS: LISINOPRIL 10 MG TABLET (FP) PO SCH (09:44)
[2017-09-09] MEDS: AMINO ACIDS/PROTEIN HYDROLYS 30 ML LIQUID.PKT PO SCH (09:44)
--- NOTE | 2017-09-09 14:37 | PN ---
Progress Note, Physician History of Present Illness: doing well no issues drainage decreasing - Current Medication List Current Medications: Active Medications Amino Acids (Prosource No Carb Liquid Pkt) 30 ml PO BID@0800,1730 [facility] Last Admin: 09/09/17 09:44 Dose: 30 ml Ferrous Gluconate (Fergon -) 324 mg PO BID [facility] Last Admin: 09/09/17 09:43 Dose: 324 mg Piperacillin Sod/Tazobactam (Sod 4.5 gm/ Dextrose) 100 mls @ 200 mls/hr IVPB Q8H-IV [facility] Last Admin: 09/09/17 09:43 Dose: 200 mls/hr Lactobacillus Acidophilus (Bacid -) 1 tab PO DAILY [facility] Last Admin: 09/09/17 09:43 Dose: 1 tab Lisinopril (Prinivil) 10 mg PO DAILY [facility] Last Admin: 09/09/17 09:44 Dose: 10 mg Ondansetron HCl (Zofran Injection) 4 mg IVPB Q6H PRN PRN Reason: NAUSEA - Objective Vital Signs: Vital Signs Temperature 98.1 F 09/09/17 10:00 Pulse Rate 70 09/09/17 10:00 Respiratory Rate 18 09/09/17 10:00 Blood Pressure 130/81 09/09/17 10:00 O2 Sat by Pulse Oximetry (%) 98 09/08/17 21:00 Constitutional: Yes: No Distress, Calm HENT: Yes: Atraumatic Cardiovascular: Yes: Regular Rate and Rhythm Respiratory: Yes: Regular, CTA Bilaterally Gastrointestinal: Yes: Normal Bowel Sounds, Soft, Other (colostomy bag) Musculoskeletal: Yes: WNL Extremities: Yes: WNL Wound/Incision: Yes: Clean/Dry, Well Approximated Psychiatric: Yes: Alert, Oriented Labs: CBC, BMP 09/09/17 06:30 09/09/17 06:30 INR, PTT INR 1.50 (0.82-1.09) H 08/31/17 08:34 Assessment/Plan Surgical site infection/ intra-abd abscess s/p Ventral incarcerated hernia repair and anastomosis HTN enterocutaneous fistula plan oral abx augmentin 875 mg bid for 10 days
[2017-09-09 15:19] VITALS: BP 116/67; PULSE 72; TEMP 97.9
--- NOTE | 2017-09-09 16:45 | PN ---
Teaching Attending Note ATTENDING PHYSICIAN STATEMENT I saw and evaluated the patient. I reviewed the resident's note and discussed the case with the resident. I agree with the resident's findings and plan as documented. SUBJECTIVE: OBJECTIVE: ASSESSMENT AND PLAN:
--- NOTE | 2017-09-09 18:37 | DS ---
Physical Exam: SUBJECTIVE: Patient seen and examined. No new complaints, no fever, chills or abdominal pain. Still draining into the abdominal drain OBJECTIVE: Vital Signs Period Temp Pulse Resp BP Sys/Jacome Pulse Ox Last 24 Hr 97.9 F-98.1 F 67-72 18-20 116-130/67-83 98 PHYSICAL EXAM GENERAL: The patient is awake, alert, and fully oriented, in no acute distress. EYES: conjunctiva clear. ENT:moist mucous membranes. LUNGS: Breath sounds equal, clear to auscultation bilaterally HEART: Regular rate and rhythm, S1, S2 without murmur. ABDOMEN: Soft, nontender, nondistended, normoactive bowel sounds, midline surgical incison supraumbilical with ford in place, clean and dry. Infraumbilical, drain bag in place draining greenish brown liquid from enterocutaneous fistulous opening from prior surgical wound site EXTREMITIES: 2+ pulses, warm, well-perfused, no edema. NEUROLOGICAL: Cranial nerves II through XII grossly intact. Normal speech, normal gait. PSYCH: Normal mood, normal affect. 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 Extraluminal gas bubbles along R anterior portion of collection. Possible dehiscence with perforation versus extension of infection into mesenteric / omental fat as well as small bowel wall thickened. Gram stain of wound culture: E.coli, E. fecalis and staph coagulase negative Iron studies: Fe-15, TIBC-154, iron sat-10, transferrin-[address] abd w/contrast on 09/05/17- Showed decreasing R mid-abdominal abscess #Wound abscess Received Zosyn 3.35g Q8H, Will continue on Tabs Augmentin 875mg bid for 10 more days See Infectious disease specialist- Dr Fay in one week to follow up #enterocutaneous fistula [place] drainage bag in place to drain liquid Cont augmentin See surgeon-Dr Orlando in one week to review abscess/ fistula and do a repeat CT scan #Anemia: mixed ACD and iron deficiency_ Ferrous sulphate Monitor CBC #Protein Energy Malnutrition On soft diet On nutritonal supplement #HTN Lisinopril 10mg, patient's combined pill of Lisinopril: HCTZ was changed to lisinopril 10mg only since he is currently draining His ASA was also held Patient will follow up with his PCP, he had elected to meet in the [facility]idents clinic at [address] [place] [address] on Friday09/15/17 at 2.00pm Minutes to complete discharge: 45 Discharge Summary Reason For Visit: POSTOPERATIVE INTRA-ABDOMINAL ABSCESS Condition: Improved - Instructions Diet, Activity, Other Instructions: You were admitted for an abscess following a complicated hernia repair. You have been on iv antibiotics and have been having the abscess drain since you came in. It was also noticed that you have a connection between the skin and the intestines that is draining feces, but walled off. Please repeat the CT scan of your abdomen with contrast in a week's time after discharge- we will need to check to see if all of the collection has drained out or if you will still need for it to be drained out. You will follow up with your surgeon- Dr Orlando in a week to review the wound and drainage You will follow up with a primary care doctor. You will follow up with the doctor in charge of antibiotics in a week's time to assess your antibiotic use. You mentioned that you were willing to follow up with the Doctors from [facility], So I will make an appointment for you to follow up with me, Dr Norma Sales at [address] [place] [address] on Friday09/15/17 at 2.00pm to follow up management for your high blood pressure and elevated cholesterol. You will continue on Lisinopril 10mg alone now,and follow up with your primary doctor as to whether or not you need to continue with the hydrochlorothiazise after the drain is removed. Also we would like you to hold off taking your aspirin for now when you return home. If you have fever, chills, or pus drainage, or feel you are not getting better, please go to the nearest emergency room. Referrals: Karel Padilla MD [Staff Physician] - 1 Week (Follow up on Friday09/15/[address] Norma Sales at 2.00pm for your blood pressure control and hyperlipidemia) Nima Fay MD [Staff Physician] - 1 Week (Please follow up with your antibiotic doctor in a week's time to check about the antibiotic use.) Jg Orlando MD [Staff Physician] - 1 Week (Please follow up with Dr Orlando about the drainage, and about when to have the repeat CT scan of the abdomen) Disposition: HOME - Home Medications Comprehensive Discharge Medication List: Ambulatory Orders Amox-Tr/K Cl [Augmentin - 875Mg Tablet] 1 tab PO BID #20 tablet 09/09/17 Ferrous Gluconate [Fergon -] 324 mg PO BID #60 tab 09/09/17 Lactobacillus Acidophilus [Bacid -] 1 tab PO DAILY #30 tab 09/09/17 Lisinopril [Prinivil] 10 mg PO DAILY #30 tablet 09/09/17 This patient is new to me today: No Emergency Visit: Yes ED Registration Date: 08/30/17 Care time: The patient presented to the Emergency Department on the above date and was hospitalized for further evaluation of their emergent condition. Critical Care patient: No - Discharge Referral Referred to [facility] No Physician Referral: Macy Solis MD ([facility]) ([email or web address])
== END 2017-09-09 17:15 | disposition home or self-care (01) | DRG 920 ==
LOC: JER 16:57 → JERBED 23:41 → J8W 08-31 00:40
PROVIDERS: ADMIT Internal Medicine; ATTEND Internal Medicine
DX: T81.32XA Disruption of internal operation (surgical) wound, not elsewhere classified, initial encounter (principal); T81.4XXA Infection following a procedure, initial encounter; K63.2 Fistula of intestine; E46 Unspecified protein-calorie malnutrition; E87.2 Acidosis; E87.1 Hypo-osmolality and hyponatremia; Y83.9 Surgical procedure, unspecified as the cause of abnormal reaction of the patient, or of later complication, without mention of misadventure at the time of the procedure; I10 Essential (primary) hypertension; D50.9 Iron deficiency anemia, unspecified; Z68.24 Body mass index [BMI] 24.0-24.9, adult; E87.6 Hypokalemia; R19.7 Diarrhea, unspecified; E88.09 Other disorders of plasma-protein metabolism, not elsewhere classified
CPT/HCPCS: 36415; 74177-TC; 80048; 80053; 80076; 82728; 83540; 83550; 83605; 83735; 84100; 84132; 84466; 85025; 85610; 85730; 86850; 86900; 86901; 87040; 87070; 87186; 87205; 87324; 87449; 93005; 93010; 99282-25; J1644; Q9967